=== PATIENT | female | born 1995 | race Caucasian/White ===

== ENCOUNTER 2020-01-27 11:38 | Outpatient (REF) | payer OTHER, SELFPAY | END 2020-01-27 11:39 | disposition home or self-care (01) | LOC: HO.LNP 11:38 | PROVIDERS: Visit Provider Hospitalist | DX: Z20.828 Contact with and (suspected) exposure to other viral communicable diseases (principal) | CPT/HCPCS: 87635 ==

== ENCOUNTER 2020-03-04 12:12 | Outpatient (REF) | payer OTHER, SELFPAY | END 2020-03-04 12:13 | disposition home or self-care (01) | LOC: HO.LNP 12:12 | PROVIDERS: Visit Provider Nurse Practitioner Family | DX: Z13.9 Encounter for screening, unspecified (principal) | CPT/HCPCS: 87071; 87880 ==

== ENCOUNTER 2020-06-29 08:59 | Outpatient (REF) | payer OTHER, SELFPAY | END 2020-06-29 09:00 | disposition home or self-care (01) | LOC: HO.LAB 08:59 | PROVIDERS: Visit Provider Nurse Practitioner Family | DX: R50.9 Fever, unspecified (principal); H66.003 Acute suppurative otitis media without spontaneous rupture of ear drum, bilateral; Z20.822 Contact with and (suspected) exposure to COVID-19 | CPT/HCPCS: 36415; U0003; U0005 ==

== ENCOUNTER 2020-09-21 08:27 | Outpatient (REF) | payer OTHER, SELFPAY ==
[2020-09-21 11:52] LABS: Alanine Aminotransferase 11 U/L (0-31); Aspartate Amino Transferase 14 U/L (5-31); Cholesterol 215 mg/dL; Glucose Fasting 96 mg/dL (60-99); HDL Cholesterol 48 mg/dL; LDL Cholesterol Calculated 148 mg/dl; Triglycerides 95 mg/dL
[2020-09-21 12:08] LABS: Thyroid Stimulating Hormone 0.86 uIU/mL (0.32-4.0)
[2020-09-21 17:22] LABS: CT PCR NOT DETECTED (Not Detect.); NG PCR NOT DETECTED (Not Detect.)
[2020-09-22 09:42] LABS: BV Int Neg Control Negative (Negative); BV Int Pos Control Positive (Positive)
[2020-09-22 18:32] LABS: DHEA Sulfate 255 mcg/dL (18-391)
[2020-09-25 17:26] LABS: Testosterone, Free 4.8 pg/mL (0.1-6.4); Testosterone, Total 33 ng/dL (2-45)
== END 2020-09-21 08:28 | disposition home or self-care (01) ==
LOC: HO.LAB 08:27
PROVIDERS: PCP Internal Medicine; Visit Provider Advanced Practice Midwife
DX: Z01.419 Encounter for gynecological examination (general) (routine) without abnormal findings (principal); Z11.3 Encounter for screening for infections with a predominantly sexual mode of transmission; E66.01 Morbid (severe) obesity due to excess calories; E78.5 Hyperlipidemia, unspecified; Z87.42 Personal history of other diseases of the female genital tract
CPT/HCPCS: 36415; 80061; 82627; 82947; 84402; 84403; 84443; 84450; 84460; 87480; 87491; 87510; 87591; 87660

== ENCOUNTER 2020-12-22 15:08 | Outpatient (REF) | payer OTHER, SELFPAY ==
[2020-12-22 15:44] LABS: Appearance Urine CLEAR; Color Urine STRAW; Glucose Urine UA NEG (NEG); Leukocyte Esterase Urine 1+ (NEG); Nitrite Urine NEG (NEG); PH 6.5 (5.0-8.0); UACC Culture Trigger YES; Urine Blood NEG (NEG); Urine Ketones NEG (NEG); Urine Protein NEG (NEG-TRACE)
[2020-12-22 16:10] LABS: Bacteria Urine TRACE /LPF; RBC Urine 0 /HPF (0); Squamous Epithelial Cell Urine TRACE /LPF; UACC CULT YES; WBC Urine 0 /HPF (0-4)
== END 2020-12-22 15:09 | disposition home or self-care (01) ==
LOC: HO.LNP 15:08
PROVIDERS: Visit Provider Physician Assistant
DX: N39.0 Urinary tract infection, site not specified (principal)
CPT/HCPCS: 81001; 87086; 87088; 87186

== ENCOUNTER 2021-01-04 09:23 | Outpatient (REF) | payer OTHER, SELFPAY | END 2021-01-04 09:24 | disposition home or self-care (01) | LOC: HO.HMGCLDS 09:23 | PROVIDERS: PCP Internal Medicine; Visit Provider Internal Medicine | DX: Z20.822 Contact with and (suspected) exposure to COVID-19 (principal) | CPT/HCPCS: C9803; U0003; U0005 ==

== ENCOUNTER 2021-04-08 14:45 | Outpatient (REF) | payer OTHER, SELFPAY ==
[2021-04-08 15:50] LABS: Influenza A PCR NEGATIVE (Negative); Influenza B PCR NEGATIVE (Negative); Resp Syncy Virus RNA Qual PCR NEGATIVE (Negative); SARS COV2 PCR INHOUSE POSITIVE (Negative)
== END 2021-04-08 14:46 | disposition home or self-care (01) ==
LOC: HO.LNP 14:45
PROVIDERS: Physician Assistant Medical; Visit Provider Hospitalist
DX: B34.9 Viral infection, unspecified (principal); J06.9 Acute upper respiratory infection, unspecified; Z20.822 Contact with and (suspected) exposure to COVID-19
CPT/HCPCS: 0241U

== ENCOUNTER 2021-05-06 12:20 | Outpatient (REF) | payer OTHER, SELFPAY ==
--- NOTE | ~2021-05-06 | XR_ITS ---
EXAMINATION: XR CHEST CLINICAL INFORMATION: Dyspnea COMPARISON: None TECHNIQUE: 2 views of the chest were obtained. FINDINGS: No significant abnormality is noted involving the heart, lungs, mediastinum, bony thorax or soft tissues. XR/XR chest 2V IMPRESSION: Unremarkable examination.
== END 2021-05-06 12:21 | disposition home or self-care (01) ==
LOC: HO.HMGCX 12:20
PROVIDERS: Visit Provider Internal Medicine
DX: R06.09 Other forms of dyspnea (principal); U09.9 Post COVID-19 condition, unspecified
CPT/HCPCS: 71046

== ENCOUNTER 2021-07-19 09:07 | Outpatient (REF) | payer OTHER, SELFPAY ==
[2021-07-19 15:32] LABS: CT PCR NOT DETECTED (Not Detect.); NG PCR NOT DETECTED (Not Detect.)
[2021-07-20 15:27] LABS: BV Int Neg Control Negative (Negative); BV Int Pos Control Positive (Positive)
== END 2021-07-19 09:08 | disposition home or self-care (01) ==
LOC: HO.LAB 09:07
PROVIDERS: PCP Internal Medicine; Visit Provider Advanced Practice Midwife
DX: R10.2 Pelvic and perineal pain (principal); E66.01 Morbid (severe) obesity due to excess calories; Z20.2 Contact with and (suspected) exposure to infections with a predominantly sexual mode of transmission
CPT/HCPCS: 81003; 87480; 87491; 87510; 87591; 87660; 99212

== ENCOUNTER 2021-08-16 09:06 | Outpatient (REF) | payer OTHER, SELFPAY ==
--- NOTE | ~2021-08-16 | US_ITS ---
EXAMINATION: US PELVIS CLINICAL INFORMATION: Pelvic pain. History of ovarian cyst. COMPARISON: None TECHNIQUE: Ultrasound of the pelvis is performed using both transabdominal and transvaginal transducers along with Doppler. Transvaginal imaging is performed due to inadequate visualization transabdominally. FINDINGS: UTERUS: The uterus is retroverted and measures 6.45 x 3.6 x 5.1 cm. The double wall endometrial thickness is 0.56 cm. The uterus is smooth in contour and has normal myometrial echogenicity. No visible fibroid. ADNEXA: Both ovaries are visualized. There is normal color flow to the adnexa. There is no ovarian torsion. There is no pelvic ascites or fluid collection. Right ovary measures 3.18 x 1.88 x 3.19 cm. Volume 9.99 mL. There is anechoic cyst measuring 1.7 x 1.4 x 1.7 cm. Left ovary measures 3.52 x 1.92 x 3.05 cm and volume 10.79 mL. There is no free fluid in the cul-de-sac. US/US pelvic and transvaginal IMPRESSION: Unremarkable uterus and cervix. Simple cyst right ovary measuring 1.7 cm. Left ovary is unremarkable.
== END 2021-08-16 09:07 | disposition home or self-care (01) ==
LOC: HO.HMGCX 09:06
PROVIDERS: Visit Provider Advanced Practice Midwife
DX: R10.2 Pelvic and perineal pain (principal)
CPT/HCPCS: 76830; 76856

== ENCOUNTER → 2021-08-18 10:17 | Outpatient (BNVA) | payer OTHER, SELFPAY | PROVIDERS: PCP Internal Medicine; Visit Provider Advanced Practice Midwife | DX: Z71.2 Person consulting for explanation of examination or test findings (principal); R10.2 Pelvic and perineal pain | CPT/HCPCS: 99212 ==

== ENCOUNTER 2021-08-30 06:54 | Outpatient (REF) | payer OTHER, SELFPAY ==
[2021-08-30 11:12] LABS: MANUAL DIFF FLAG NO
[2021-08-30 11:21] LABS: Basophils Percent Auto 0.5 % (0-2); Eosinophils Absolute Auto 0.3 X10*3/uL (0.0-0.4); Eosinophils Percent Auto 3.9 % (0-4); Hematocrit 40.1 % (37.0-47.0); Imm Gran Abs Auto 0.01 X10*3/uL (0.00-0.03); Imm Gran Pct Auto 0.1 % (0.0-0.4); Lymphocytes Absolute Auto 3.2 X10*3/uL (1.2-4.9); Lymphocytes Percent Auto 37.8 % (20-40); Mean Corpuscular HGB Conc 32.4 g/dl (31.0-35.0); Mean Corpuscular Hemoglobin 28.8 pg (27.0-33.0); Mean Corpuscular Volume 88.9 fL (80.0-98.0); Mean Platelet Volume 10.4 fL (9.4-12.3); Monocytes Absolute Auto 0.8 X10*3/uL (0.1-1.2); Monocytes Percent Auto 9.7 % (2-11); Neutrophils Absolute Auto 4.1 x10*3/uL (2.0-8.3); Platelet Count 270 X10*3/uL (160-400); Red Blood Count 4.51 X10*6/uL (4.20-5.50); Red Cell Distribution Width 13.2 % (11.0-16.0); White Blood Count 8.5 X10*3/uL (4.8-10.8)
[2021-08-30 11:54] LABS: Alanine Aminotransferase 15 U/L (0-31); Anion Gap 12 (12-20); Aspartate Amino Transferase 15 U/L (5-31); Blood Urea Nitrogen 11 mg/dL (9-16); Calcium 8.6 mg/dL (8.4-10.2); Carbon Dioxide 25 mmol/L (22-29); Chloride 105 mmol/L (96-108); Cholesterol 192 mg/dL; Estimated Glomerular Filt Rate > 60; Glucose Fasting 120 mg/dL (60-99); HDL Cholesterol 38 mg/dL; LDL Cholesterol Calculated 141 mg/dl; Potassium 4.1 mmol/L (3.3-5.1); Sodium 138 mmol/L (135-145); Triglycerides 68 mg/dL
[2021-08-30 11:55] LABS: TSH reflex Free T4 1.39 uIU/mL (0.32-4.0); Vitamin D 25-OH Total 17.7 ng/mL (>30)
== END 2021-08-30 06:55 | disposition home or self-care (01) ==
LOC: HO.HMGCLDS 06:54
PROVIDERS: Visit Provider Internal Medicine
DX: Z00.01 Encounter for general adult medical examination with abnormal findings (principal); K21.9 Gastro-esophageal reflux disease without esophagitis; E78.5 Hyperlipidemia, unspecified; E66.01 Morbid (severe) obesity due to excess calories; I10 Essential (primary) hypertension
CPT/HCPCS: 36415; 80048; 80061; 82306; 84443; 84450; 84460; 85025

== ENCOUNTER 2021-09-11 05:52 | Emergency (ER) | payer OTHER, SELFPAY ==
--- NOTE | 2021-09-11 | ECG_ITS ---
Test Reason : ABD PAIN Blood Pressure : / mmHG Vent. Rate : 088 BPM Atrial Rate : 088 BPM P-R Int : 154 ms QRS Dur : 094 ms QT Int : 374 ms P-R-T Axes : 051 008 020 degrees QTc Int : 452 ms Normal sinus rhythm Possible Left atrial enlargement RSR' or QR pattern in V1 suggests right ventricular conduction delay Borderline ECG No previous ECGs available Referred By: Generic ED Physician Electronically Signed By:BACILIO ALEJANDRE MD
--- NOTE | ~2021-09-11 | US_ITS ---
EXAMINATION: US ABDOMEN LIMITED CLINICAL INFORMATION: Right upper quadrant pain. COMPARISON: None TECHNIQUE: Real-time imaging of the right upper quadrant abdominal viscera. FINDINGS: PANCREAS: Unremarkable. No mass or peripancreatic inflammatory change. LIVER: The liver is normal in size. The liver contour is normal. There is diffusely increased echogenicity consistent with fatty infiltration. No focal hepatic lesion. There is no intrahepatic biliary duct dilatation seen. GALLBLADDER: Cholelithiasis is present with a calculus seen in the region of the neck. The gallbladder wall is approximately 2.5 mm diameter without fluid in the wall and without pericholecystic fluid. There was some tenderness to palpation with the transducer overlying the gallbladder. COMMON BILE DUCT: Normal in caliber measuring 0.4 cm in diameter. RIGHT KIDNEY: Normal. No hydronephrosis. No renal calculi or focal parenchymal lesions. The kidney measures 11.4 cm in maximum dimension. FREE FLUID: None. US/US abdomen limited IMPRESSION: Diffuse fatty infiltration of the liver. Cholelithiasis with tenderness to palpation overlying the gallbladder but without pericholecystic fluid or fluid within the gallbladder wall.
[2021-09-11 05:55] VITALS: BP 123/84; PULSE 97; RESP 14; TEMP 36.6; O2SAT 98; BMI 42.5
[2021-09-11 06:16] LABS: Basophils Percent Auto 0.3 % (0-2); Eosinophils Absolute Auto 0.3 X10*3/uL (0.0-0.4); Hemoglobin 13.5 g/dl (12.0-16.0); Imm Gran Abs Auto 0.02 X10*3/uL (0.00-0.03); Imm Gran Pct Auto 0.2 % (0.0-0.4); Lymphocytes Absolute Auto 3.3 X10*3/uL (1.2-4.9); Lymphocytes Percent Auto 36.6 % (20-40); MANUAL DIFF FLAG NO; Mean Corpuscular HGB Conc 33.8 g/dl (31.0-35.0); Mean Corpuscular Hemoglobin 29.3 pg (27.0-33.0); Mean Corpuscular Volume 86.8 fL (80.0-98.0); Mean Platelet Volume 9.2 fL (9.4-12.3); Monocytes Absolute Auto 0.8 X10*3/uL (0.1-1.2); Monocytes Percent Auto 8.6 % (2-11); Neutrophils Absolute Auto 4.7 x10*3/uL (2.0-8.3); Neutrophils Percent Auto 51.3 % (45-73); Platelet Count 308 X10*3/uL (160-400); Red Blood Count 4.61 X10*6/uL (4.20-5.50); Red Cell Distribution Width 13.2 % (11.0-16.0); White Blood Count 9.1 X10*3/uL (4.8-10.8)
[2021-09-11 06:24] LABS: Appearance Urine HAZY; Color Urine YELLOW; Glucose Urine UA NEG (NEG); Leukocyte Esterase Urine NEG (NEG); Nitrite Urine NEG (NEG); Specific Gravity - Urine 1.025 (1.005-1.025); UACC Culture Trigger NO; Urine Blood 3+ (NEG); Urine Ketones NEG (NEG); Urine Protein NEG (NEG-TRACE)
--- NOTE | 2021-09-11 06:26 | PC.NURSE ---
Assumed care of pt Pt c/o per-umbilical/epigastric abdominal pain x 2 days. Denies any fever/n/v. Per pt, always has soft stool/diarrhea. Pt states this morning pain started radiating to her chest. Pt states chest pain is constant, dull pain. AxO x 4, clear and complete sentences On cardiac monitors, NSR Will continue to monitor
[2021-09-11 06:27] LABS: UPreg QC Valid YES; Urine Pregnancy WEAKLY POSITIVE (NEGATIVE)
[2021-09-11 06:30] LABS: Bacteria Urine TRACE /LPF; Mucus Urine 1+ /LPF; Squamous Epithelial Cell Urine 2+ /LPF; Urine Talc Crystals 2+ /LPF; WBC Urine 0 /HPF (0-4)
[2021-09-11 06:56] LABS: Alanine Aminotransferase 20 U/L (0-31); Albumin Level 3.8 g/dL (3.5-5.0); Alkaline Phosphatase 52 U/L (39-117); Anion Gap 14 (12-20); Aspartate Amino Transferase 18 U/L (5-31); Bilirubin Total 0.4 mg/dL (0.0-1.0); Blood Urea Nitrogen 17 mg/dL (9-16); Calcium 8.8 mg/dL (8.4-10.2); Carbon Dioxide 21 mmol/L (22-29); Chloride 109 mmol/L (96-108); Creatinine Clr Calc Pharmacy 138.2; Estimated Glomerular Filt Rate > 60; Glucose Random 112 mg/dL (60-115); Potassium 3.7 mmol/L (3.3-5.1); Sodium 140 mmol/L (135-145); Total Protein 6.6 g/dL (6.5-8.0)
--- NOTE | 2021-09-11 06:57 | ED.ABDPAIN ---
HPI - Abdominal Pain General Chief Complaint: Abdominal Pain Stated Complaint: abd pain radiates towards chest Time Seen by Provider: 09/11/21 06:12 Source: patient Mode of arrival: ambulatory History of Present Illness HPI narrative: 26-year-old female without significant past medical history or surgical history who presents with complaints of right upper quadrant pain radiating into her back this started yesterday, somewhat dissipated, and then returned this morning much stronger with associated nausea but she otherwise denies vomiting, fevers, chills, diarrhea and denies any history of renal colic but states she has been having urinary frequency. She is currently being treated for BV with Flagyl. Related Data Home Medications Medication Instructions Recorded Confirmed cetirizine 10 mg capsule (All Day 10 mg PO DAILY 02/17/20 05/24/21 Allergy (cetirizine)) Previous Rx's Medication Instructions Recorded ProAir HFA 90 mcg/actuation 2 puff INHALATION Q6H PRN #8.5 g NS 02/17/21 aerosol inhaler (albuterol sulfate) albuterol sulfate 90 mcg/actuation 2 puff INHALATION Q6H #8.5 g 04/27/21 aerosol inhaler metronidazole 500 mg tablet 500 mg PO Q12H 7 Days #14 tab 07/23/21 montelukast 10 mg tablet 10 mg PO DAILY #90 tab 08/20/21 omeprazole 40 mg capsule,delayed 40 mg PO QAM #90 cap 08/26/21 release cholecalciferol (vitamin D3) 1,250 1,250 mcg PO QWEEK 90 Days #13 cap 09/01/21 mcg (50,000 unit) capsule cefdinir 300 mg capsule 300 mg PO BID 5 Days #10 cap 09/11/21 ondansetron 4 mg disintegrating 4 mg PO Q8H PRN #10 tab 09/11/21 tablet Allergies Allergy/AdvReac Type Severity Reaction Status Date / Time amoxicillin [AMOXICILLIN] Allergy Unknown RASH, hives Verified 09/11/21 05:59 azithromycin [AZITHROMYCIN] AdvReac Unknown N/V/D Verified 09/11/21 05:59 Review of Systems Review of Systems Pertinent positives and negatives as stated in HPI 10 point review of systems is otherwise negative. PMFSH Past Medical History Source: nursing notes reviewed Medical History Allergic rhinitis Chronic GERD COVID-19 olegario salguero manifesting chronic dyspnea Dyslipidemia Dysmenorrhea Epigastric abdominal pain Folliculitis Heartburn symptom History of anal fissures Impaired fasting glucose Mild intermittent asthma Obesity (BMI 30-39.9) Plantar wart Vitamin D deficiency Surgical History History of wisdom tooth extraction Family History Family History Father Depression CVD (cardiovascular disease) Myocardial infarction Mental health disorder Mother Wong syndrome Colon cancer Maternal Grandmother Wong syndrome Colon cancer Dermatomyositis Maternal Grandfather HTN (hypertension) Hypercholesterolemia Brother No problems noted. Social History Social History Housing: Apartment Alcohol intake: current Alcohol intake frequency: holidays/special occasions only Alcohol type: wine Patient Tobacco Use Status: Never used Tobacco e-Cigarette/Vaping Use: Never Used Use of substances other than those prescribed or required for medical reasons: No Substance Use Type: Marijuana Advance Directives: No Advance Directives Information Provided: Yes Current occupational status: employed Gender identity: Female Physical Exam ED Vital Signs: Vital Signs - 24 hr 09/11/21 05:55 Temperature 97.8 F Pulse Rate 97 Respiratory Rate 14 Blood Pressure 123/84 Pulse Oximetry 98 BMI result Body Mass Index 42.5 VITAL SIGNS: Reviewed. GENERAL: Elevated BMI, Well developed, well nourished, in no acute distress. HEAD: Normocephalic/atraumatic EYES: PERRLA, EOMI EARS: Ext canals without abnormality OROPHARYNX: no oral lesions noted, posterior pharynx clear LUNGS: Normal breath sounds. No adventitious sounds or accessory muscle use. SpO2<98> CARDIOVASCULAR: Regular rate and rhythm without noted murmurs ABDOMEN: Soft, right upper quadrant pain with positive Teran's, non-distended with bowel sounds, no CVA tenderness. NEUROLOGIC: Alert and oriented x 4. Course Course Course Narrative: 26-year-old female with history and clinical presentation consistent with cholecystitis but will rule out pyelonephritis/renal colic and doubt pancreatitis or gastritis. Review of all investigations demonstrates a stone within the gallbladder neck as well as patient being . She was informed of all results and was completely shocked about being as she has been trying to become for 5 years. I also discussed this case with Surgical Services who recommends at this time given that the patient is that she be discharged if she can tolerate it on a course of antibiotics with Tylenol for pain control and adhering strictly to a low-fat diet, as well as following up with an adjustment clerk/PCP to repeat hCG in 1 week. Patient is feeling much better and her pain has resolved. MDM - Abdominal Pain Lab Data Result diagrams: 09/11/21 06:12 09/11/21 06:12 Labs: Lab Results 09/11/21 09/11/21 09/11/21 Range/Units 06:12 06:12 06:19 WBC 9.1 (4.8-10.8) X10*3/uL RBC 4.61 (4.20-5.50) X10*6/uL Hgb 13.5 (12.0-16.0) g/dl Hct 40.0 (37.0-47.0) % MCV 86.8 (80.0-98.0) fL MCH 29.3 (27.0-33.0) pg MCHC 33.8 (31.0-35.0) g/dl RDW 13.2 (11.0-16.0) % Plt Count 308 (160-400) X10*3/uL MPV 9.2 L (9.4-12.3) fL Immature Gran % (Auto) 0.2 (0.0-0.4) % Neut % (Auto) 51.3 (45-73) % Lymph % (Auto) 36.6 (20-40) % [place] % (Auto) 8.6 (2-11) % Eos % (Auto) 3.0 (0-4) % Baso % (Auto) 0.3 (0-2) % Lymph # (Auto) 3.3 (1.2-4.9) X10*3/uL [place] # (Auto) 0.8 (0.1-1.2) X10*3/uL Eos # (Auto) 0.3 (0.0-0.4) X10*3/uL Baso # (Auto) 0.0 (0.0-0.2) X10*3/uL Abs Immat Gran (auto) 0.02 (0.00-0.03) X10*3/uL Absolute Neuts (auto) 4.7 (2.0-8.3) x10*3/uL Absolute Nucleated RBC 0.000 (0.0-0.012) X10*3/uL Nucleated RBC % (auto) 0.0 (0.0-0.2) /100WBC Sodium 140 (135-145) mmol/L Potassium 3.7 (3.3-5.1) mmol/L Chloride 109 H (96-108) mmol/L Carbon Dioxide 21 L (22-29) mmol/L Anion Gap 14 (12-20) BUN 17 H D (9-16) mg/dL Creatinine 0.73 (0.5-1.4) mg/dL Estim Creat Clear Calc 138.2 Estimated GFR > 60 Random Glucose 112 (60-115) mg/dL Calcium 8.8 (8.4-10.2) mg/dL Total Bilirubin 0.4 (0.0-1.0) mg/dL AST 18 (5-31) U/L ALT 20 (0-31) U/L Alkaline Phosphatase 52 (39-117) U/L Total Protein 6.6 (6.5-8.0) g/dL Albumin 3.8 (3.5-5.0) g/dL Beta HCG, Quant 25 mIU/mL Urine Color YELLOW Urine Appearance HAZY Urine pH 6.0 (5.0-8.0) Ur Specific [place] 1.025 (1.005-1.025) Urine Protein NEG (NEG-TRACE) MG/DL Urine Glucose (UA) NEG (NEG) MG/DL Urine Ketones NEG (NEG) MG/DL Urine Blood 3+ H (NEG) Urine Nitrite NEG (NEG) Ur Leukocyte Esterase NEG (NEG) Urine RBC 10-14 H (0) /HPF Urine WBC 0 (0-4) /HPF Ur Squamous Epith Cells 2+ /LPF Talc Crystals 2+ /LPF Urine Bacteria TRACE /LPF Urine Mucus 1+ /LPF Urine Test (NEGATIVE) 09/11/21 Range/Units 06:19 WBC (4.8-10.8) X10*3/uL RBC (4.20-5.50) X10*6/uL Hgb (12.0-16.0) g/dl Hct (37.0-47.0) % MCV (80.0-98.0) fL MCH (27.0-33.0) pg MCHC (31.0-35.0) g/dl RDW (11.0-16.0) % Plt Count (160-400) X10*3/uL MPV (9.4-12.3) fL Immature Gran % (Auto) (0.0-0.4) % Neut % (Auto) (45-73) % Lymph % (Auto) (20-40) % [place] % (Auto) (2-11) % Eos % (Auto) (0-4) % Baso % (Auto) (0-2) % Lymph # (Auto) (1.2-4.9) X10*3/uL [place] # (Auto) (0.1-1.2) X10*3/uL Eos # (Auto) (0.0-0.4) X10*3/uL Baso # (Auto) (0.0-0.2) X10*3/uL Abs Immat Gran (auto) (0.00-0.03) X10*3/uL Absolute Neuts (auto) (2.0-8.3) x10*3/uL Absolute Nucleated RBC (0.0-0.012) X10*3/uL Nucleated RBC % (auto) (0.0-0.2) /100WBC Sodium (135-145) mmol/L Potassium (3.3-5.1) mmol/L Chloride (96-108) mmol/L Carbon Dioxide (22-29) mmol/L Anion Gap (12-20) BUN (9-16) mg/dL Creatinine (0.5-1.4) mg/dL Estim Creat Clear Calc Estimated GFR Random Glucose (60-115) mg/dL Calcium (8.4-10.2) mg/dL Total Bilirubin (0.0-1.0) mg/dL AST (5-31) U/L ALT (0-31) U/L Alkaline Phosphatase (39-117) U/L Total Protein (6.5-8.0) g/dL Albumin (3.5-5.0) g/dL Beta HCG, Quant mIU/mL Urine Color Urine Appearance Urine pH (5.0-8.0) Ur Specific [place] (1.005-1.025) Urine Protein (NEG-TRACE) MG/DL Urine Glucose (UA) (NEG) MG/DL Urine Ketones (NEG) MG/DL Urine Blood (NEG) Urine Nitrite (NEG) Ur Leukocyte Esterase (NEG) Urine RBC (0) /HPF Urine WBC (0-4) /HPF Ur Squamous Epith Cells /LPF Talc Crystals /LPF Urine Bacteria /LPF Urine Mucus /LPF Urine Test WEAKLY POSITIVE H (NEGATIVE) Discharge Plan Discharge Clinical Impression: Biliary colic, Patient Disposition: Home, Self-Care Instructions: Vitamins (By mouth), (ED), Biliary Colic (ED), Low Fat Diet (ED) Additional Instructions: 1. Increase plenty of water and start vitamins. Keep a low fat diet (information has been printed for you and you can look on the internet as well). 2. Complete entire course of antibiotics as prescribed. Only Tylenol for pain. 3. Follow up with OB by calling Monday morning, and repeat your test. Return to the ER for worsening symptoms. Prescriptions: New ondansetron 4 mg tablet,disintegrating 4 mg PO Q8H PRN (Reason: nausea and vomiting) Qty: 10 0RF cefdinir 300 mg capsule 300 mg PO BID 5 Days Qty: 10 0RF No Action metronidazole 500 mg tablet 500 mg PO Q12H 7 Days Qty: 14 0RF montelukast 10 mg tablet 10 mg PO DAILY Qty: 90 3RF omeprazole 40 mg capsule,delayed release(DR/EC) 40 mg PO QAM Qty: 90 0RF All Day Allergy (cetirizine) 10 mg capsule 10 mg PO DAILY 0RF albuterol sulfate [ProAir HFA] 90 mcg/actuation HFA aerosol inhaler 2 puff inhalation Q6H PRN (Reason: shortness of breath or wheezing) Qty: 8.5 1RF albuterol sulfate 90 mcg/actuation HFA aerosol inhaler 2 puff inhalation Q6H Qty: 8.5 1RF cholecalciferol (vitamin D3) 1,250 mcg (50,000 unit) capsule 1,250 mcg PO QWEEK 90 Days Qty: 13 0RF
[2021-09-11 07:34] LABS: HCG Quantitative 25 mIU/mL
[2021-09-11] MEDS: Ketorolac Tromethamine 30 MG/ML VIAL 15 MG IVPUSH (07:59)
[2021-09-11] MEDS: ondansetron HCL 4 MG/2 ML VIAL IVPUSH (07:59)
--- NOTE | 2021-09-11 08:07 | PC.NURSE ---
Ultrasound at bedside
== END 2021-09-11 10:58 | disposition home or self-care (01) ==
PROVIDERS: Emergency Provider Student in an Organized Health Care Education/Training Program
DX: O26.91 Pregnancy related conditions, unspecified, first trimester (principal); Z3A.00 Weeks of gestation of pregnancy not specified; K80.50 Calculus of bile duct without cholangitis or cholecystitis without obstruction; R10.11 Right upper quadrant pain; Z79.899 Other long term (current) drug therapy
CPT/HCPCS: 36415; 76705; 80053; 81001; 81025; 84702; 85025; 93005; 96374; 96375; 99284; J1885; J2405

== ENCOUNTER 2021-09-13 10:05 | Outpatient (REF) | payer OTHER, SELFPAY ==
[2021-09-13 12:23] LABS: HCG Quantitative 18 mIU/mL
[2021-09-13 14:18] LABS: CT PCR NOT DETECTED (Not Detect.); NG PCR NOT DETECTED (Not Detect.)
[2021-09-14 11:01] LABS: BV Int Neg Control Negative (Negative); BV Int Pos Control Positive (Positive)
== END 2021-09-13 10:06 | disposition home or self-care (01) ==
LOC: HO.LAB 10:05
PROVIDERS: PCP Internal Medicine; Visit Provider Advanced Practice Midwife
DX: O20.0 Threatened abortion (principal)
CPT/HCPCS: 36415; 81025; 84702; 87480; 87491; 87510; 87591; 87660; 99212

== ENCOUNTER 2021-09-15 09:59 | Outpatient (REF) | payer OTHER, SELFPAY ==
[2021-09-15 12:03] LABS: HCG Quantitative 9 mIU/mL
== END 2021-09-15 10:00 | disposition home or self-care (01) ==
LOC: HO.HMGCLDS 09:59
PROVIDERS: PCP Internal Medicine; Visit Provider Advanced Practice Midwife
DX: O20.0 Threatened abortion (principal); Z3A.01 Less than 8 weeks gestation of pregnancy
CPT/HCPCS: 36415; 84702

== ENCOUNTER → 2021-09-20 16:18 | Outpatient (BNVA) | payer OTHER, SELFPAY | PROVIDERS: PCP Internal Medicine; Visit Provider Nurse Practitioner | DX: K21.9 Gastro-esophageal reflux disease without esophagitis (principal); E66.01 Morbid (severe) obesity due to excess calories; K80.20 Calculus of gallbladder without cholecystitis without obstruction; R10.13 Epigastric pain; K58.9 Irritable bowel syndrome, unspecified; Z87.59 Personal history of other complications of pregnancy, childbirth and the puerperium | CPT/HCPCS: 99202; 99212 ==

== ENCOUNTER 2021-09-25 15:42 | Outpatient (REF) | payer OTHER, SELFPAY ==
[2021-09-25 16:05] LABS: Appearance Urine HAZY; Color Urine YELLOW; Glucose Urine UA NEG (NEG); Leukocyte Esterase Urine TRACE (NEG); Nitrite Urine NEG (NEG); Specific Gravity - Urine 1.025 (1.005-1.025); UACC Culture Trigger NO; Urine Blood 1+ (NEG); Urine Ketones NEG (NEG); Urine Protein NEG (NEG-TRACE)
[2021-09-25 16:26] LABS: Bacteria Urine 1+ /LPF; Squamous Epithelial Cell Urine 1+ /LPF; UACC CULT YES
== END 2021-09-25 15:43 | disposition home or self-care (01) ==
LOC: HO.LNP 15:42
PROVIDERS: Visit Provider Physician Assistant Medical
DX: R35.0 Frequency of micturition (principal)
CPT/HCPCS: 81001; 81003; 87086; 87147

== ENCOUNTER 2021-10-04 09:07 | Outpatient (REF) | payer OTHER, SELFPAY ==
[2021-10-04 12:01] LABS: HCG Quantitative < 2 mIU/mL
== END 2021-10-04 09:08 | disposition home or self-care (01) ==
LOC: HO.HMGCLDS 09:07
PROVIDERS: Absent Provider Nurse Practitioner; PCP Internal Medicine; Visit Provider Advanced Practice Midwife
DX: O20.0 Threatened abortion (principal)
CPT/HCPCS: 36415; 84702

== ENCOUNTER 2021-10-24 06:33 | Emergency (ER) | payer OTHER, SELFPAY ==
--- NOTE | ~2021-10-24 | US_ITS ---
EXAMINATION: US ABDOMEN LIMITED CLINICAL INFORMATION: Pain. COMPARISON: 09/11/2021 TECHNIQUE: Real-time imaging of the right upper quadrant abdominal viscera. FINDINGS: Region of the pancreas is within normal limits. Liver once again shows increased echogenicity most consistent with fatty change. Gallstone in the gallbladder is noted. No evidence of gallbladder wall edema. No Teran's sign on this exam. Common duct is 4 mm. The right kidney is 11 cm within normal limits. US/US abdomen limited IMPRESSION: Cholelithiasis. No sonographic evidence for cholecystitis. Once again hyperechoic liver most consistent with fatty change
[2021-10-24 07:27] VITALS: BP 147/79; PULSE 78; RESP 18; TEMP 36.6; O2SAT 97; BMI 43.4
[2021-10-24 07:59] LABS: MANUAL DIFF FLAG NO
[2021-10-24 08:00] LABS: Basophils Percent Auto 0.3 % (0-2); Eosinophils Absolute Auto 0.3 X10*3/uL (0.0-0.4); Hematocrit 40.2 % (37.0-47.0); Hemoglobin 13.3 g/dl (12.0-16.0); Imm Gran Abs Auto 0.01 X10*3/uL (0.00-0.03); Imm Gran Pct Auto 0.1 % (0.0-0.4); Lymphocytes Absolute Auto 2.7 X10*3/uL (1.2-4.9); Lymphocytes Percent Auto 31.4 % (20-40); Mean Corpuscular HGB Conc 33.1 g/dl (31.0-35.0); Mean Corpuscular Hemoglobin 28.6 pg (27.0-33.0); Mean Corpuscular Volume 86.5 fL (80.0-98.0); Mean Platelet Volume 9.6 fL (9.4-12.3); Monocytes Absolute Auto 0.7 X10*3/uL (0.1-1.2); Monocytes Percent Auto 8.3 % (2-11); Neutrophils Absolute Auto 4.8 x10*3/uL (2.0-8.3); Neutrophils Percent Auto 55.9 % (45-73); Platelet Count 275 X10*3/uL (160-400); Red Blood Count 4.65 X10*6/uL (4.20-5.50); Red Cell Distribution Width 13.1 % (11.0-16.0); White Blood Count 8.6 X10*3/uL (4.8-10.8)
[2021-10-24 08:02] LABS: Appearance Urine CLOUDY; Color Urine YELLOW; Glucose Urine UA NEG (NEG); Leukocyte Esterase Urine NEG (NEG); Nitrite Urine NEG (NEG); PH 7.5 (5.0-8.0); Specific Gravity - Urine 1.015 (1.005-1.025); Urine Blood NEG (NEG); Urine Ketones NEG (NEG); Urine Protein NEG (NEG-TRACE)
[2021-10-24 08:04] LABS: UPreg QC Valid YES; Urine Pregnancy NEGATIVE (NEGATIVE)
[2021-10-24 08:20] LABS: Alanine Aminotransferase 9 U/L (0-31); Alkaline Phosphatase 61 U/L (39-117); Anion Gap 12 (12-20); Aspartate Amino Transferase 13 U/L (5-31); Bilirubin Direct < 0.2 mg/dL (0.0-0.5); Bilirubin Total < 0.2 mg/dL (0.0-1.0); Blood Urea Nitrogen 16 mg/dL (9-16); Calcium 8.7 mg/dL (8.4-10.2); Carbon Dioxide 25 mmol/L (22-29); Chloride 107 mmol/L (96-108); Creatinine Clr Calc Pharmacy 127.7; Estimated Glomerular Filt Rate > 60; Glucose Random 95 mg/dL (60-115); Potassium 4.4 mmol/L (3.3-5.1); Sodium 140 mmol/L (135-145); Total Protein 6.8 g/dL (6.5-8.0)
--- NOTE | 2021-10-24 09:15 | ED.ABDPAIN ---
HPI - Abdominal Pain General Chief Complaint: Abdominal Pain Stated Complaint: gallbladder & back pain x2 days Time Seen by Provider: 10/24/21 08:50 Source: patient Mode of arrival: ambulatory Limitations: no limitations History of Present Illness HPI narrative: 26-year-old female with history of gallstones presents to ED for right upper quadrant pain and back pain after he had 2 days of eating fatty fried food. Patient denies any nausea, vomiting, fever, or chills. Patient denies any chest pain, shortness of breath, pleurisy, leg swelling, calf pain, coughing up blood, recent long travel, recent surgery, history blood clots, recent trauma, or oral control pills Related Data Home Medications Medication Instructions Recorded Confirmed cetirizine 10 mg capsule (All Day 10 mg PO DAILY 02/17/20 05/24/21 Allergy (cetirizine)) Previous Rx's Medication Instructions Recorded ProAir HFA 90 mcg/actuation 2 puff inhalation Q6H PRN 02/17/21 aerosol inhaler (albuterol sulfate) shortness of breath or wheezing #8.5 grams albuterol sulfate 90 mcg/actuation 2 puff inhalation Q6H #8.5 grams 04/27/21 aerosol inhaler montelukast 10 mg tablet 10 mg PO DAILY #90 tabs 08/20/21 cholecalciferol (vitamin D3) 1,250 1,250 mcg PO QWEEK 90 days #13 caps 09/01/21 mcg (50,000 unit) capsule ondansetron 4 mg disintegrating 4 mg PO Q8H PRN nausea and 09/11/21 tablet vomiting #10 tabs [id number] 1 cap PO QID 30 days #120 caps 09/20/21 24,000-76,000-120,000 unit capsule,delayed rel (Creon) pantoprazole 40 mg tablet,delayed 40 mg PO DAILY 30 days #30 tabs 09/20/21 release (Protonix) nitrofurantoin macrocrystal 100 mg 100 mg PO Q12H 5 days #10 caps 09/25/21 capsule oxycodone 5 mg capsule 5 mg PO TID PRN pain 3 days #9 caps 10/24/21 Allergies Allergy/AdvReac Type Severity Reaction Status Date / Time amoxicillin [AMOXICILLIN] Allergy Unknown RASH, hives Verified 06/27/22 08:35 azithromycin [AZITHROMYCIN] AdvReac Unknown N/V/D Verified 10/04/21 08:35 Review of Systems Review of Systems right upper quadrant pain and back pain Yes all other systems are reviewed and are negative [facility] Past Medical History Medical History Epigastric abdominal pain Folliculitis Heartburn symptom History of anal fissures Obesity (BMI 30-39.9) Plantar wart Surgical History History of wisdom tooth extraction Hx of colonoscopy Family History Family History Father Depression CVD (cardiovascular disease) Myocardial infarction Mental health disorder Mother Wong syndrome Colon cancer Maternal Grandmother Wong syndrome Colon cancer Dermatomyositis Maternal Grandfather HTN (hypertension) Hypercholesterolemia Brother No problems noted. Social History Social History Housing: Apartment Alcohol intake: current Alcohol intake frequency: does not drink Alcohol type: wine Patient Tobacco Use Status: Never used Tobacco e-Cigarette/Vaping Use: Never Used Use of substances other than those prescribed or required for medical reasons: Yes Substance Use Type: Marijuana Advance Directives: No Advance Directives Information Provided: Yes Current occupational status: employed Gender identity: Female Physical Exam ED Vital Signs: Vital Signs - 24 hr 10/24/21 07:27 10/24/21 10:44 Temperature 97.9 F Pulse Rate 78 78 Respiratory Rate 18 20 Blood Pressure 147/79 H 108/62 Pulse Oximetry 97 99 Oxygen Delivery Method Room Air Room Air BMI result Body Mass Index 43.4 Const General: cooperative, healthy appearing, comfortable, no acute distress, well developed, alert, awake and Physically active Orientation/consciousness: oriented to time and patient oriented x3 HENMT Head: Yes normal to inspection, Yes No palpable skull fracture present, Yes normocephalic, Yes atraumatic and No abrasion Eyes General: appearance normal, both eyes and all related structures Neck Neck: Yes normal visual inspection, Yes full ROM, Yes no lymphadenopathy, Yes no meningeal signs, Yes trachea midline, Yes supple, No anterior neck swelling and No tender Chest Chest palpation & inspection: normal inspection of the chest and normal palpation of entire chest wall Resp Effort & Inspection: normal respiratory effort and able to speak in complete sentences Auscultation: clear to auscultation bilaterally Cardio Jugular venous distension: no JVD Heart sounds: S1 normal heart sound present and S2 normal heart sound present GI Inspection: Yes normal to inspection and No abdominal wall ecchymosis Palpation (GI): Soft to palpation, not firm, Tenderness to palpation present (GI) in the RUQ; Teran's sign negative, no guarding and not rigid General: No CVA tenderness and Yes no CVA tenderness Back/Spine/Pelvis Back: no CVA tenderness, No CVA tenderness and No back tenderness Skin General skin exam: no rashes or lesions noted and elasticity normal Neuro General: oriented to time, patient oriented x3, gait normal, no meningeal signs and CN's II-XI intact bilaterally Cranial nerves: Yes CN's II-XII intact bilaterally Extrem General: Yes normal to inspection and Yes full ROM Psych Appearance: grossly normal, well kempt and not disheveled Course Course Course Narrative: labs ordered. Reevaluation(s) Reevaluation #1: Labs are normal. Negative for white blood cell count elevated liver enzymes. Will send for ultrasound to make sure there is no cholecystitis. Time: 09:26 Reevaluation #2: ultrasound shows gallstones but negative for cholecystitis. Patient comfortable in bed watching TV and has not asked for any pain medication. Patient educated on changing her diet and not eating fatty food which were increased risk of cholecystitis. Patient will be given outpatient surgery information for follow-up. Patient will be discharged with pain medication. Time: 11:34 MDM - Abdominal Pain MDM Narrative Medical decision making narrative: cholethiasis Lab Data Result diagrams: 10/24/21 07:57 10/24/21 07:57 Labs: Lab Results 10/24/21 10/24/21 10/24/21 Range/Units 07:57 07:57 07:57 WBC 8.6 (4.8-10.8) X10*3/uL RBC 4.65 (4.20-5.50) X10*6/uL Hgb 13.3 (12.0-16.0) g/dl Hct 40.2 (37.0-47.0) % MCV 86.5 (80.0-98.0) fL MCH 28.6 (27.0-33.0) pg MCHC 33.1 (31.0-35.0) g/dl RDW 13.1 (11.0-16.0) % Plt Count 275 (160-400) X10*3/uL MPV 9.6 (9.4-12.3) fL Immature Gran % (Auto) 0.1 (0.0-0.4) % Neut % (Auto) 55.9 (45-73) % Lymph % (Auto) 31.4 (20-40) % [place] % (Auto) 8.3 (2-11) % Eos % (Auto) 4.0 (0-4) % Baso % (Auto) 0.3 (0-2) % Lymph # (Auto) 2.7 (1.2-4.9) X10*3/uL [place] # (Auto) 0.7 (0.1-1.2) X10*3/uL Eos # (Auto) 0.3 (0.0-0.4) X10*3/uL Baso # (Auto) 0.0 (0.0-0.2) X10*3/uL Abs Immat Gran (auto) 0.01 (0.00-0.03) X10*3/uL Absolute Neuts (auto) 4.8 (2.0-8.3) x10*3/uL Absolute Nucleated RBC 0.000 (0.0-0.012) X10*3/uL Nucleated RBC % (auto) 0.0 (0.0-0.2) /100WBC Sodium 140 (135-145) mmol/L Potassium 4.4 (3.3-5.1) mmol/L Chloride 107 (96-108) mmol/L Carbon Dioxide 25 (22-29) mmol/L Anion Gap 12 (12-20) BUN 16 (9-16) mg/dL Creatinine 0.80 (0.5-1.4) mg/dL Estim Creat Clear Calc 127.7 Estimated GFR > 60 Random Glucose 95 (60-115) mg/dL Calcium 8.7 (8.4-10.2) mg/dL Total Bilirubin < 0.2 (0.0-1.0) mg/dL Direct Bilirubin < 0.2 (0.0-0.5) mg/dL AST 13 (5-31) U/L ALT 9 (0-31) U/L Alkaline Phosphatase 61 (39-117) U/L Total Protein 6.8 (6.5-8.0) g/dL Albumin 4.0 (3.5-5.0) g/dL Lipase 12 (8-78) U/L Urine Color YELLOW Urine Appearance CLOUDY Urine pH 7.5 (5.0-8.0) Ur Specific [place] 1.015 (1.005-1.025) Urine Protein NEG (NEG-TRACE) MG/DL Urine Glucose (UA) NEG (NEG) MG/DL Urine Ketones NEG (NEG) MG/DL Urine Blood NEG (NEG) Urine Nitrite NEG (NEG) Ur Leukocyte Esterase NEG (NEG) Urine Test (NEGATIVE) 10/24/21 Range/Units 07:57 WBC (4.8-10.8) X10*3/uL RBC (4.20-5.50) X10*6/uL Hgb (12.0-16.0) g/dl Hct (37.0-47.0) % MCV (80.0-98.0) fL MCH (27.0-33.0) pg MCHC (31.0-35.0) g/dl RDW (11.0-16.0) % Plt Count (160-400) X10*3/uL MPV (9.4-12.3) fL Immature Gran % (Auto) (0.0-0.4) % Neut % (Auto) (45-73) % Lymph % (Auto) (20-40) % [place] % (Auto) (2-11) % Eos % (Auto) (0-4) % Baso % (Auto) (0-2) % Lymph # (Auto) (1.2-4.9) X10*3/uL [place] # (Auto) (0.1-1.2) X10*3/uL Eos # (Auto) (0.0-0.4) X10*3/uL Baso # (Auto) (0.0-0.2) X10*3/uL Abs Immat Gran (auto) (0.00-0.03) X10*3/uL Absolute Neuts (auto) (2.0-8.3) x10*3/uL Absolute Nucleated RBC (0.0-0.012) X10*3/uL Nucleated RBC % (auto) (0.0-0.2) /100WBC Sodium (135-145) mmol/L Potassium (3.3-5.1) mmol/L Chloride (96-108) mmol/L Carbon Dioxide (22-29) mmol/L Anion Gap (12-20) BUN (9-16) mg/dL Creatinine (0.5-1.4) mg/dL Estim Creat Clear Calc Estimated GFR Random Glucose (60-115) mg/dL Calcium (8.4-10.2) mg/dL Total Bilirubin (0.0-1.0) mg/dL Direct Bilirubin (0.0-0.5) mg/dL AST (5-31) U/L ALT (0-31) U/L Alkaline Phosphatase (39-117) U/L Total Protein (6.5-8.0) g/dL Albumin (3.5-5.0) g/dL Lipase (8-78) U/L Urine Color Urine Appearance Urine pH (5.0-8.0) Ur Specific [place] (1.005-1.025) Urine Protein (NEG-TRACE) MG/DL Urine Glucose (UA) (NEG) MG/DL Urine Ketones (NEG) MG/DL Urine Blood (NEG) Urine Nitrite (NEG) Ur Leukocyte Esterase (NEG) Urine Test NEGATIVE (NEGATIVE) Discharge Plan Discharge Clinical Impression: Gallstones Patient Disposition: Home, Self-Care Instructions: Gallstones (ED) Additional Instructions: Your Blood came back normal. Your ultrasound shows gallstones, but no cholecystitis. Return to the ED immediately for any worsening abdominal pain, nausea, vomiting, vomiting green bile, chest pain, shortness of breath, weakness, dizziness, decreased appetite, or any other concerning symptoms. You will need to follow up with outpatient surgeon. You need to avoid fatty fried food. Prescriptions: New oxycodone 5 mg capsule 5 mg PO TID PRN (Reason: pain) 3 Days Qty: 9 0RF Rx Instructions: Partial Fill upon patient request. Side effect is drowsiness. Do not take at work or while driving. No Action montelukast 10 mg tablet 10 mg PO DAILY Qty: 90 3RF ondansetron 4 mg tablet,disintegrating 4 mg PO Q8H PRN (Reason: nausea and vomiting) Qty: 10 0RF All Day Allergy (cetirizine) 10 mg capsule 10 mg PO DAILY albuterol sulfate [ProAir HFA] 90 mcg/actuation HFA aerosol inhaler 2 puff inhalation Q6H PRN (Reason: shortness of breath or wheezing) Qty: 8.5 1RF nitrofurantoin macrocrystal 100 mg capsule 100 mg PO Q12H 5 Days Qty: 10 0RF Rx Instructions: must administer with a meal/food albuterol sulfate 90 mcg/actuation HFA aerosol inhaler 2 puff inhalation Q6H Qty: 8.5 1RF cholecalciferol (vitamin D3) 1,250 mcg (50,000 unit) capsule 1,250 mcg PO QWEEK 90 Days Qty: 13 0RF pantoprazole [Protonix] 40 mg tablet,delayed release (DR/EC) 40 mg PO DAILY 30 Days Qty: 30 6RF Creon 24,000-76,000 -120,000 unit capsule,delayed release(DR/EC) 1 cap PO QID 30 Days Qty: 120 3RF Rx Instructions: administer with meals and/or snacks Referrals: Mikie Mark MD [Physician] - (Gallstones) Stand Alone Forms: Work/School Release Interventions: ED Discharge Assessment Last Done: 10/24/21 12:02 Discharge Date/Time: 10/24/21 12:02 Print Language: Nepalese
[2021-10-24 09:19] LABS: Lipase 12 U/L (8-78)
[2021-10-24 10:44] VITALS: BP 108/62; PULSE 78; RESP 20; O2SAT 99
== END 2021-10-24 12:02 | disposition home or self-care (01) ==
PROVIDERS: Physician Assistant; Emergency Provider Emergency Medicine; PCP Internal Medicine
DX: K80.80 Other cholelithiasis without obstruction (principal); R10.11 Right upper quadrant pain; M54.50 Low back pain, unspecified; Z79.899 Other long term (current) drug therapy
CPT/HCPCS: 36415; 76705; 80048; 80076; 81003; 81025; 83690; 85025; 99284

== ENCOUNTER → 2021-11-12 08:51 | Outpatient (BNVA) | payer OTHER, SELFPAY | PROVIDERS: PCP Internal Medicine; Referring Provider Internal Medicine; Visit Provider Surgery | DX: K80.20 Calculus of gallbladder without cholecystitis without obstruction (principal); E66.01 Morbid (severe) obesity due to excess calories; J45.909 Unspecified asthma, uncomplicated; Z68.41 Body mass index [BMI] 40.0-44.9, adult | CPT/HCPCS: 99202 ==

== ENCOUNTER → 2021-12-02 06:32 | Day surgery (SDC) | payer OTHER, SELFPAY ==
[2021-11-25 15:18] VITALS: BMI 42.7
--- NOTE | 2021-11-30 15:41 | W.PM.OPN ---
Operative Note Operative Note Narrative: Preop diagnosis: [Biliary colic] Postop diagnosis: [] Procedure: [Laparoscopic cholecystectomy] Surgeon: Reymundo Vickers MD Assist: [] Anesthesia: [General endotracheal; local is ropivacaine 0.5%] Estimated blood loss: [3cc] Specimen: [Gallbladder with content] Intraoperative findings: [] Indications: [The patient is a 26-year-old woman who has experienced 2 episodes of biliary colic that brought her to the emergency department. Ultrasound confirmed cholelithiasis. Options including continued observation and 2nd opinion were discussed with the patient and her grandmother at the office visit. The inherent risks to cholecystectomy were discussed and include but are not limited to: Bleeding that could require another operation or blood transfusion, the need for open surgery, the unlikely but possible issue of bile leak that could require an ERCP, the risk of retained common duct stones that could require an ERCP, the risk of common bile duct injury which would require transfer to a larger institution for another operation. Patient seemed to understand her options, declined a classification control clerk or 2nd opinion and wants to proceed. ] Procedure: [The patient was identified by myself in preoperative holding and again in the operating room and placed supine on the table. The patient voided bladder contact lens manufacturer, sequential compression stockings were in place, subcu heparin had been administered and antibiotics per protocol were given. The patient was induced in general endotracheal anesthesia administered with excellent effect. An appropriate time-out was performed. A footboard was utilized. The patient's abdomen was widely prepped and draped in the usual manner for surgery using chlorhexidine. Preemptive local was used at all trocar insertion sites. Again at the supraumbilical location and after infiltrating local, made a stab incision and placed a Veress needle without difficulty. An appropriate drop test was performed and a pneumoperitoneum of 15 mmHg was obtained using carbon dioxide. Next, the needle was withdrawn and a 5 mm/30 degree laparoscoped over Optiview trocar was used to access the abdomen without incident. Upon examining the abdomen, there was no evidence of injury from the Veress needle or trocar. Next, 5 mm trocars were placed in the epigastric, subcostal and right anterior axillary line just above the line of the umbilicus. Under direct laparoscopic vision, the 5 mm umbilical port was upsized to a 10 mm. The patient was then positioned in reverse Trendelenburg position and banked left. The gallbladder was clearly identified and grasped by its fundus. It was retracted cranially and anteriorly and dissection began in the cystic triangle. The cystic duct was identified at its junction on the gallbladder and dissection began laterally, then circumferentially dissected using the [place] dissector and hook. The cystic artery was then carefully identified and circumferentially dissected. Once dissection of both structures was complete and the critical view of safety demonstrated, the duct and artery were double clipped proximally and once distally and sharply divided. Electrocautery was used to remove the gallbladder from its fossa on the liver. Liver bed was inspected for hemostasis and the clips were noted to be on the respective structures. The gallbladder was placed in an Endo-Catch bag and delivered through the umbilicus under direct laparoscopic vision. The abdomen was again inspected with the laparoscoped and a abdomen deflated to assess for hemostasis. The patient was returned to neutral position, the abdomen deflated and the fascia of the supraumbilical incision closed with interrupted Vicryl sutures. Skin was closed with 4-0 Monocryl subcuticular sutures. Mastisol and Steri-Strips were applied followed by Band-Aids. The patient tolerated the procedure well and was extubated recovered in stable condition. All sponge instrument counts were correct. At the patient's request I called [] at [] and apprise them of the operation and plan. Their questions seemed to be satisfactorily answered.]
[2021-12-02 07:05] LABS: UPreg QC Valid YES
[2021-12-02 07:06] LABS: Urine Pregnancy WEAKLY POSITIVE (NEGATIVE)
--- NOTE | 2021-12-02 07:17 | MHC.SHP ---
Pre-Procedural Eval Section A Date of Service: 12/02/21 The patient is an INPATIENT: No The History & Physical has been completed within 30 days and I have reviewed it.: Yes Section B Chief Complaint: Calculus of gallbladder without cholecystitis Details of Present Illness: States she had a miscarriage in September and that her blood beta hCG dropped to 0. This morning, she has a positive beta hCG urine test and blood test is pending. The patient reports that she has been trying to get to increase her family and has been advised that she may need to reschedule surgery and try for dietary management of her gallbladder disease. Will reassess. ADDENDUM: patient is 3-4 weeks based on blood hCG level. She will follow up with me in the office and reschedule surgery. Continue low-fat diet for now Allergies: Allergies Allergy/AdvReac Type Severity Reaction Status Date / Time amoxicillin [AMOXICILLIN] Allergy Unknown RASH, hives Verified 11/12/21 09:03 azithromycin [AZITHROMYCIN] AdvReac Unknown N/V/D Verified 11/12/21 09:03 Plan I have reviewed the history and physical and performed a pertinent physical examination on my patient. No changes have occurred unless specified.
[2021-12-02 07:43] LABS: HCG Quantitative 60 mIU/mL
--- NOTE | 2021-12-02 07:49 | PC.NURSE ---
Patient HCG was positive. Serum drawn. Dr. Tejeda spoke with patient and cancelled procedure for today. Dr. Vickers had spoke with patient with possibility of cancellation this a.m. and how to f/u with him in office to follow her gall bladder symptoms as needed.
== END | disposition home or self-care (01) ==
PROVIDERS: Anesthesiology; PCP Internal Medicine; Visit Provider Surgery
DX: K80.20 Calculus of gallbladder without cholecystitis without obstruction (principal); Z53.8 Procedure and treatment not carried out for other reasons; J45.20 Mild intermittent asthma, uncomplicated; E66.01 Morbid (severe) obesity due to excess calories; Z68.41 Body mass index [BMI] 40.0-44.9, adult; Z79.899 Other long term (current) drug therapy; Z88.1 Allergy status to other antibiotic agents
CPT/HCPCS: 36415; 81025; 84702; J0330; J1100; J2405

== ENCOUNTER → 2021-12-03 12:31 | Outpatient (BNVA) | payer OTHER, SELFPAY | PROVIDERS: PCP Internal Medicine; Visit Provider Advanced Practice Midwife | DX: O99.210 Obesity complicating pregnancy, unspecified trimester (principal); E66.9 Obesity, unspecified; Z3A.00 Weeks of gestation of pregnancy not specified | CPT/HCPCS: 81025; 99212 ==

== ENCOUNTER 2021-12-04 08:06 | Outpatient (REF) | payer OTHER, SELFPAY ==
[2021-12-04 10:03] LABS: HCG Quantitative 173 mIU/mL
== END 2021-12-04 08:07 | disposition home or self-care (01) ==
LOC: HO.LAB 08:06
PROVIDERS: PCP Internal Medicine; Visit Provider Advanced Practice Midwife
DX: Z32.01 Encounter for pregnancy test, result positive (principal)
CPT/HCPCS: 36415; 84702

== ENCOUNTER 2021-12-17 13:29 | Outpatient (REF) | payer OTHER, SELFPAY ==
[2021-12-17 15:10] LABS: HCG Quantitative 28057 mIU/mL
== END 2021-12-17 13:30 | disposition home or self-care (01) ==
LOC: HO.LAB 13:29
PROVIDERS: PCP Internal Medicine; Visit Provider Advanced Practice Midwife
DX: Z34.90 Encounter for supervision of normal pregnancy, unspecified, unspecified trimester (principal)
CPT/HCPCS: 36415; 84702

== ENCOUNTER 2021-12-19 08:03 | Emergency (ER) | payer OTHER, SELFPAY ==
--- NOTE | ~2021-12-19 | US_ITS ---
EXAMINATION: US OBSTETRICAL ULTRASOUND CLINICAL INFORMATION: 6 week gestational age with vaginal bleeding. COMPARISON: August 26, 2021. LMP: November 06, 2021. Gestational age by maternal dates is 6 weeks 1 day. Estimated date of delivery by maternal dates is August 13, 2022. TECHNIQUE: Ultrasound of the maternal pelvis is performed using transabdominal and transvaginal transducers. Transvaginal imaging is performed due to inadequate visualization transabdominally. M-mode Doppler is also performed. FINDINGS: There is a single intrauterine gestational sac with visible yolk sac, embryo/fetus, and cardiac activity. There is no significant subchorionic hemorrhage or hematoma. HR: 115 beats per minute. CRL (crown rump length): 0.4 cm (6 weeks 1 day +/- 4 days). JOSE M (estimated date of delivery): August 13, 2022 +/- 4 days. MATERNAL ADNEXA: The right maternal ovary measures 3.3 x 2.2 x 2.1 cm. It appears to contain a corpus luteum. The left maternal ovary measures 1.5 x 1.5 x 1.4 cm. No maternal adnexal mass is appreciated. No maternal pelvic ascites is seen. US/US OB pelvic and transvaginal IMPRESSION: 1. Single intrauterine gestation with ultrasound gestational age of 6 weeks 1 day +/- 4 days. 2. Estimated date of delivery is August 13, 2022 +/- 4 days. 3. No evidence of maternal adnexal mass or pelvic ascites.
[2021-12-19 08:08] VITALS: BP 123/72; PULSE 89; RESP 16; TEMP 36.7; O2SAT 98; BMI 41.4
--- NOTE | 2021-12-19 09:39 | ED.GENADULT ---
HPI - General Adult General Chief complaint: Vaginal Bleeding Stated complaint: 6 wks preg/Vaginal bleeding Time Seen by Provider: 12/19/21 09:36 Source: patient and family Mode of arrival: ambulatory Limitations: no limitations History of Present Illness HPI narrative: 26-year-old female , 6 week , last night she noticed a right-sided mild lower abdominal cramps when she woke up this morning after she used the bathroom noticed blood on the wiping paper, no massive bleeding, no nausea, no vomiting, no diarrhea, no abdominal pain at this point. Patient was scheduled to have cholecystectomy which was postponeded because her current . Related Data Home Medications Medication Instructions Recorded Confirmed cetirizine 10 mg capsule (All Day 10 mg PO DAILY 02/17/20 12/06/21 Allergy (cetirizine)) [id number] 3-fat com #1 27 cap PO 12/03/21 12/06/21 mg-1 mg-300 mg capsule Previous Rx's Medication Instructions Recorded albuterol sulfate 90 mcg/actuation 2 puff inhalation Q6H #8.5 grams 04/27/21 aerosol inhaler montelukast 10 mg tablet 10 mg PO DAILY #90 tabs 08/20/21 ondansetron 4 mg disintegrating 4 mg PO Q8H PRN nausea and 09/11/21 tablet vomiting #10 tabs omeprazole 40 mg capsule,delayed 40 mg PO DAILY 90 days #90 caps 11/18/21 release doxylamine succinate 25 mg tablet 25 mg PO BEDTIME 30 days #30 tabs 12/16/21 (Unisom (doxylamine)) pyridoxine (vitamin B6) 25 mg 25 mg PO TID 30 days #90 tabs 12/16/21 tablet Allergies Allergy/AdvReac Type Severity Reaction Status Date / Time amoxicillin [AMOXICILLIN] Allergy Unknown RASH, hives Verified 12/06/21 11:00 azithromycin [AZITHROMYCIN] AdvReac Unknown N/V/D Verified 12/06/21 11:00 Review of Systems Review of Systems: All other systems are reviewed and are negative Constitutional: Reports as per HPI and Reports no additional constitutional complaints Eyes: Reports as per HPI and Reports no additional eye complaints Reports system reviewed and no additional complaints, except as documented Cardiovascular: Reports as per HPI and Reports no additional cardiovascular complaints Respiratory: Reports as per HPI and Reports no additional respiratory complaints Gastrointestinal: Reports as per HPI and Reports no additional gastrointestinal complaints Genitourinary: Reports no additional female genitourinary complaints Musculoskeletal: Reports no additional musculoskeletal complaints Skin/Breast: Reports system reviewed and no additional complaints, except as docu Psychiatric: Reports no additional psychiatric complaints Endocrine: Reports no additional endocrine complaints Hematologic/Lymphatic: Reports no additional hematologic/lymphatic complaints Allergic/Immunologic: Reports no additional allergic/immunologic complaints Reports system reviewed and no additional complaints, except as documented and Reports Abnormal speech present [facility] Past Medical History Medical History Allergic rhinitis Chronic GERD COVID-19 long hauler manifesting chronic dyspnea Dyslipidemia Dysmenorrhea Epigastric abdominal pain Folliculitis Heartburn symptom History of anal fissures Impaired fasting glucose Mild intermittent asthma Obesity (BMI 30-39.9) Plantar wart Vitamin D deficiency Surgical History History of wisdom tooth extraction Hx of colonoscopy Family History Family History Father Depression CVD (cardiovascular disease) Myocardial infarction Mental health disorder Mother Wong syndrome Colon cancer Maternal Grandmother Wong syndrome Colon cancer Dermatomyositis Maternal Grandfather HTN (hypertension) Hypercholesterolemia Brother No problems noted. Social History Social History Housing: Apartment Alcohol intake: current Alcohol intake frequency: holidays/special occasions only Alcohol type: wine Patient Tobacco Use Status: Never used Tobacco e-Cigarette/Vaping Use: Never Used Substance Use Type: Marijuana Advance Directives: No Advance Directives Information Provided: Yes Current occupational status: employed Gender identity: Female Physical Exam ED Vital Signs: Vital Signs - 24 hr 12/19/21 08:08 Temperature 98.0 F Pulse Rate 89 Respiratory Rate 16 Blood Pressure 123/72 Pulse Oximetry 98 Oxygen Delivery Method Room Air BMI result Body Mass Index 41.4 Vital signs have been reviewed as appeared to be correct. Blood pressure normal. Heart rate normal. Respiration rate normal. Temperature normal. Oxygen saturation normal. Appearance: Alert. Oriented X3. No acute distress. Head: Normal external exam. Normocephalic. Atraumatic. No Elam signs noted. No raccoon eyes noted Eyes: PERRLA. EOMI. Conjunctiva and sclera normal. Eyelids normal. ENT: TM's Normal. Pharynx normal. Uvula midline. Moist mucous membranes. No trismus noted. No drooling noted. No muffled voice noted. Neck: Normal inspection. Neck supple. FROM. No adenopathy. Thyroid Normal. No meningeal signs. No neck mass noted. CVS: Normal heart rate and rhythm. Heart sound normal. No murmurs noted. Pulses normal throughout. Respiratory: No respiratory distress. Painless inspiration. Breath sounds normal. No wheezes/rales/rhonchi noted. Chest nontender. No accessory muscle usage noted or decreased air movement noted. Abdomen: Soft and nontender. Bowel sounds normal in all 4 quadrants. No distention noted. No organomegaly noted. No visible injury noted. Back: No CVA tenderness. Full range of motion noted. Skin: Skin warm and dry. Normal skin color. Normal skin turgor. No rashes/lesions/lacerations noted. Extremities: No lower extremity edema. Extremities exhibit normal range of motion. Extremities nontender. Neuro: Oriented X 3. Cranial nerve exam: II-XII are grossly intact No motor deficit. No sensory deficit. Reflexes normal. Course Course Course Narrative: 26-year-old female 6 weeks came in for mild vaginal bleeding with mild cramps, patient's symptoms improved patient went to the bathroom no marked visible vaginal bleeding, serum hCG has been rising, ultrasound showing a single life intrauterine with no concerns, labs unremarkable, patient is whole Rh positive. Medical Decision Making Medical Records Medical records reviewed: Yes I reviewed the patient's medical records. Lab Data Lab results reviewed: Yes I reviewed the patient's lab results. Result diagrams: 12/19/21 10:18 12/19/21 10:18 Labs: Lab Results 12/19/21 12/19/21 12/19/21 Range/Units 10:18 10:18 10:18 WBC 7.7 (4.8-10.8) X10*3/uL RBC 4.46 (4.20-5.50) X10*6/uL Hgb 13.1 (12.0-16.0) g/dl Hct 38.6 (37.0-47.0) % MCV 86.5 (80.0-98.0) fL MCH 29.4 (27.0-33.0) pg MCHC 33.9 (31.0-35.0) g/dl RDW 13.2 (11.0-16.0) % Plt Count 278 (160-400) X10*3/uL MPV 9.7 (9.4-12.3) fL Immature Gran % (Auto) 0.3 (0.0-0.4) % Neut % (Auto) 69.5 (45-73) % Lymph % (Auto) 19.6 L (20-40) % [place] % (Auto) 9.9 (2-11) % Eos % (Auto) 0.4 (0-4) % Baso % (Auto) 0.3 (0-2) % Lymph # (Auto) 1.5 (1.2-4.9) X10*3/uL [place] # (Auto) 0.8 (0.1-1.2) X10*3/uL Eos # (Auto) 0.0 (0.0-0.4) X10*3/uL Baso # (Auto) 0.0 (0.0-0.2) X10*3/uL Abs Immat Gran (auto) 0.02 (0.00-0.03) X10*3/uL Absolute Neuts (auto) 5.4 (2.0-8.3) x10*3/uL Absolute Nucleated RBC 0.000 (0.0-0.012) X10*3/uL Nucleated RBC % (auto) 0.0 (0.0-0.2) /100WBC Sodium 138 (135-145) mmol/L Potassium 3.8 (3.3-5.1) mmol/L Chloride 102 (96-108) mmol/L Carbon Dioxide 25 (22-29) mmol/L Anion Gap 15 (12-20) BUN 7 L D (9-16) mg/dL Creatinine 0.72 (0.5-1.4) mg/dL Estim Creat Clear Calc 138.1 Estimated GFR > 60 Random Glucose 95 (60-115) mg/dL Calcium 9.0 (8.4-10.2) mg/dL Total Bilirubin 0.4 (0.0-1.0) mg/dL Direct Bilirubin 0.2 (0.0-0.5) mg/dL AST 30 D (5-31) U/L ALT 46 H (0-31) U/L Alkaline Phosphatase 59 (39-117) U/L Total Protein 7.2 (6.5-8.0) g/dL Albumin 4.2 (3.5-5.0) g/dL Lipase 12 (8-78) U/L Beta HCG, Quant 37733 mIU/mL Urine Color Urine Appearance Urine pH (5.0-9.0) Ur Specific [place] (1.005-1.025) Urine Protein (Neg-Trace) mg/dL Urine Glucose (UA) (Negative) mg/dL Urine Ketones (Negative) mg/dL Urine Blood (Negative) Urine Nitrite (Negative) Ur Leukocyte Esterase (Negative) Urine RBC (0-2) /HPF Urine WBC (0-5) /HPF Ur Squamous Epith Cells (0-2) /HPF Urine Bacteria (None Seen) Hyaline Casts (0-2) /LPF Urine Test (NEGATIVE) Blood Type O Positive 12/19/21 12/19/21 Range/Units 10:18 10:18 WBC (4.8-10.8) X10*3/uL RBC (4.20-5.50) X10*6/uL Hgb (12.0-16.0) g/dl Hct (37.0-47.0) % MCV (80.0-98.0) fL MCH (27.0-33.0) pg MCHC (31.0-35.0) g/dl RDW (11.0-16.0) % Plt Count (160-400) X10*3/uL MPV (9.4-12.3) fL Immature Gran % (Auto) (0.0-0.4) % Neut % (Auto) (45-73) % Lymph % (Auto) (20-40) % [place] % (Auto) (2-11) % Eos % (Auto) (0-4) % Baso % (Auto) (0-2) % Lymph # (Auto) (1.2-4.9) X10*3/uL [place] # (Auto) (0.1-1.2) X10*3/uL Eos # (Auto) (0.0-0.4) X10*3/uL Baso # (Auto) (0.0-0.2) X10*3/uL Abs Immat Gran (auto) (0.00-0.03) X10*3/uL Absolute Neuts (auto) (2.0-8.3) x10*3/uL Absolute Nucleated RBC (0.0-0.012) X10*3/uL Nucleated RBC % (auto) (0.0-0.2) /100WBC Sodium (135-145) mmol/L Potassium (3.3-5.1) mmol/L Chloride (96-108) mmol/L Carbon Dioxide (22-29) mmol/L Anion Gap (12-20) BUN (9-16) mg/dL Creatinine (0.5-1.4) mg/dL Estim Creat Clear Calc Estimated GFR Random Glucose (60-115) mg/dL Calcium (8.4-10.2) mg/dL Total Bilirubin (0.0-1.0) mg/dL Direct Bilirubin (0.0-0.5) mg/dL AST (5-31) U/L ALT (0-31) U/L Alkaline Phosphatase (39-117) U/L Total Protein (6.5-8.0) g/dL Albumin (3.5-5.0) g/dL Lipase (8-78) U/L Beta HCG, Quant mIU/mL Urine Color Dark Yellow Urine Appearance Cloudy Urine pH 6.0 (5.0-9.0) Ur Specific [place] >= 1.030 H (1.005-1.025) Urine Protein Trace (Neg-Trace) mg/dL Urine Glucose (UA) Negative (Negative) mg/dL Urine Ketones 40 (Negative) mg/dL Urine Blood Small (1+) H (Negative) Urine Nitrite Negative (Negative) Ur Leukocyte Esterase Trace H (Negative) Urine RBC 6-10 H (0-2) /HPF Urine WBC 0-5 (0-5) /HPF Ur Squamous Epith Cells 11-20 (0-2) /HPF Urine Bacteria Trace (None Seen) Hyaline Casts 3-5 (0-2) /LPF Urine Test POSITIVE H (NEGATIVE) Blood Type Imaging Data Pelvic ultrasound.: Attestation: I personally reviewed and interpreted this imaging study as follows: Radiologist's impression: 1. Single intrauterine gestation with ultrasound gestational age of? 6 weeks 1 day +/- 4 days. 2. Estimated date of delivery is August 13, 2022 +/- 4 days. 3. No evidence of maternal adnexal mass or pelvic ascites. Discharge Plan Discharge Clinical Impression: Threatened in first trimester Patient Disposition: Home, Self-Care Instructions: Threatened Miscarriage (ED) Prescriptions: No Action montelukast 10 mg tablet 10 mg PO DAILY Qty: 90 3RF omeprazole 40 mg capsule,delayed release(DR/EC) 40 mg PO DAILY 90 Days Qty: 90 0RF pyridoxine (vitamin B6) 25 mg tablet 25 mg PO TID 30 Days Qty: 90 1RF Unisom (doxylamine) 25 mg tablet 25 mg PO BEDTIME 30 Days Qty: 30 3RF ondansetron 4 mg tablet,disintegrating 4 mg PO Q8H PRN (Reason: nausea and vomiting) Qty: 10 0RF All Day Allergy (cetirizine) 10 mg capsule 10 mg PO DAILY albuterol sulfate 90 mcg/actuation HFA aerosol inhaler 2 puff inhalation Q6H Qty: 8.5 1RF [id number] 3-fat com #1 27-1-300 mg capsule PO Referrals: Eugenie Franco MD [Primary Care Provider] -
[2021-12-19] MEDS: 0.9 % Sodium Chloride 1,000 ML 999 ML IV (10:22)
[2021-12-19 10:27] LABS: MANUAL DIFF FLAG NO
[2021-12-19 10:30] LABS: Appearance Urine Cloudy; Color Urine Dark Yellow; Glucose Urine UA Negative (Negative); Leukocyte Esterase Urine Trace (Negative); Nitrite Urine Negative (Negative); Specific Gravity - Urine >= 1.030 (1.005-1.025); Urine Blood Small (1+) (Negative); Urine Ketones 40 mg/dL (Negative); Urine Protein Trace mg/dL (Neg-Trace)
[2021-12-19 10:32] LABS: UPreg QC Valid YES; Urine Pregnancy POSITIVE (NEGATIVE)
[2021-12-19 10:34] LABS: Bacteria Urine Trace (None Seen); WBC Urine 0-5 /HPF (0-5)
--- NOTE | 2021-12-19 10:36 | PC.NURSE ---
Pt A&Ox4, no pain at this time, OOB to BR independently, brown blood with wiping per patient. This AM had wiped after urination and BRB x 2 wipes, no pad needed. , approx 6 weeks . Call galeana within reach, IV established labs sent, awaiting US at this time. Will continue to monitor.
[2021-12-19 10:39] LABS: Basophils Percent Auto 0.3 % (0-2); Eosinophils Percent Auto 0.4 % (0-4); Hematocrit 38.6 % (37.0-47.0); Hemoglobin 13.1 g/dl (12.0-16.0); Imm Gran Abs Auto 0.02 X10*3/uL (0.00-0.03); Imm Gran Pct Auto 0.3 % (0.0-0.4); Lymphocytes Absolute Auto 1.5 X10*3/uL (1.2-4.9); Lymphocytes Percent Auto 19.6 % (20-40); Mean Corpuscular HGB Conc 33.9 g/dl (31.0-35.0); Mean Corpuscular Hemoglobin 29.4 pg (27.0-33.0); Mean Corpuscular Volume 86.5 fL (80.0-98.0); Mean Platelet Volume 9.7 fL (9.4-12.3); Monocytes Absolute Auto 0.8 X10*3/uL (0.1-1.2); Monocytes Percent Auto 9.9 % (2-11); Neutrophils Absolute Auto 5.4 x10*3/uL (2.0-8.3); Neutrophils Percent Auto 69.5 % (45-73); Platelet Count 278 X10*3/uL (160-400); Red Blood Count 4.46 X10*6/uL (4.20-5.50); Red Cell Distribution Width 13.2 % (11.0-16.0); White Blood Count 7.7 X10*3/uL (4.8-10.8)
[2021-12-19 10:53] LABS: Alanine Aminotransferase 46 U/L (0-31); Albumin Level 4.2 g/dL (3.5-5.0); Alkaline Phosphatase 59 U/L (39-117); Anion Gap 15 (12-20); Aspartate Amino Transferase 30 U/L (5-31); Bilirubin Direct 0.2 mg/dL (0.0-0.5); Bilirubin Total 0.4 mg/dL (0.0-1.0); Blood Urea Nitrogen 7 mg/dL (9-16); Carbon Dioxide 25 mmol/L (22-29); Chloride 102 mmol/L (96-108); Creatinine Clr Calc Pharmacy 138.1; Estimated Glomerular Filt Rate > 60; Glucose Random 95 mg/dL (60-115); Lipase 12 U/L (8-78); Potassium 3.8 mmol/L (3.3-5.1); Sodium 138 mmol/L (135-145); Total Protein 7.2 g/dL (6.5-8.0)
[2021-12-19 11:29] LABS: HCG Quantitative 45458 mIU/mL
== END 2021-12-19 13:21 | disposition home or self-care (01) ==
PROVIDERS: Emergency Provider Emergency Medicine; PCP Internal Medicine
DX: O20.0 Threatened abortion (principal); Z3A.16 16 weeks gestation of pregnancy; Z79.899 Other long term (current) drug therapy
CPT/HCPCS: 36415; 76801; 76817; 80048; 80076; 81001; 81025; 83690; 84702; 85025; 86900; 86901; 99284

== ENCOUNTER 2021-12-24 10:43 | Outpatient (REF) | payer OTHER, SELFPAY | END 2021-12-24 10:44 | disposition home or self-care (01) | LOC: HO.US 10:43 | PROVIDERS: Visit Provider Advanced Practice Midwife | DX: Z13.89 Encounter for screening for other disorder (principal) ==

== ENCOUNTER → 2022-01-05 11:08 | Outpatient (BNVA) | payer OTHER, SELFPAY | PROVIDERS: PCP Internal Medicine; Referring Provider Internal Medicine; Visit Provider Nurse Practitioner | DX: R19.7 Diarrhea, unspecified (principal); K21.9 Gastro-esophageal reflux disease without esophagitis; K80.20 Calculus of gallbladder without cholecystitis without obstruction; E66.01 Morbid (severe) obesity due to excess calories; Z68.41 Body mass index [BMI] 40.0-44.9, adult | CPT/HCPCS: 99212 ==

== ENCOUNTER 2022-01-13 12:43 | Outpatient (REF) | payer OTHER, SELFPAY ==
[2022-01-13 13:31] LABS: Influenza A PCR NEGATIVE (Negative); Influenza B PCR NEGATIVE (Negative); Resp Syncy Virus RNA Qual PCR NEGATIVE (Negative); SARS COV2 PCR INHOUSE NEGATIVE (Negative)
== END 2022-01-13 12:44 | disposition home or self-care (01) ==
LOC: HO.LNP 12:43
PROVIDERS: Visit Provider Internal Medicine
DX: Z20.822 Contact with and (suspected) exposure to COVID-19 (principal); R09.89 Other specified symptoms and signs involving the circulatory and respiratory systems
CPT/HCPCS: 0241U

== ENCOUNTER → 2022-01-21 14:18 | Outpatient (BNVA) | payer OTHER, SELFPAY | PROVIDERS: PCP Internal Medicine; Referring Provider Surgery; Visit Provider Dietitian, Registered | DX: E66.01 Morbid (severe) obesity due to excess calories (principal); R73.01 Impaired fasting glucose | CPT/HCPCS: 97802 ==

== ENCOUNTER → 2022-02-01 14:07 | Outpatient (BNVA) | payer OTHER, SELFPAY | PROVIDERS: PCP Internal Medicine; Visit Provider Surgery | DX: O99.611 Diseases of the digestive system complicating pregnancy, first trimester (principal); K80.20 Calculus of gallbladder without cholecystitis without obstruction; O21.9 Vomiting of pregnancy, unspecified; O99.511 Diseases of the respiratory system complicating pregnancy, first trimester; J45.909 Unspecified asthma, uncomplicated; O99.211 Obesity complicating pregnancy, first trimester; E66.01 Morbid (severe) obesity due to excess calories; Z3A.12 12 weeks gestation of pregnancy | CPT/HCPCS: 99212 ==

== ENCOUNTER → 2022-05-17 13:52 | Outpatient (BNVA) | payer OTHER, SELFPAY | PROVIDERS: PCP Internal Medicine; Visit Provider Surgery | DX: O99.619 Diseases of the digestive system complicating pregnancy, unspecified trimester (principal); K80.20 Calculus of gallbladder without cholecystitis without obstruction; O99.210 Obesity complicating pregnancy, unspecified trimester; E66.01 Morbid (severe) obesity due to excess calories; Z3A.00 Weeks of gestation of pregnancy not specified | CPT/HCPCS: 99212 ==

== ENCOUNTER → 2022-09-23 13:53 | Outpatient (BNVA) | payer OTHER, SELFPAY | PROVIDERS: PCP Internal Medicine; Visit Provider Surgery | DX: K80.50 Calculus of bile duct without cholangitis or cholecystitis without obstruction (principal); K80.20 Calculus of gallbladder without cholecystitis without obstruction; J45.909 Unspecified asthma, uncomplicated; E66.01 Morbid (severe) obesity due to excess calories; Z68.41 Body mass index [BMI] 40.0-44.9, adult | CPT/HCPCS: 99212 ==

== ENCOUNTER 2022-10-02 05:04 | Emergency (ER) | payer OTHER, SELFPAY ==
--- NOTE | ~2022-10-02 | US_ITS ---
EXAMINATION: US ABDOMEN LIMITED CLINICAL INFORMATION: Right upper quadrant pain. COMPARISON: Multiple priors, most recent abdominal ultrasound dated 10/24/2021. TECHNIQUE: Real-time imaging of the right upper quadrant abdominal viscera. FINDINGS: GALLBLADDER: Multiple dependent gallstones. No gallbladder wall thickening or pericholecystic free fluid to suggest acute cholecystitis. The patient experienced right upper quadrant tenderness during the examination. COMMON BILE DUCT: Normal in caliber measuring 0.2 cm in diameter. FREE FLUID: No right upper quadrant free fluid. US/US abdomen limited IMPRESSION: Redemonstration of cholelithiasis without gallbladder wall thickening or pericholecystic free fluid to suggest acute cholecystitis. Patient experienced right upper quadrant tenderness during examination.
[2022-10-02 05:22] VITALS: BP 128/88; PULSE 79; RESP 16; TEMP 36.6; O2SAT 97; BMI 44.2
--- NOTE | 2022-10-02 05:32 | ECG_ITS ---
Test Reason : ABD PAIN Blood Pressure : / mmHG Vent. Rate : 074 BPM Atrial Rate : 074 BPM P-R Int : 168 ms QRS Dur : 096 ms QT Int : 386 ms P-R-T Axes : 066 012 019 degrees QTc Int : 428 ms Normal sinus rhythm Possible Left atrial enlargement RSR' or QR pattern in V1 suggests right ventricular conduction delay Borderline ECG When compared with ECG of 11-SEP-2021 06:04, No significant change was found Referred By: Generic ED Physician Electronically Signed By:VENU MCKEE
[2022-10-02 06:07] LABS: MANUAL DIFF FLAG NO
[2022-10-02 06:09] LABS: Appearance Urine Clear; Color Urine Yellow; Glucose Urine UA Negative (Negative); Leukocyte Esterase Urine Negative (Negative); Nitrite Urine Negative (Negative); Urine Blood Negative (Negative); Urine Ketones Negative (Negative); Urine Protein Negative (Neg-Trace)
[2022-10-02 06:10] LABS: Basophils Percent Auto 0.4 % (0-2); Eosinophils Absolute Auto 0.3 X10*3/uL (0.0-0.4); Eosinophils Percent Auto 3.1 % (0-4); Hematocrit 41.4 % (37.0-47.0); Hemoglobin 13.3 g/dl (12.0-16.0); Imm Gran Abs Auto 0.02 X10*3/uL (0.00-0.03); Imm Gran Pct Auto 0.2 % (0.0-0.4); Lymphocytes Absolute Auto 2.8 X10*3/uL (1.2-4.9); Lymphocytes Percent Auto 34.3 % (20-40); Mean Corpuscular HGB Conc 32.1 g/dl (31.0-35.0); Mean Corpuscular Volume 87.2 fL (80.0-98.0); Monocytes Absolute Auto 0.6 X10*3/uL (0.1-1.2); Monocytes Percent Auto 7.6 % (2-11); Neutrophils Absolute Auto 4.4 x10*3/uL (2.0-8.3); Neutrophils Percent Auto 54.4 % (45-73); Platelet Count 282 X10*3/uL (160-400); Red Blood Count 4.75 X10*6/uL (4.20-5.50); UPreg QC Valid YES; Urine Pregnancy NEGATIVE (NEGATIVE); White Blood Count 8.1 X10*3/uL (4.8-10.8)
[2022-10-02 06:18] LABS: Anion Gap 14 (12-20); Blood Urea Nitrogen 15 mg/dL (9-16); Calcium 9.8 mg/dL (8.4-10.2); Carbon Dioxide 24 mmol/L (22-29); Chloride 109 mmol/L (96-108); Creatinine Clr Calc Pharmacy 144.2; Estimated Glomerular Filt Rate > 60; Glucose Random 90 mg/dL (60-115); Lipase 30 U/L (8-78); Potassium 3.8 mmol/L (3.3-5.1); Sodium 143 mmol/L (135-145)
--- NOTE | 2022-10-02 06:32 | ED.GENADULT ---
HPI - General Adult General Chief complaint: Abdominal Pain Stated complaint: Abd pain Time Seen by Provider: 10/02/22 06:31 Source: patient Mode of arrival: ambulatory Limitations: no limitations History of Present Illness HPI narrative: Patient is a 27 year old assigned female at with a history of asthma and gallbladder disease presenting to the emergency department today with right upper quadrant abdominal pain. Patient states that she has been having gallbladder issues since September of 2021 however, due to , her gallbladder removal was delayed. Patient states that she has an appointment with Dr. Vickers, the general surgeon, to have her gallbladder removed next month. Patient states that the pain became much worse today. Patient denies any dizziness, lightheadedness, nausea, vomiting, fever, chills, blurry vision, double vision, loss of vision, chest pain, difficulty breathing, shortness of breath, back pain, night sweats, pain with urination, increased urinary frequency, increased urinary urgency, blood in her urine or stool, syncope or a near syncopal episode, recent trauma or falls, bowel incontinence, bladder incontinence, bowel retention, bladder retention, or any other complaints at this time. Location: abdomen Severity: mild Severity scale (1-10): 4 Quality: aching and dull Pain Consistency: constant Relieving factors: none Exacerbating factors: none Associated symptoms: denies other symptoms Treatments prior to arrival: none Related Data Home Medications Medication Instructions Recorded Confirmed cetirizine 10 mg capsule (All Day 10 mg PO DAILY 02/17/20 05/17/22 Allergy (cetirizine)) [id number] 3-fat com #1 27 cap PO 12/03/21 05/17/22 mg-1 mg-300 mg capsule acetaminophen 500 mg tablet 500 mg PO Q6H PRN 01/13/22 05/17/22 (Tylenol Extra Strength) Previous Rx's Medication Instructions Recorded albuterol sulfate 90 mcg/actuation 2 puff inhalation Q6H #8.5 grams 04/27/21 aerosol inhaler omeprazole 40 mg capsule,delayed 40 mg PO DAILY 90 days #90 caps 04/27/22 release montelukast 10 mg tablet 10 mg PO DAILY #90 tabs 08/19/22 Allergies Allergy/AdvReac Type Severity Reaction Status Date / Time amoxicillin [AMOXICILLIN] Allergy Unknown RASH, hives Verified 05/17/22 13:58 azithromycin [AZITHROMYCIN] AdvReac Unknown N/V/D Verified 05/17/22 13:58 Review of Systems Constitutional: Constitutional: Reports no additional constitutional complaints, Denies chills, Denies fever(s) and Denies night sweats Eyes: Eyes: Reports no additional eye complaints, Denies blurry vision, Denies change in vision, Denies diplopia, Denies eye discharge, Denies loss of vision and Denies eye pain ENT: Denies dizziness Cardiovascular: Cardiovascular: Reports no additional cardiovascular complaints, Denies chest pain, Denies lightheadedness, Denies Loss of Consciousness and Denies dyspnea Respiratory: Respiratory: Reports no additional respiratory complaints and Denies dyspnea Gastrointestinal: Gastrointestinal: Reports no additional gastrointestinal complaints, Reports abdominal pain, Denies melena, Denies hematochezia, Denies change in bowel habits and Denies change in stool character Genitourinary: Genitourinary: Denies hematuria, Denies urinary frequency, Denies dysuria, Denies urinary incontinence, Denies urinary hesitancy and Denies urinary urgency Musculoskeletal: Musculoskeletal: Reports no additional musculoskeletal complaints, Denies numbness and Denies tingling Neurologic: Denies dizziness, Denies loss of vision, Denies numbness and Denies tingling Psychiatric: Psychiatric: Reports no additional psychiatric complaints Endocrine: Endocrine: Reports no additional endocrine complaints Hematologic/Lymphatic: Hematologic/Lymphatic: Reports no additional hematologic/lymphatic complaints Allergic/Immunologic: Allergic/Immunologic: Reports no additional allergic/immunologic complaints [facility] Past Medical History Attestation statement: The following information was validated with the patient. Source: old records reviewed and nursing notes reviewed Medical History Allergic rhinitis Chronic GERD COVID-19 long hauler manifesting chronic dyspnea Dyslipidemia Dysmenorrhea Epigastric abdominal pain Folliculitis Heartburn symptom History of anal fissures Impaired fasting glucose Mild intermittent asthma Obesity (BMI 30-39.9) Plantar wart Vitamin D deficiency Surgical History History of wisdom tooth extraction Hx of colonoscopy Family History Family History Father Depression CVD (cardiovascular disease) Myocardial infarction Mental health disorder Mother Wong syndrome Colon cancer Maternal Grandmother Wong syndrome Colon cancer Dermatomyositis Maternal Grandfather HTN (hypertension) Hypercholesterolemia Brother No problems noted. Social History Social History Housing: Apartment Alcohol intake: current Alcohol intake frequency: holidays/special occasions only Alcohol type: wine Patient Tobacco Use Status: Never used Tobacco e-Cigarette/Vaping Use: Never Used Substance Use Type: Marijuana Advance Directives: No Advance Directives Information Provided: Yes Current occupational status: employed Gender identity: Female Physical Exam ED Vital Signs: Vital Signs - 24 hr 10/02/22 05:22 10/02/22 08:09 10/02/22 09:51 Temperature 97.9 F 97.9 F Pulse Rate 79 66 71 Respiratory Rate 16 14 16 Blood Pressure 128/88 141/77 H 142/87 H Pulse Oximetry 97 97 98 Oxygen Delivery Method Room Air Room Air Room Air BMI result Body Mass Index 44.2 Const General: cooperative, no acute distress, alert and awake Nutritional Appearance: well nourished Orientation/consciousness: patient oriented x3 Limitations: no limitations HENMT Head: Yes normal to inspection and Yes atraumatic Ears: hearing grossly normal bilaterally and external ears normal General nose exam: Normal external nose present, no nasal discharge noted and no epistaxis Face and sinus: Yes normal facial exam, No abrasion and No laceration Mouth: Normal oral and palatal mucosa present, no drooling and no muffled voice Eyes General: appearance normal, both eyes and all related structures Periorbital: periorbital findings normal Eyelids: Yes eyelids normal Conjunctivae: conjunctivae normal Pupils: Equal, round and reactive pupils present EOM: EOMs intact bilaterally Neck Neck: Yes normal visual inspection, Yes full ROM and Yes no lymphadenopathy Chest Chest palpation & inspection: normal inspection of the chest Resp Effort & Inspection: normal respiratory effort and able to speak in complete sentences Auscultation: clear to auscultation bilaterally Cardio Rate: regular rate Rhythm: regular rhythm GI Inspection: Yes normal to inspection Palpation (GI): Soft to palpation, not firm, nontender and no guarding Neuro General: patient oriented x3 and moves all extremities Cranial nerves: Yes Equal, round and reactive pupils present Cognition (Neuro): normal cognition Motor exam (neuro): 5/5 motor strength present throughout Sensory Exam: Normal double simultaneous stimulation for sensation Coordination: [id number] test normal Extrem General: Yes normal to inspection, Yes full ROM and Yes capillary refill normal Psych Appearance: grossly normal Mental Status: mental status grossly normal Affect: normal affect Attitude: cooperative Thought process: Normal thought process present Thought content: Normal thought content present Insight: Good insight present (Psych) Medications Administered Discontinued Medications Generic Name Dose Route Start Last Admin Trade Name Razia PRN Reason Stop Dose Admin Ketorolac Tromethamine 15 mg 10/02/22 06:55 10/02/22 07:34 Ketorolac Tromethamine 15 Mg/Ml Vial IM 10/02/22 06:56 15 mg ONCE ONE Administration Oxycodone HCl 10 mg 10/02/22 08:40 10/02/22 09:22 Oxycodone Hcl Immed Release 5 Mg Tablet PO 10/02/22 08:41 10 mg ONCE ONE Administration Medical Decision Making Medical Decision Making [facility] Narrative: Patient is a 27 year old assigned female at with a history of gallbladder disease presenting to the emergency department today with right upper quadrant abdominal pain. Patient's physical exam was as noted in the physical exam portion of this chart. Patient's blood work was unremarkable. Patient's abdominal US showed gallstones but no evidence of cholecystitis. I spoke with the general surgery team who recommended discharge given the patient's pain was under control. I explained my physical exam findings as well as all test results to the patient. I answered all questions asked by the patient. Patient received IM Toradol and PO Oxycodone which she stated helped her pain significantly. I stressed the importance of the patient taking her medication as prescribed. I stressed the importance of the patient following up with her primary care provider and her general surgeon. I stressed the importance of the patient returning to the emergency department immediately if her symptoms were to worsen or if she were to develop any dizziness, shortness of breath, difficulty breathing, chest pain, blurry vision, loss of vision, nausea, vomiting, abdominal pain, fever, chills, back pain, or any other complaints. Patient verbalized agreement and understanding with this treatment plan and discharge. Differential Diagnosis Differential Diagnoses: The differential diagnosis associated with the presentation includes cholecystitis, bilary colic, cholangitis, biliary sludge, gallstones, abdominal pain Admission/Observation Consideration of admission/observation: Escalation of care including admission/observation considered Patient would have been admitted to the hospital had her work up had any findings where hospital admission was appropriate and her clinical presentation warranted hospital admission. Consult Healthcare Provider Management of the patient was discussed with: [employer] (spoke with the general surgeon team as noted in the MDM portion of this chart. ) Lab Data [facility] Lab Attestation statement: I reviewed the patient's lab results. My interpretation of these studies and their corresponding values is that they are grossly normal. 10/02/22 05:43 10/02/22 05:43 Labs: Lab Results 10/02/22 10/02/22 10/02/22 Range/Units 05:43 05:43 05:43 WBC 8.1 (4.8-10.8) X10*3/uL RBC 4.75 (4.20-5.50) X10*6/uL Hgb 13.3 (12.0-16.0) g/dl Hct 41.4 (37.0-47.0) % MCV 87.2 (80.0-98.0) fL MCH 28.0 (27.0-33.0) pg MCHC 32.1 (31.0-35.0) g/dl RDW 13.0 (11.0-16.0) % Plt Count 282 (160-400) X10*3/uL MPV 10.0 (9.4-12.3) fL Immature Gran % (Auto) 0.2 (0.0-0.4) % Neut % (Auto) 54.4 (45-73) % Lymph % (Auto) 34.3 (20-40) % [place] % (Auto) 7.6 (2-11) % Eos % (Auto) 3.1 (0-4) % Baso % (Auto) 0.4 (0-2) % Lymph # (Auto) 2.8 (1.2-4.9) X10*3/uL [place] # (Auto) 0.6 (0.1-1.2) X10*3/uL Eos # (Auto) 0.3 (0.0-0.4) X10*3/uL Baso # (Auto) 0.0 (0.0-0.2) X10*3/uL Abs Immat Gran (auto) 0.02 (0.00-0.03) X10*3/uL Absolute Neuts (auto) 4.4 (2.0-8.3) x10*3/uL Absolute Nucleated RBC 0.000 (0.0-0.012) X10*3/uL Nucleated RBC % (auto) 0.0 (0.0-0.2) /100WBC Sodium 143 (135-145) mmol/L Potassium 3.8 (3.3-5.1) mmol/L Chloride 109 H (96-108) mmol/L Carbon Dioxide 24 (22-29) mmol/L Anion Gap 14 (12-20) BUN 15 (9-16) mg/dL Creatinine 0.71 (0.5-1.4) mg/dL Estim Creat Clear Calc 144.2 Estimated GFR > 60 Random Glucose 90 (60-115) mg/dL Calcium 9.8 D (8.4-10.2) mg/dL Lipase 30 (8-78) U/L Urine Color Yellow Urine Appearance Clear Urine pH 6.0 (5.0-9.0) Ur Specific [place] 1.020 (1.005-1.025) Urine Protein Negative (Neg-Trace) mg/dL Urine Glucose (UA) Negative (Negative) mg/dL Urine Ketones Negative (Negative) mg/dL Urine Blood Negative (Negative) Urine Nitrite Negative (Negative) Ur Leukocyte Esterase Negative (Negative) Urine Test (NEGATIVE) 10/02/22 Range/Units 05:43 WBC (4.8-10.8) X10*3/uL RBC (4.20-5.50) X10*6/uL Hgb (12.0-16.0) g/dl Hct (37.0-47.0) % MCV (80.0-98.0) fL MCH (27.0-33.0) pg MCHC (31.0-35.0) g/dl RDW (11.0-16.0) % Plt Count (160-400) X10*3/uL MPV (9.4-12.3) fL Immature Gran % (Auto) (0.0-0.4) % Neut % (Auto) (45-73) % Lymph % (Auto) (20-40) % [place] % (Auto) (2-11) % Eos % (Auto) (0-4) % Baso % (Auto) (0-2) % Lymph # (Auto) (1.2-4.9) X10*3/uL [place] # (Auto) (0.1-1.2) X10*3/uL Eos # (Auto) (0.0-0.4) X10*3/uL Baso # (Auto) (0.0-0.2) X10*3/uL Abs Immat Gran (auto) (0.00-0.03) X10*3/uL Absolute Neuts (auto) (2.0-8.3) x10*3/uL Absolute Nucleated RBC (0.0-0.012) X10*3/uL Nucleated RBC % (auto) (0.0-0.2) /100WBC Sodium (135-145) mmol/L Potassium (3.3-5.1) mmol/L Chloride (96-108) mmol/L Carbon Dioxide (22-29) mmol/L Anion Gap (12-20) BUN (9-16) mg/dL Creatinine (0.5-1.4) mg/dL Estim Creat Clear Calc Estimated GFR Random Glucose (60-115) mg/dL Calcium (8.4-10.2) mg/dL Lipase (8-78) U/L Urine Color Urine Appearance Urine pH (5.0-9.0) Ur Specific [place] (1.005-1.025) Urine Protein (Neg-Trace) mg/dL Urine Glucose (UA) (Negative) mg/dL Urine Ketones (Negative) mg/dL Urine Blood (Negative) Urine Nitrite (Negative) Ur Leukocyte Esterase (Negative) Urine Test NEGATIVE (NEGATIVE) Independent Interpretation I performed an independent interpretation of an: Ultrasound Interpretation: My interpretation is in agreement with the radiologist's impression of this imaging study. EXAMINATION: US ABDOMEN LIMITED CLINICAL INFORMATION: Right upper quadrant pain. COMPARISON: Multiple priors, most recent abdominal ultrasound dated 10/24/2021. TECHNIQUE: Real-time imaging of the right upper quadrant abdominal viscera. FINDINGS: GALLBLADDER: Multiple dependent gallstones. No gallbladder wall thickening or pericholecystic free fluid to suggest acute cholecystitis. The patient experienced right upper quadrant tenderness during the examination. COMMON BILE DUCT: Normal in caliber measuring 0.2 cm in diameter. FREE FLUID: No right upper quadrant free fluid. US/US abdomen limited IMPRESSION: Redemonstration of cholelithiasis without gallbladder wall thickening or pericholecystic free fluid to suggest acute cholecystitis. Patient experienced right upper quadrant tenderness during examination. Dictated By: Lei Crawford MD Signed By: Electronically signed by Lei Crawford MD 10/02/22 0809 Chronic Conditions Patient?s care impacted by: Other (asthma) Discharge Plan Discharge Clinical Impression: Abdominal pain Patient Disposition: Home, Self-Care Instructions: Abdominal Pain (ED) Additional Instructions: Follow up with your primary care provider and with your general surgeon as scheduled. Return to the emergency department immediately if your symptoms worsen or if you develop any dizziness, shortness of breath, difficulty breathing, chest pain, blurry vision, loss of vision, nausea, vomiting, abdominal pain, fever, chills, back pain, or any other complaints. Prescriptions: No Action omeprazole 40 mg capsule,delayed release(DR/EC) 40 mg PO DAILY 90 Days Qty: 90 2RF montelukast 10 mg tablet 10 mg PO DAILY Qty: 90 1RF All Day Allergy (cetirizine) 10 mg capsule 10 mg PO DAILY acetaminophen [Tylenol Extra Strength] 500 mg tablet 500 mg PO Q6H PRN albuterol sulfate 90 mcg/actuation HFA aerosol inhaler 2 puff inhalation Q6H Qty: 8.5 1RF [id number] 3-fat com #1 27-1-300 mg capsule PO Referrals: [facility] [place] General Surgeons [Provider Group] Eugenie Franco MD [Primary Care Provider] - Stand Alone Forms: Work/School Release Interventions: ED Discharge Assessment Last Done: 10/02/22 09:51 Discharge Date/Time: 10/02/22 09:52 Print Language: Occitan
[2022-10-02] MEDS: Ketorolac Tromethamine 15 MG/ML VIAL IM (07:34)
[2022-10-02 08:09] VITALS: BP 141/77; PULSE 66; RESP 14; TEMP 36.6; O2SAT 97
[2022-10-02] MEDS: oxyCODONE HCl Immed Release 5 MG TABLET 10 MG PO (09:22)
[2022-10-02 09:51] VITALS: BP 142/87; PULSE 71; RESP 16; O2SAT 98
== END 2022-10-02 09:52 | disposition home or self-care (01) ==
PROVIDERS: Emergency Provider Emergency Medicine Emergency Medical Services; PCP Internal Medicine
DX: R10.11 Right upper quadrant pain (principal); R94.31 Abnormal electrocardiogram [ECG] [EKG]; R10.2 Pelvic and perineal pain; Z79.899 Other long term (current) drug therapy
CPT/HCPCS: 36415; 76705; 80048; 81003; 81025; 83690; 85025; 93005; 96372; 99284; 99285; J1885

== ENCOUNTER 2022-10-13 05:54 | Day surgery (SDC) | payer OTHER, SELFPAY ==
[2022-10-07 15:08] VITALS: BMI 43.2
--- NOTE | 2022-10-12 14:05 | MHC.SHP ---
Pre-Procedural Eval Section A Date of Service: 10/12/22 The patient is an INPATIENT: No The History & Physical has been completed within 30 days and I have reviewed it.: Yes Section B Chief Complaint: Calculus of bile duct without cholangitis or juanjo Allergies: Allergies Allergy/AdvReac Type Severity Reaction Status Date / Time amoxicillin [AMOXICILLIN] Allergy Unknown RASH, hives Verified 05/17/22 13:58 azithromycin [AZITHROMYCIN] AdvReac Unknown N/V/D Verified 05/17/22 13:58 Plan I have reviewed the history and physical and performed a pertinent physical examination on my patient. No changes have occurred unless specified. Time Spent With Patient Time: Total time managing care of this patient today ____ minutes.
[2022-10-13] VITALS (17 sets, daily range): BP systolic 114–159; BP diastolic 55–94; PULSE 60–90; RESP 15–20; TEMP 36.1–36.7; O2SAT 95–98; BMI 44.3
--- NOTE | 2022-10-13 06:55 | PC.NURSE ---
Reported to Dr. Vickers via [employer] with photo of purple bumps on left lower quadrant of abdomen. Dr. Hernandez examined at this time, decision to proceed with surgery.
--- NOTE | 2022-10-13 07:03 | W.PM.OPN ---
Operative Note Operative Note Date of Service: 10/13/22 Narrative: Preop diagnosis: [Biliary colic/CCC] Postop diagnosis: [same, RUQ scar tissue, fatty liver, likely hepatomegaly] Procedure: [Laparoscopic cholecystectomy; lysis of adhesions for 35 minutes] Surgeon: Reymundo Vickers MD Assist: [Fransisca Mackenzie RN] Anesthesia: [GET, local: Marcaine, 0.5% with epi] Estimated blood loss: [10cc] Specimen: [Gallbladder with contents] Intraoperative findings: [Extensive right upper quadrant adhesions from the omentum over the liver into the gallbladder; fatty liver disease; critical view of safety demonstrated: Cystic duct, 5-6 mm; cystic artery, 3-4 mm] Indications: [The patient is a 27-year-old woman who is experiencing biliary colic last summer. She had been scheduled for cholecystectomy and presented with an unexpected . During her , the patient had minimal to no symptoms, but after delivery started to develop typical symptoms of biliary colic that would last several hours with radiation to her back. Ultrasound confirmed cholelithiasis last summer. LFTs have been normal. Cholecystectomy was again recommended to the patient and she wished to proceed. I reviewed the option of continued observation and 2nd opinion which was declined. I also reviewed the inherent risks to surgery which include, but are not limited to: Bleeding that could require another operation or blood transfusion, the need for open surgery, the unlikely but possible issue of bile leak that could require an ERCP, the risk of retained common duct stones that could require an ERCP, the risk of common bile duct injury which would require transfer to a larger institution for another operation. Patient seemed to understand her options, declined a inseminator or 2nd opinion and wants to proceed. Instructions regarding diet and activity reviewed and apparently understood. The patient is advised to avoid rich fatty foods postoperatively to avoid GI distress/diarrhea and advised to not lift more than 20 lb for medical reasons to minimize the risk of hernia postoperatively. I recommended that she discuss these restrictions with her employer and that she is not disabled during this time frame but can perform light duty. The patient's questions seemed to be satisfactorily answered.] Procedure: [The patient was identified in preoperative holding and again in the operating room and placed supine on the table. An appropriate time-out was performed and preemptive local used at all trocar insertion sites. I began at the patient's supraumbilical midline and placed a Veress needle through a transverse supraumbilical incision. An appropriate drop test was performed. The needle was connected to high flow and opening pressures were 6 mmHg. A pneumoperitoneum of 15 mmHg was then obtained using carbon dioxide. The Veress needle was then removed and I accessed the patient's abdomen through the supraumbilical midline incision using a 5 mm Optiview trocar and 30 degree/5 mm laparoscopic without incident. Next a a 5 mm epigastric and two 5 mm right subcostal ports were placed with preemptive analgesia under direct laparoscopic vision without incident and the supraumbilical trocar upsized to a 12 mm trocar under direct laparoscopic vision. Diagnostic laparoscopy was performed. The gallbladder was not visible secondary to adhesions from the omentum over the gallbladder and onto the liver. Obvious fatty liver disease and enlarged liver lobes were noted. The gallbladder was carefully grasped by the fundus and retracted and a lysis of adhesions taking 35 minutes to remove the omentum and preserve the bowel was performed. Next, the gallbladder was clearly identified and grasped by its fundus. It was retracted cranially and anteriorly and dissection began in the lateral cystic triangle. The cystic duct was identified at its junction on the gallbladder and dissection carried medially, then circumferentially using the [place] dissector and hook. The cystic artery was then carefully identified and circumferentially dissected. Once dissection of both structures was complete and the critical view of safety demonstrated, the duct and artery were double clipped proximally and once distally and sharply divided. Electrocautery was used to remove the gallbladder from its fossa on the liver. Liver bed was inspected for hemostasis and the clips were noted to be on the respective structures. The gallbladder was placed in an Endo-Catch bag and delivered through the umbilicus under direct laparoscopic vision. The abdomen was again inspected with the laparoscoped and a abdomen deflated to assess for hemostasis. The patient was returned to neutral position, the abdomen deflated and the fascia of the supraumbilical incision closed with interrupted Vicryl sutures. Skin was closed with 4-0 Monocryl subcuticular sutures. Mastisol and Steri-Strips were applied followed by Band-Aids. The patient tolerated the procedure well and was extubated recovered in stable condition. All sponge instrument counts were correct. At the patient's request I spoke to Kwabena, her partner, and apprise him of the operation and post-op plan, activity restrictions, pain management & bowel regeime. Questions seemed to be satisfactorily answered.]
--- NOTE | 2022-10-13 07:18 | HO.ANESPROP2 ---
HPI - Anesthesia Eval Consult details Narrative: 27 F for lap juanjo Morbid obesity PMFSH Active Problems Active Problems: All Active Problems (Updated 10/07/22 @ 15:08 by Soila May RN) Hx of ovarian cyst (Acute) Obesity, morbid, BMI 40.0-49.9 (Acute) Viral illness (Acute) Upper respiratory tract infection (Acute) Miscarriage (Acute) Gallstones (Acute) Epigastric pain (Acute) Sore throat (Acute) Morbid (severe) obesity due to excess calories (Acute) Asthma (Acute) test positive (Acute) Early stage of (Acute) Diarrhea (Acute) Nausea & vomiting (Acute) 10 weeks gestation of (Acute) Gastroenteritis (Acute) Impaired fasting glucose (Acute) Vitamin D deficiency (Acute) COVID-19 long hauler manifesting chronic dyspnea (Acute) Chronic GERD (Acute) Mild intermittent asthma (Acute) Dysmenorrhea (Acute) Allergic rhinitis (Acute) Dyslipidemia (Acute) Past Medical History Medical History (Updated 10/07/22 @ 15:08 by Soila May RN) Allergic rhinitis Chronic GERD COVID-19 long hauler manifesting chronic dyspnea Dyslipidemia Dysmenorrhea Epigastric abdominal pain Folliculitis Heartburn symptom History of anal fissures Impaired fasting glucose Mild intermittent asthma Obesity (BMI 30-39.9) Plantar wart Positive test Vitamin D deficiency Functional capacity: independent ambulation Family History Family History Father Depression CVD (cardiovascular disease) Myocardial infarction Mental health disorder Mother Wong syndrome Colon cancer Maternal Grandmother Wong syndrome Colon cancer Dermatomyositis Maternal Grandfather HTN (hypertension) Hypercholesterolemia Brother No problems noted. Family history of problems with anesthesia: No Surgical History Surgical History History of wisdom tooth extraction Hx of colonoscopy History of Problems with Anesthesia: No Social History Social History Housing: Apartment Alcohol intake: current Alcohol intake frequency: holidays/special occasions only Alcohol type: wine Patient Tobacco Use Status: Never used Tobacco e-Cigarette/Vaping Use: Never Used Substance Use Type: Marijuana Current occupational status: employed Gender identity: Female Meds Allergies Allergy/AdvReac Type Severity Reaction Status Date / Time amoxicillin [AMOXICILLIN] Allergy Unknown RASH, hives Verified 05/17/22 13:58 azithromycin [AZITHROMYCIN] AdvReac Unknown N/V/D Verified 05/17/22 13:58 Penicillins [PCN] AdvReac Diarrhea Verified 10/13/22 06:23 Active Medications: Current Medications Lactated Ringer's (Lr) 1,000 mls @ 100 mls/hr IVCONT .Q10H FARRAH Last Admin: 10/13/22 06:59 Dose: 100 mls/hr Home Medications Medication Instructions Recorded Confirmed Last Taken Type cetirizine 10 mg capsule (All Day 10 mg PO DAILY 02/17/20 10/13/22 Unknown History Allergy (cetirizine)) acetaminophen 500 mg tablet 500 mg PO Q6H PRN Pain 01/13/22 10/13/22 Unknown History (Tylenol Extra Strength) Exam Exam Date and Time: October 13, 2022 0718 Height,Weight and Vital Signs: Height 5 ft 3 in Weight 113.398 kg Last Vital Signs Temp 98.0 F 10/13/22 06:27 Pulse 69 10/13/22 06:27 Resp 18 10/13/22 06:27 BP 124/79 10/13/22 06:27 Pulse Ox 98 10/13/22 06:27 O2 Del Method Room Air 10/13/22 06:27 Pertinent Lab Results Pertinent Lab Results: Laboratory Tests 10/13/22 06:01 Urine Test NEGATIVE Airway Mallampati Class: III Neck ROM: Full Loose/Missing/Broken Teeth: Yes (fillings , retainer ) Assessment and Plan Assessment Anesthesia Assessment: Anesthesia Plan Discussed and Chart Reviewed Final Anesthetic Review Family History of Problems with Anesthesia: No History of Problems with Anesthesia: No NPO: Yes ASA Class: III Final Preanesthetic Review: Meds/Allgs Chart Reviewed, Consent Obtained/Reviewed and Anes Risks/Benef Reviewed Patient Risk: Intermediate Procedure Risk: Intermediate Anesthetic Plan Anesthetic Plan: GA and Agree w/ Assess. and Plan Disposition: Standard PACU
== END 2022-10-13 11:57 | disposition home or self-care (01) ==
LOC: HO.SSS 05:55
PROVIDERS: PCP Internal Medicine; Visit Provider Surgery
PROC: 0FT44ZZ Resection of Gallbladder, Percutaneous Endoscopic Approach (ICD-10-PCS; CPT 47562; principal; 2022-10-13 07:30)
DX: K80.10 Calculus of gallbladder with chronic cholecystitis without obstruction (principal); K66.0 Peritoneal adhesions (postprocedural) (postinfection); K76.0 Fatty (change of) liver, not elsewhere classified; J45.909 Unspecified asthma, uncomplicated; Z88.0 Allergy status to penicillin
CPT/HCPCS: 47562; 49329; 81025; 88304; J1100; J1170; J1956; J2250; J2370; J2371; J2405; J2550; J3010

== ENCOUNTER 2022-10-21 09:58 | Outpatient (REF) | payer OTHER, SELFPAY ==
[2022-10-21 10:29] LABS: MANUAL DIFF FLAG NO
[2022-10-21 10:52] LABS: Basophils Percent Auto 0.4 % (0-2); Eosinophils Absolute Auto 0.2 X10*3/uL (0.0-0.4); Hematocrit 39.7 % (37.0-47.0); Hemoglobin 12.7 g/dl (12.0-16.0); Imm Gran Abs Auto 0.02 X10*3/uL (0.00-0.03); Imm Gran Pct Auto 0.3 % (0.0-0.4); Lymphocytes Absolute Auto 2.7 X10*3/uL (1.2-4.9); Lymphocytes Percent Auto 37.7 % (20-40); Mean Corpuscular Hemoglobin 27.4 pg (27.0-33.0); Mean Corpuscular Volume 85.7 fL (80.0-98.0); Mean Platelet Volume 9.5 fL (9.4-12.3); Monocytes Absolute Auto 0.5 X10*3/uL (0.1-1.2); Monocytes Percent Auto 6.3 % (2-11); Neutrophils Absolute Auto 3.8 x10*3/uL (2.0-8.3); Neutrophils Percent Auto 52.3 % (45-73); Platelet Count 329 X10*3/uL (160-400); Red Blood Count 4.63 X10*6/uL (4.20-5.50); White Blood Count 7.3 X10*3/uL (4.8-10.8)
[2022-10-21 11:43] LABS: Alanine Aminotransferase 20 U/L (0-31); Albumin Level 4.2 g/dL (3.5-5.0); Alkaline Phosphatase 66 U/L (39-117); Anion Gap 11 (12-20); Aspartate Amino Transferase 17 U/L (5-31); Bilirubin Total 0.4 mg/dL (0.0-1.0); Blood Urea Nitrogen 11 mg/dL (9-16); Calcium 9.4 mg/dL (8.4-10.2); Carbon Dioxide 27 mmol/L (22-29); Chloride 107 mmol/L (96-108); Estimated Glomerular Filt Rate > 60; Glucose Random 95 mg/dL (60-115); Lipase 16 U/L (8-78); Sodium 141 mmol/L (135-145); Total Protein 7.3 g/dL (6.5-8.0)
== END 2022-10-21 09:59 | disposition home or self-care (01) ==
LOC: HO.LAB 09:58
PROVIDERS: PCP Internal Medicine; Visit Provider Surgery
DX: R10.13 Epigastric pain (principal); K80.10 Calculus of gallbladder with chronic cholecystitis without obstruction; E66.01 Morbid (severe) obesity due to excess calories; Z90.49 Acquired absence of other specified parts of digestive tract
CPT/HCPCS: 36415; 80053; 83690; 85025

== ENCOUNTER 2022-10-21 09:58 | Outpatient (AMB) | payer OTHER, SELFPAY ==
--- NOTE | 2022-10-21 09:59 | MHC.OFFVIS ---
Intake Vital Signs 10/21/22 10:04 Weight 242 lb BP 122/70 Blood Pressure Location Rt brachial Position Sitting Pulse 70 Intake Visit Reasons: S/P lap juanjo Intake Note: This patient presents for a post-op assessment status post laparoscopic cholecystectomy. Patient denies complaints at this time pertaining to surgery. Molder Hand Required: No Flight Operations Dispatch Clerk: Flight Operations Dispatch Clerk offered & declined Accompanied by: Self / Same As Patient Allergies amoxicillin [AMOXICILLIN] Allergy (Unknown, Verified 10/21/22 10:05) RASH, hives azithromycin [AZITHROMYCIN] Adverse Reaction (Unknown, Verified 10/21/22 10:05) N/V/D Penicillins [PCN] Adverse Reaction (Verified 10/21/22 10:05) Diarrhea Medication List - Last Reconciled 10/21/22 by Reymundo Vickers MD acetaminophen (Tylenol Extra Strength) 500 mg PO Q6H PRN albuterol sulfate 90 mcg/actuation 2 puffs inhalation Q6H cetirizine (All Day Allergy (cetirizine)) 10 mg PO DAILY montelukast 10 mg PO DAILY omeprazole 40 mg PO DAILY 90 days oxycodone 5 mg PO Q4H PRN HPI HPI Comments History of Present Illness Details The patient returns for follow-up after a laparoscopic cholecystectomy on 10/13/2022 for chronic calculous cholecystitis. She had initially presented a year ago, and due to , put off surgery. Since surgery, she reports an episode of severe epigastric and upper back pain that cause severe nausea and almost vomiting. Lasted about an hour, a little less. Otherwise, she reports that she has been doing well and had a little GI distress with eating fatty food. [facility] Medical History (Updated 10/21/22 @ 10:14 by Reymundo Vickers MD) Allergic rhinitis Chronic GERD COVID-19 long hauler manifesting chronic dyspnea Dyslipidemia Dysmenorrhea Epigastric abdominal pain Folliculitis Heartburn symptom History of anal fissures Impaired fasting glucose Mild intermittent asthma Obesity (BMI 30-39.9) Plantar wart Positive test Vitamin D deficiency Surgical History History of laparoscopic cholecystectomy History of wisdom tooth extraction Hx of colonoscopy Family History Father Depression CVD (cardiovascular disease) Myocardial infarction Mental health disorder Mother Wong syndrome Colon cancer Maternal Grandmother Wong syndrome Colon cancer Dermatomyositis Maternal Grandfather HTN (hypertension) Hypercholesterolemia Brother No problems noted. Social History Housing: Apartment Alcohol intake: current Alcohol intake frequency: holidays/special occasions only Alcohol type: wine Patient Tobacco Use Status: Never used Tobacco e-Cigarette/Vaping Use: Never Used Substance Use Type: Marijuana Current occupational status: employed Gender identity: Female Female Reproductive History Menstrual Age of Menarche: 11 Physical Exam Vital Signs: Last Vital Signs Pulse 70 10/21/22 10:04 BP 122/70 10/21/22 10:04 On exam she is anicteric and nontoxic Her abdominal incisions are healing well with no evidence of any infection She is in no acute respiratory distress Her abdomen is soft with no tenderness Results Reviewed Results Reviewed: I reviewed pathology from 10/13/2022 and reassured the patient there was no malignancy only CCC Assessment & Plan Assessment & Plan (1) Chronic calculous cholecystitis: Code(s): K80.10 - Calculus of gallbladder with chronic cholecystitis without obstruction (2) S/P laparoscopic cholecystectomy: Code(s): Z90.49 - Acquired absence of other specified parts of digestive tract (3) Epigastric pain: Code(s): R10.13 - Epigastric pain (4) Obesity, morbid, BMI 40.0-49.9: Code(s): E66.01 - Morbid (severe) obesity due to excess calories Plan Given the chronicity of her illness, patient is at an increased risk for choledocholithiasis and is describing acute symptoms that were significant enough that she will most can emergency room. Patient is advised to come to the emergency room if this occurs again. I have ordered nonfasting labs and an MRCP and will see the patient back when the studies are complete. Orders: Orders Comprehensive Met. Panel Today E66.01 - Morbid (severe) obesity due to excess calories, K80.10 - Calculus of gallbladder with chronic cholecystitis without obstruction, R10.13 - Epigastric pain, Z90.49 - Acquired absence of other specified parts of digestive tract Lipase Today E66.01 - Morbid (severe) obesity due to excess calories, K80.10 - Calculus of gallbladder with chronic cholecystitis without obstruction, K80.20 - Calculus of gallbladder without cholecystitis without obstruction, R10.13 - Epigastric pain, Z90.49 - Acquired absence of other specified parts of digestive tract Complete Blood Count Auto Diff Today E66.01 - Morbid (severe) obesity due to excess calories, K80.10 - Calculus of gallbladder with chronic cholecystitis without obstruction, R10.13 - Epigastric pain, Z90.49 - Acquired absence of other specified parts of digestive tract MR MRCP Today E66.01 - Morbid (severe) obesity due to excess calories, K80.10 - Calculus of gallbladder with chronic cholecystitis without obstruction, K80.50 - Calculus of bile duct without cholangitis or cholecystitis without obstruction, R10.13 - Epigastric pain, Z90.49 - Acquired absence of other specified parts of digestive tract Coding Level of Care Code Global (78615) Diagnoses Chronic calculous cholecystitis K80.10 S/P laparoscopic cholecystectomy Z90.49 Epigastric pain R10.13 Obesity, morbid, BMI 40.0-49.9 E66.01
[2022-10-21 10:04] VITALS: BP 122/70; PULSE 70
== END 2022-10-21 10:20 | disposition home or self-care (01) ==
PROVIDERS: PCP Internal Medicine; Visit Provider Surgery
DX: K80.10 Calculus of gallbladder with chronic cholecystitis without obstruction (principal); Z90.49 Acquired absence of other specified parts of digestive tract; R10.13 Epigastric pain; E66.01 Morbid (severe) obesity due to excess calories
CPT/HCPCS: 99024

== ENCOUNTER 2022-11-01 09:00 | Outpatient (REF) | payer OTHER, SELFPAY | END 2022-11-01 09:01 | disposition home or self-care (01) | LOC: HO.MRI 09:00 | PROVIDERS: PCP Internal Medicine; Visit Provider Surgery | DX: Z13.89 Encounter for screening for other disorder (principal) ==

== ENCOUNTER 2023-01-10 08:24 | Outpatient (AMB) | payer OTHER, SELFPAY ==
--- NOTE | 2023-01-10 08:31 | MHC.PC.OV ---
Vital Signs 01/10/23 08:32 Height 5 ft 3 in Weight 242 lb BMI 42.9 BP 126/78 Blood Pressure Location Lt brachial Position Sitting Pulse 87 Pulse Source Pulse Oximeter Pulse Oximetry (%) 98 Oxygen Delivery Method Room Air Intake Visit Reasons: Physical exam Intake Note: Pt is here today for her PE Is last menstrual period known: Yes Last menstrual period: 12/31/22 Allergies amoxicillin [AMOXICILLIN] Allergy (Unknown, Verified 07/13/23 23:10) RASH, hives azithromycin [AZITHROMYCIN] Adverse Reaction (Unknown, Verified 07/13/23 23:10) N/V/D Penicillins [PCN] Adverse Reaction (Verified 07/13/23 23:10) Diarrhea Medication List - Last Reconciled 01/10/23 by Eugenie Franco MD acetaminophen (Tylenol Extra Strength) 500 mg PO Q6H PRN albuterol sulfate 90 mcg/actuation 2 puffs inhalation Q6H cetirizine (All Day Allergy (cetirizine)) 10 mg PO DAILY montelukast 10 mg PO DAILY omeprazole 40 mg PO DAILY 90 days Tobacco use date assessed: 01/10/23 Dental Screening Dental Screen Date: 01/10/23 Did you have a dental visit in the last 12 months?: No Did you have a dental problem in the last 6 months where you did not have access to dental care?: No Was dental information given to patient?: Yes HPI Physical exam HPI Details 27-year-old lady here today for her physical exam. She has history of cholecystitis due to gallstones, status post cholecystectomy. She has chronic GERD currently on omeprazole followed by H him see GI. Has mild intermittent asthma and allergic rhinitis, currently on montelukast , cetirizine, and uses her albuterol inhaler as needed for episodes of bronchospasm and wheezing. Currently sees [facility] routine Pap/ pelvic exam. Complaints of an irritated and slightly painful itchy lesion on right inguinal area present for the last several days now , denies active drainage. [facility] Medical History (Updated 07/13/23 @ 23:41 by Eugenie Franco MD) Right renal mass History of vitamin D deficiency Hyperlipidemia Hx of ovarian cyst Positive test Impaired fasting glucose Vitamin D deficiency COVID-19 long hauler manifesting chronic dyspnea Chronic GERD Mild intermittent asthma Dysmenorrhea History of anal fissures Plantar wart Obesity (BMI 30-39.9) Allergic rhinitis Surgical History S/P laparoscopic cholecystectomy History of laparoscopic cholecystectomy Hx of colonoscopy History of wisdom tooth extraction Family History Father Depression CVD (cardiovascular disease) Myocardial infarction Mental health disorder Mother Wong syndrome Colon cancer Maternal Grandmother Wong syndrome Colon cancer Dermatomyositis Maternal Grandfather HTN (hypertension) Hypercholesterolemia Brother No problems noted. Social History Housing: Apartment Alcohol intake: current Alcohol intake frequency: holidays/special occasions only Alcohol type: wine Patient Tobacco Use Status: Never used Tobacco e-Cigarette/Vaping Use: Never Used Substance Use Type: Marijuana Current occupational status: employed Gender identity: Female Cognitive needs: No Hearing needs: No Vision needs: Yes Female Reproductive History Menstrual Age of Menarche: 11 Date of last menstrual period: 12/31/22 Questionnaire PHQ-9 Over the last 2 weeks, how often have you been bothered by any of the following problems? 1. Little interest or pleasure in doing things: not at all 2. Feeling down, depressed, or hopeless: not at all 3. Trouble falling or staying asleep, or sleeping too much: not at all 4. Feeling tired or having little energy: several days 5. Poor appetite or overeating: not at all 6. Feeling bad about yourself - or that you are a failure or have let yourself or your family down: several days 7. Trouble concentrating on things, such as reading the newspaper or watching television: not at all 8. Moving or speaking so slowly that other people could have noticed. Or the opposite - being so fidgety or restless that you have been moving around a lot more than usual: not at all 9. Thoughts that you would be better off or of hurting yourself in some way: not at all Total score: 2 Depression Screening Interpretation: Negative 45249 - PHQ-9 Billing: Yes Source: Developed by Drs. Kwabena Bernabe, Marjorie Cooper, Jose Mcneill and colleagues, with an educational cari from [employer]. Thrive Questionnaire Date Thrive assessed: 01/10/23 I am a: Patient What is your living situation today?: I have a steady place to live Within the past 12 months, did the food you bought not last and you didn't have the money to get more?: Often true Within the past 12 months, did you worry whether your food would run out before you got money to buy more?: Never true Do you have trouble paying for medicines?: No Do you have trouble getting transportation to medical appointments?: No Do you have trouble paying your heating and electricity bill?: Yes Do you have trouble taking care of your child, family member or friend?: Yes Do you have trouble with day-to-day activities such as bathing, preparing meals, shopping, managing finances, etc.?: No Are you currently unemployed and looking for a job?: Yes Are you interested in more education?: Yes Please select the resources that you would like help with: Housing/Residential, Food, Utilities, Childcare, Job search/training and Education AUDIT C Alcohol Use Questionnaire (AUDIT-C) 1. How often do you have a drink containing alcohol?: Never Total Score: 0 AMANDA-7 AMB Questionnaire AMANDA-7 Date AMANDA - 7 assessed: 01/10/23 Feeling nervous, anxious, or on edge: 0 = Not at all Not being able to stop or control worryin = Not at all Worrying too much about different things: 0 = Not at all Trouble relaxin = Not at all Being so restless that it is hard to sit still: 0 = Not at all Becoming easily annoyed or irritable: 1 = Several days Feeling afraid as if something awful might happen: 0 = Not at all Total AMANDA-7 score (0-4 normal; 5-9 mild; 10-14 moderate; 15-21 severe): 1 Source: Developed by Drs. Kwabena Bernabe, Marjorie Cooper, Jose Mcneill and colleagues, with an educational cari from [employer]. AMANDA-7 Assessment Billing AMANDA-7 Assessment Tool: AMANDA-7 Assessment 21595 ACT Questionnaire In the past 4 weeks, how much of the time did your asthma keep you from getting as much done at work, school or at home?: None of the time During the past 4 weeks, how often have you had shortness of breath?: Not at all During the past 4 weeks, how often did your asthma symptoms wake you up at night or earlier than usual in the morning?: Once or twice per week During the past 4 weeks, how often have you had to use your rescue inhaler or nebulizer medication?: Not at all How would you rate your asthma control during the past 4 weeks?: Completely controlled Score: 24 Review of Systems Const Denies chills, Denies fever(s), Denies malaise and Denies weight loss Eyes Reports requires corrective lenses (Goes to [facility] has myopia and astigmatism) ENT Reports no additional complaints Card Denies chest pain, Denies dyspnea and Denies dyspnea on exertion Resp Denies cough, Denies dyspnea and Denies dyspnea on exertion GI Denies change in bowel habits and Reports heartburn (Currently on omeprazole) Reports no additional complaints and Denies nipple discharge Musc Denies back pain, Denies limited range of motion and Denies stiffness Skin/Breast Reports as per HPI, Denies breast pain, Denies breast mass and Denies nipple discharge Neuro Denies focal weakness and Denies convulsions Psych Reports no additional complaints Endo Reports no additional complaints Sal/Lymph Reports no additional complaints Aller/Immun Reports seasonal rhinorrhea Physical exam (Primary Care) Vital Signs: Last Vital Signs Pulse 87 01/10/23 08:32 BP 126/78 01/10/23 08:32 Pulse Ox 98 01/10/23 08:32 Oxygen Delivery Method Room Air 01/10/23 08:32 BMI result Body Mass Index 42.9 BMI Assessment/Plan discussion: High BMI High, discussed plan: lifestyle, weight reduction, dietary and physical activity Tobacco/Smoking Status: Tobacco use Status Tobacco use date assessed 01/10/23 01/10/23 08:34 Patient Tobacco Use Status Never used Tobacco 01/10/23 08:31 e-Cigarette/Vaping Use Never Used 01/10/23 08:31 PHQ-9: PHQ-9 Score PHQ-9: Total score 2 01/10/23 09:10 Depression Screening Interpretation: Negative Thrive Assessment: Date of Thrive Assessment Date Thrive assessed 01/10/23 01/10/23 08:40 Const General: comfortable and no acute distress Orientation/consciousness: patient oriented x3 Limitations: no limitations HENMT Ears: hearing grossly normal bilaterally, external ears normal, TM's normal bilaterally and EAC's normal General nose exam: Normal external nose present and No nasal discharge present Mouth: oropharynx normal and moist mucous membranes Eyes General: appearance normal, both eyes and all related structures Conjunctivae: conjunctivae normal Pupils: Equal, round and reactive pupils present EOM: EOMs intact bilaterally Neck Neck: Yes full ROM, Yes no lymphadenopathy and Yes supple Resp Effort & Inspection: normal respiratory effort and able to speak in complete sentences Auscultation: clear to auscultation bilaterally Cardio Rate: regular rate Rhythm: regular rhythm Heart sounds: S1 normal heart sound present and S2 normal heart sound present GI Inspection: Yes normal to inspection Palpation (GI): Soft to palpation, nontender and no masses Auscultation: normal bowel sounds General: Yes deferred (Goes to [facility]) Back/Spine/Pelvis Cervical Spine: cervical ROM normal Thoracic/Lumbar Spine: thoracic and lumbar spine normal to inspection Skin Other: Slightly raised erythematous papule on right inguinal area, nonfluctuant, nontender to palpation Neuro General: patient oriented x3, gait normal, moves all extremities, Normal light touch and pain sensation and no focal motor deficits Cranial nerves: Yes Equal, round and reactive pupils present Cognition (Neuro): normal cognition Gait exam (Neuro): Normal gait present Motor exam (neuro): 5/5 motor strength present throughout Extrem General: Yes normal to inspection, Yes full ROM, Yes no joint enlargement, Yes no clubbing, cyanosis or edema and Yes normal gait Psych Appearance: grossly normal and well kempt Mental Status: mental status grossly normal Speech and movement: Normal speech and movement present Affect: normal affect Results Reviewed Results Reviewed: ENTERED: 10/21/22-[address] [facility] [address]: Eugenie Franco MD ORDERED: CMP, Lip Test Result Flag Reference Site Sodium 141 135-145 mmol/L Potassium 4.0 3.3-5.1 mmol/L CL 107 96-108 mmol/L CO2 27 22-29 mmol/L Gap 11 L 12-20 BUN 11 9-16 mg/dL Creat 0.68 0.5-1.4 mg/dL EGFR > 60 NOTE: For -[place] individuals, multiply the result by 1.210. Chronic Kidney Disease: Estimated GFR < 60 mL/min/1.73m2 Severe Kidney Disease: Estimated GFR < 15 mL/min/1.73m2 Glucose, Random 95 60-115 mg/dL CA 9.4 8.4-10.2 mg/dL Total Bili 0.4 0.0-1.0 mg/dL AST (GOT) 17 5-31 U/L ALT (GPT) 20 0-31 U/L Protein, Total 7.3 6.5-8.0 g/dL Alb 4.2 3.5-5.0 g/dL Alk Phos 66 39-117 U/L Lipase 16 8-78 U/L ENTERED: 10/21/22-[address]: Eugenie Franco MD ORDERED: CBC Auto Diff Test Result Flag Reference Site WBC 7.3 4.8-10.8 X10*3/uL RBC 4.63 4.20-5.50 X10*6/uL HGB 12.7 12.0-16.0 g/dl HCT 39.7 37.0-47.0 % MCV 85.7 80.0-98.0 fL MCH 27.4 27.0-33.0 pg MCHC 32.0 31.0-35.0 g/dl RDW 13.0 11.0-16.0 % PLT 329 160-400 X10*3/uL Assessment and Plan Assessment & Plan (1) Annual visit for general adult medical examination with abnormal findings: Code(s): Z00.01 - Encounter for general adult medical examination with abnormal findings Plan: Reviewed recent labs which showed normal CBC, electrolytes, fasting glucose, ordered a fasting lipid panel and vitamin-D level. Recommended dental visit every 6 months and regular eye exams, at least every 2 years. Take adequate calcium in diet and vitamin-D 3 at 2000 IU per cap once a day, in addition to weight-bearing exercises to help maintain good muscle tone and weight control. Instructed to do self-breast exam, sees [facility] for routine Pap and pelvic exam, reminded to do self-breast exams and to start mammogram at age 40. Has had 2 vaccines for COVID already but declines getting booster or getting flu vaccine or pneumonia vaccine at present time. She is up-to-date however with her Tdap (2) Folliculitis: Code(s): L73.9 - Follicular disorder, unspecified Plan: Prescription sent for mupirocin ointment ointment , to be applied to affected area twice a day for at least 7 days. Prescription sent for chlorhexidine gluconate wash, to use twice a week to cleanse skin well bathing. (3) Hyperlipidemia: Code(s): E78.5 - Hyperlipidemia, unspecified Qualifiers: Hyperlipidemia type: unspecified Qualified Code(s): E78.5 - Hyperlipidemia, unspecified Plan: Fasting lipid panel ordered today, reinforced importance of following a low-cholesterol diet getting regular exercise (4) Obesity, morbid, BMI 40.0-49.9: Code(s): E66.01 - Morbid (severe) obesity due to excess calories Plan: Discussed need to increase activity and wt reduction. Recommended focusing on improving your health instead of dieting. : Eat Mediterranean diet, limit foods high in fat, sugar, and calories, eat slowly, pay attention to portion sizes, plan your meals ahead of time, start regular physical activity 150 minutes of moderate intensity exercise or 90 minutes/week of vigorous exercise and stay well-hydrated (5) Mild intermittent asthma: Code(s): J45.20 - Mild intermittent asthma, uncomplicated Qualifiers: Asthma complication type: uncomplicated Qualified Code(s): J45.20 - Mild intermittent asthma, uncomplicated Plan: Has albuterol inhaler to use as needed for episodes of bronchospasm and wheezing for the most part asthma is controlled. (6) Allergic rhinitis: Code(s): J30.9 - Allergic rhinitis, unspecified Qualifiers: Allergic rhinitis trigger: unspecified Allergic rhinitis seasonality: seasonal Qualified Code(s): J30.2 - Other seasonal allergic rhinitis Plan: Refill sent for her montelukast 10 mg taken once a day in a.m. (7) Chronic GERD: Code(s): K21.9 - Gastro-esophageal reflux disease without esophagitis Plan: Continue omeprazole Orders: Orders Vitamin D 25-OH Total 01/10/23 E78.5 - Hyperlipidemia, unspecified, Z86.39 - Personal history of other endocrine, nutritional and metabolic disease Lipid Panel 01/10/23 E78.5 - Hyperlipidemia, unspecified, Z86.39 - Personal history of other endocrine, nutritional and metabolic disease Medications: New mupirocin calcium 2% 1 appl topical BID 30 grams 0RF 7 days L73.9 - Follicular disorder, unspecified chlorhexidine gluconate 4% (Antiseptic Skin Cleanser (chlorhexidine)) 1 appl topical .Once a week 946 mL 0RF Refilled montelukast 10 mg PO DAILY 90 tabs 3RF J30.9 - Allergic rhinitis, unspecified Coding Level of Care Code Est Pt Prev Care 18-39y(24255) Diagnoses Annual visit for general adult medical examination with abnormal findings Z00.01 Folliculitis L73.9 Hyperlipidemia, unspecified hyperlipidemia type E78.5 Hyperlipidemia type: unspecified Obesity, morbid, BMI 40.0-49.9 E66.01 Mild intermittent asthma without complication J45.20 Asthma complication type: uncomplicated Seasonal allergic rhinitis, unspecified trigger J30.2 Allergic rhinitis trigger: unspecified Allergic rhinitis seasonality: seasonal Chronic GERD K21.9 Additional Codes AMANDA-7 Assessment Billing - AMANDA-7 Assessment Tool: AMANDA-7 Assessment [id number] ([id number])
[2023-01-10 08:32] VITALS: BP 126/78; PULSE 87; O2SAT 98; BMI 42.9
== END 2023-01-10 09:31 | disposition home or self-care (01) ==
PROVIDERS: PCP Internal Medicine; Visit Provider Internal Medicine
DX: Z00.01 Encounter for general adult medical examination with abnormal findings (principal); L73.9 Follicular disorder, unspecified; E78.5 Hyperlipidemia, unspecified; E66.01 Morbid (severe) obesity due to excess calories; J45.20 Mild intermittent asthma, uncomplicated; J30.2 Other seasonal allergic rhinitis; K21.9 Gastro-esophageal reflux disease without esophagitis
CPT/HCPCS: 99499

== ENCOUNTER 2023-01-10 09:31 | Outpatient (REF) | payer OTHER, SELFPAY ==
[2023-01-10 12:43] LABS: Cholesterol 203 mg/dL (<200); HDL Cholesterol 43 mg/dL (>40); LDL Cholesterol Calculated 141 mg/dL (<100); Triglycerides 96 mg/dL (<150)
[2023-01-10 13:04] LABS: Vitamin D 25-OH Total 34.6 ng/mL (>30)
== END 2023-01-10 09:32 | disposition home or self-care (01) ==
LOC: HO.HMGCLDS 09:31
PROVIDERS: PCP Internal Medicine; Visit Provider Internal Medicine
DX: E78.5 Hyperlipidemia, unspecified (principal); Z86.39 Personal history of other endocrine, nutritional and metabolic disease
CPT/HCPCS: 36415; 80061; 82306

== ENCOUNTER 2023-02-09 10:45 | Outpatient (AMB) | payer OTHER, SELFPAY ==
--- NOTE | 2023-02-09 10:48 | AM.OFFWIN_ITS ---
Intake Vital Signs 02/09/23 10:50 Height 5 ft 3 in BP 102/60 Blood Pressure Location Rt brachial Position Sitting Pulse 89 Pulse Source Pulse Oximeter Temp 97.8 F Temp Source Temporal Artery Scan Pulse Oximetry (%) 99 Oxygen Delivery Method Room Air Intake Visit Reasons: EST/ingrown hair/pain when walking(lobby) Intake Note: Pt is here c/o having an ingrown here on the inside of her right thigh. Patient Tobacco Use Status: Never used Tobacco Allergies amoxicillin [AMOXICILLIN] Allergy (Unknown, Verified 02/09/23 10:50) RASH, hives azithromycin [AZITHROMYCIN] Adverse Reaction (Unknown, Verified 02/09/23 10:50) N/V/D Penicillins [PCN] Adverse Reaction (Verified 02/09/23 10:50) Diarrhea Do you need a note to return to daycare/school/sports/work: No HPI HPI Comments History of Present Illness Details 110 27-year-old female presents for with david nful lump to her right inner thigh, she reports she gets these repetitively, usually they go away however this 1 still painful, red, swollen and warm for the past few weeks worsening. She was told was an ingrown hair however she does not think this is true. Denies fevers, chills, nausea, vomiting, abdominal pain, chest pain, shortness of breath. + indurated 1 cm x 1 cm area without flu ctuance to the right inner thigh with surrounding erythema and warmth. Concerns for hidradenitis suprativa developing abscess versus folliculitis. Unlikely necrotizing infection, Hilaria gangrene. Plan at this time will discharge patient home with clindamycin ointment for early onset of outbreaks and will discharge with doxycycline for an active cellulitis. Educated patient on diagnosis and treatment plan, answered all question, patient verbalizes understanding. At this time patient will be discharged home, advised to return with new or worsening symptoms. Educated on worrisome signs and symptoms and when to return. At this time I feel comfortable discharge home. [facility] Medical History History of vitamin D deficiency Hyperlipidemia Hx of ovarian cyst Positive test Impaired fasting glucose Vitamin D deficiency COVID-19 long hauler manifesting chronic dyspnea Chronic GERD Mild intermittent asthma Dysmenorrhea History of anal fissures Plantar wart Obesity (BMI 30-39.9) Allergic rhinitis Dyslipidemia Surgical History S/P laparoscopic cholecystectomy History of laparoscopic cholecystectomy Hx of colonoscopy History of wisdom tooth extraction Family History Father Depression CVD (cardiovascular disease) Myocardial infarction Mental health disorder Mother Wong syndrome Colon cancer Maternal Grandmother Wong syndrome Colon cancer Dermatomyositis Maternal Grandfather HTN (hypertension) Hypercholesterolemia Brother No problems noted. Social History Housing: Apartment Alcohol intake: current Alcohol intake frequency: holidays/special occasions only Alcohol type: wine Patient Tobacco Use Status: Never used Tobacco e-Cigarette/Vaping Use: Never Used Substance Use Type: Marijuana Current occupational status: employed Gender identity: Female Cognitive needs: No Hearing needs: No Vision needs: Yes Female Reproductive History Menstrual Age of Menarche: 11 Review of Systems Const Details: Constitutional : No Weight loss, No Fever, No Chills, No Fatigue, No Malaise ENT/Mouth : No sore throat, No Rhinorrhea Eyes: No Eye Pain, No Swelling, No Redness Cardiovascular : No Chest Pain, No SOB, No Dyspnea on Exertion, No Orthopnea, No Edema, No Palpitations Respiratory : No Cough, No Sputum, No Wheezing Gastrointestinal : No Nausea, No Vomiting, No Diarrhea, No Constipation, No abdominal Pain, No Hematochezia, No Melena Genitourinary : No Dysuria, No Urinary Frequency, No Hematuria, Musculoskeletal : No joint pain, No Myalgias, No Joint Swelling Skin : + Skin Lesions, No rash Neuro : No Weakness, No Numbness, No Dizziness, No Headache Psych : No Anxiety/Panic, No Depression All other systems reviewed and are negative All systems reviewed & are unremarkable except as noted in HPI and below Physical Exam Vital Signs: Last Vital Signs Temp 97.8 F 02/09/23 10:50 Pulse 89 02/09/23 10:50 BP 102/60 02/09/23 10:50 Pulse Ox 99 02/09/23 10:50 Oxygen Delivery Method Room Air 02/09/23 10:50 vss Appearance: Alert.? Oriented X3.? No acute distress.? Head: Normocephalic, atraumatic, no step-offs or deformities Eyes: Pupils equal, round and reactive to light.? Neck: Normal inspection.? Neck supple.? CVS: Normal heart rate and rhythm.? Pulses normal.? Respiratory: No respiratory distress.? Breath sounds normal.? Abdomen: Soft and nontender.? Skin: Skin warm and dry.? Normal skin color.? Normal skin turgor.?+ indurated 1 cm x 1 cm area without fluctuance to the right inner thigh with surrounding erythema and warmth. Extremities: No lower extremity edema.? No calf ttp. 5/5 strength to bilateral upper and lower extremities Neuro: Oriented X 3.? No motor deficit.? No sensory deficit. CN 2-12 intact Assessment & Plan Assessment & Plan (1) Hidradenitis suppurativa: Code(s): L73.2 - Hidradenitis suppurativa Plan Take your medications as prescribed. If you were prescribed antibiotics today, it is important that you take your medication to their entirety, do not skip any doses, do not finish them early. Follow-up with your primary care provider this week. Return to the emergency department with new or worsening symptoms. Such as fevers, chills, chest pain, shortness of breath, nausea, vomiting, dizziness, headache, vision changes, lethargy In case of emergency call 911 Medications: New doxycycline hyclate 100 mg PO BID 14 caps 0RF 7 days clindamycin phosphate 1% 1 appl topical BID 60 grams 0RF Coding Level of Care Code Est Pt Level 3 (86010) Diagnoses Hidradenitis suppurativa L73.2
[2023-02-09 10:50] VITALS: BP 102/60; PULSE 89; TEMP 36.6; O2SAT 99
== END 2023-02-09 11:37 | disposition home or self-care (01) ==
PROVIDERS: PCP Internal Medicine; Visit Provider Physician Assistant
DX: L73.2 Hidradenitis suppurativa (principal)
CPT/HCPCS: 99213

== ENCOUNTER 2023-04-24 09:52 | Outpatient (REF) | payer OTHER, SELFPAY ==
[2023-04-24 11:43] LABS: Blood Urea Nitrogen 9 mg/dL (9-16); Estimated Glomerular Filt Rate > 60
== END 2023-04-24 09:53 | disposition home or self-care (01) ==
LOC: HO.LAB 09:52
PROVIDERS: PCP Internal Medicine; Visit Provider Surgery
DX: R10.11 Right upper quadrant pain (principal); G89.29 Other chronic pain; Z90.49 Acquired absence of other specified parts of digestive tract
CPT/HCPCS: 36415; 82565; 84520; 99212

== ENCOUNTER 2023-04-24 09:52 | Outpatient (AMB) | payer OTHER, SELFPAY ==
--- NOTE | 2023-04-24 10:11 | MHC.OFFVIS ---
Intake Vital Signs 04/24/23 10:22 Height 5 ft 3 in Weight 233 lb 6 oz BMI 41.3 BP 134/79 Blood Pressure Location Lt brachial Position Sitting Pulse 87 Intake Visit Reasons: RUQ pain, Hx lap juanjo * pt* Intake Note: Patient is seen in office for right upper quadrant pain, history of laparoscopic cholecystectomy. Pt c/o: gallbladder removed 10/2022, symptoms started right after surgery, pain, nausea, diarrhea, denies vomit, constipation or other concerns Mica Spreader Required: No Accompanied by: Self / Same As Patient Allergies amoxicillin [AMOXICILLIN] Allergy (Unknown, Verified 04/24/23 10:20) RASH, hives azithromycin [AZITHROMYCIN] Adverse Reaction (Unknown, Verified 04/24/23 10:20) N/V/D Penicillins [PCN] Adverse Reaction (Verified 04/24/23 10:20) Diarrhea HPI RUQ pain, Hx lap juanjo * pt* HPI Details She had undergone elective laparoscopic cholecystectomy for biliary colic last October,. She states that she continued to have periodic right upper quadrant and epigastric pain similar to her biliary colic that time. She describes this as sharp although not necessarily related to oral intake or meals. She says that she has had some diarrhea as well the past week she improved with intake of Lomotil. She denies any significant weight loss. She denies any nausea or vomiting. 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 hauler manifesting chronic dyspnea Chronic GERD Mild intermittent asthma Dysmenorrhea History of anal fissures Plantar wart Obesity (BMI 30-39.9) Allergic rhinitis Dyslipidemia Surgical History S/P laparoscopic cholecystectomy History of laparoscopic cholecystectomy Hx of colonoscopy History of wisdom tooth extraction Family History Father Depression CVD (cardiovascular disease) Myocardial infarction Mental health disorder Mother Wong syndrome Colon cancer Maternal Grandmother Wong syndrome Colon cancer Dermatomyositis Maternal Grandfather HTN (hypertension) Hypercholesterolemia Brother No problems noted. Social History Housing: Apartment Alcohol intake: current Alcohol intake frequency: holidays/special occasions only Alcohol type: wine Patient Tobacco Use Status: Never used Tobacco e-Cigarette/Vaping Use: Never Used Substance Use Type: Marijuana Current occupational status: employed Gender identity: Female Cognitive needs: No Hearing needs: No Vision needs: Yes Female Reproductive History Menstrual Age of Menarche: 11 Review of Systems Const Denies chills and Denies fever(s) Card Denies chest pain, Denies dyspnea and Denies dyspnea on exertion Resp Denies cough, Denies dyspnea and Denies dyspnea on exertion GI Denies hematochezia, Denies change in bowel habits and Reports diarrhea Denies hematuria Musc Denies back pain and Denies limited range of motion Neuro Denies focal weakness and Denies convulsions Psych Denies depression and Denies mood swings Physical Exam Const Other: Morbidly obese General: comfortable and no acute distress Orientation/consciousness: patient oriented x3 Neck Neck: Yes no lymphadenopathy Resp Auscultation: clear to auscultation bilaterally Cardio Rhythm: regular rhythm GI Other: With large pannus Palpation (GI): Soft to palpation, nontender and no guarding Neuro General: patient oriented x3 Assessment & Plan Assessment & Plan (1) Chronic RUQ pain: Code(s): R10.11 - Right upper quadrant pain; G89.29 - Other chronic pain Plan: She says she continues to have right upper quadrant and epigastric pain even after laparoscopic cholecystectomy with Dr. Vickers last October,. I am going to order for a CAT scan to rule out any other pathology for now. She also mentions having diarrhea for the past week. I did tell her that this is probably secondary to an enteritis that may not be related to her previous cholecystectomy I will see her again in the office after her CT scan. She seems to understand the plan well. Orders: Orders Blood Urea Nitrogen Today R10.11 - Right upper quadrant pain CT abdomen pelvis w IV con Today G89.29 - Other chronic pain, R10.11 - Right upper quadrant pain Creatinine Today R10.11 - Right upper quadrant pain Coding Level of Care Code Est Pt Level 3 (34848) Diagnoses Chronic RUQ pain R10.11; G89.29
[2023-04-24 10:22] VITALS: BP 134/79; PULSE 87; BMI 41.3
== END 2023-04-24 10:33 | disposition home or self-care (01) ==
PROVIDERS: PCP Internal Medicine; Visit Provider Surgery
DX: R10.11 Right upper quadrant pain (principal); G89.29 Other chronic pain
CPT/HCPCS: 99213

== ENCOUNTER 2023-05-26 07:18 | Outpatient (REF) | payer OTHER, SELFPAY ==
--- NOTE | ~2023-05-26 | CT_ITS ---
EXAMINATION: CT ABDOMEN AND PELVIS WITH CONTRAST CLINICAL INFORMATION: Right upper quadrant pain. COMPARISON: Ultrasound abdomen 10/02/2022. TECHNIQUE: Multidetector volumetric images were obtained from the superior aspect of the liver through the pubic symphysis following administration 85 mL of Omnipaque 350 intravenous contrast. Sagittal and coronal reformatted images were obtained on the technologist's workstation. Oral contrast: No This CT examination was performed using dose optimization techniques as appropriate, variously including the following: *Automated exposure control *Adjustment of mA and/or kV according to patient size (this includes techniques or standardized protocols for targeted exams where dose is matched to indication/reason for exam; i.e. extremities or head) *Use of iterative reconstruction technique DLP: 722 mGy-cm FINDINGS: LUNG BASES: The visualized lung bases are unremarkable. LIVER, GALLBLADDER, AND BILIARY TREE: The liver is mildly enlarged at 18.3 cm. Attenuation is slightly decreased consistent with hepatic steatosis. No focal hepatic lesion or biliary ductal dilatation is present. Status post cholecystectomy. PANCREAS: Unremarkable. SPLEEN: Unremarkable. ADRENAL GLANDS: Unremarkable. KIDNEYS AND URETERS: The kidneys are normal in size, shape, and attenuation. Indeterminate small 9 mm hypodensity measures 35-54 Hounsfield units. I suspect that this is a benign cyst but indeterminate because of its small size and partial volume averaging. No hydronephrosis, hydroureter, or calculi seen. No perinephric stranding. BLADDER: Unremarkable. GASTROINTESTINAL TRACT: The small and large bowel are unremarkable. The appendix is unremarkable. ABDOMINAL WALL: No significant hernia is appreciated. A small periumbilical hernia seen containing only fat. LYMPH NODES: Normal. VASCULAR: Unremarkable. PELVIC VISCERA: The uterus and adnexa are unremarkable. OSSEOUS STRUCTURES: Unremarkable. CT/CT abdomen pelvis w IV con IMPRESSION: 1. A cause for the patient's right upper quadrant pain has not been found. 2. Incidental note made of mildly enlarged fatty liver, cholecystectomy and a small periumbilical hernia containing only fat. 3. Indeterminate 9 mm right renal hypodensity. Targeted renal ultrasound is recommended for further evaluation with specific attention to the findings on the right kidney on the CT scan. Fleischner guidelines were followed.
[2023-05-26] MEDS: iohexoL 350 MG/ML 100 ML INFUS..BTL 85 ML IV (08:47)
== END 2023-05-26 07:19 | disposition home or self-care (01) ==
LOC: HO.CT 07:18
PROVIDERS: PCP Internal Medicine; Visit Provider Surgery
DX: R10.11 Right upper quadrant pain (principal); G89.29 Other chronic pain
CPT/HCPCS: 74177; Q9967

== ENCOUNTER 2023-06-08 13:12 | Outpatient (AMB) | payer OTHER, SELFPAY ==
--- NOTE | 2023-06-08 13:20 | A.OFFVIS_ITS ---
Intake Intake Visit Reasons: CT results Intake Note: This patient presents for a follow-up assessment for Ct-Scan results. Pt c/o; reports no changes. Study Director Required: No Accompanied by: Self / Same As Patient Allergies amoxicillin [AMOXICILLIN] Allergy (Unknown, Verified 06/08/23 13:23) RASH, hives azithromycin [AZITHROMYCIN] Adverse Reaction (Unknown, Verified 06/08/23 13:23) N/V/D Penicillins [PCN] Adverse Reaction (Verified 06/08/23 13:23) Diarrhea Medication List - Last Reconciled 06/08/23 by Mikie Mark MD acetaminophen (Tylenol Extra Strength) 500 mg PO Q6H PRN albuterol sulfate 90 mcg/actuation 2 puffs inhalation Q6H cetirizine (All Day Allergy (cetirizine)) 10 mg PO DAILY chlorhexidine gluconate 4% (Antiseptic Skin Cleanser (chlorhexidine)) 1 appl topical .Once a week clindamycin phosphate 1% 1 appl topical BID doxycycline hyclate 100 mg PO BID 7 days montelukast 10 mg PO DAILY mupirocin 2% 1 appl topical BID 7 days omeprazole 40 mg PO DAILY [address] results HPI Details She is here for follow-up for her right upper quadrant pain after laparoscopic cholecystectomy with Dr. Vickers last October,. She says she still has some periodic abdominal pain although this is not as bad. She is good oral intake otherwise. She denies any weight loss. [facility] Medical History (Updated 06/08/23 @ 13:34 by Mikie Mark MD) Right renal mass RUQ pain History of vitamin D deficiency Hyperlipidemia Hx of ovarian cyst Positive test Impaired fasting glucose Vitamin D deficiency COVID-19 long hauler manifesting chronic dyspnea Chronic GERD Mild intermittent asthma Dysmenorrhea History of anal fissures Plantar wart Obesity (BMI 30-39.9) Allergic rhinitis Dyslipidemia Surgical History S/P laparoscopic cholecystectomy History of laparoscopic cholecystectomy Hx of colonoscopy History of wisdom tooth extraction Family History Father Depression CVD (cardiovascular disease) Myocardial infarction Mental health disorder Mother Wong syndrome Colon cancer Maternal Grandmother Wong syndrome Colon cancer Dermatomyositis Maternal Grandfather HTN (hypertension) Hypercholesterolemia Brother No problems noted. Social History Housing: Apartment Alcohol intake: current Alcohol intake frequency: holidays/special occasions only Alcohol type: wine Patient Tobacco Use Status: Never used Tobacco e-Cigarette/Vaping Use: Never Used Substance Use Type: Marijuana Current occupational status: employed Gender identity: Female Cognitive needs: No Hearing needs: No Vision needs: Yes Female Reproductive History Menstrual Age of Menarche: 11 Review of Systems Const Denies chills and Denies fever(s) Card Denies chest pain, Denies dyspnea and Denies dyspnea on exertion Resp Denies cough, Denies dyspnea and Denies dyspnea on exertion GI Denies hematochezia and Denies change in bowel habits Denies hematuria Musc Denies back pain and Denies limited range of motion Neuro Denies focal weakness and Denies convulsions Psych Denies depression and Denies mood swings Physical Exam Const Other: Morbidly obese General: comfortable and no acute distress Resp Effort & Inspection: normal respiratory effort GI Palpation (GI): Soft to palpation, not firm and nontender Assessment & Plan Assessment & Plan (1) RUQ pain: Code(s): R10.11 - Right upper quadrant pain Plan: I have reviewed her CAT scan. This does not reveal any pathology that may explain her right upper quadrant pain. It is likely that this may be secondary to scarring in the area from her previous laparoscopic cholecystectomy. Other etiology may be peptic ulcer disease She looks well otherwise. I also counseled her on the benefits of weight loss. She seems to have some peace of mind with her CT scan findings. She can follow up with me or Dr. Vickers on a p.r.n. basis. (2) Right renal mass: Code(s): N28.89 - Other specified disorders of kidney and ureter Plan: She has an indeterminate hypodensity in the right kidney measuring 9 mm. An ultrasound had been recommended. I have scheduled this for her. Orders: Orders US renal RT Today N28.89 - Other specified disorders of kidney and ureter, R10.11 - Right upper quadrant pain Coding Level of Care Code Est Pt Level 3 (69501) Diagnoses RUQ pain R10.11 Right renal mass N28.89
== END 2023-06-08 13:28 | disposition home or self-care (01) ==
PROVIDERS: PCP Internal Medicine; Visit Provider Surgery
DX: R10.11 Right upper quadrant pain (principal); N28.89 Other specified disorders of kidney and ureter
CPT/HCPCS: 99213

== ENCOUNTER → 2023-06-08 13:12 | Outpatient (BNVA) | payer OTHER, SELFPAY | PROVIDERS: PCP Internal Medicine; Visit Provider Surgery | DX: N28.89 Other specified disorders of kidney and ureter (principal); R10.11 Right upper quadrant pain | CPT/HCPCS: 99212 ==

== ENCOUNTER 2023-06-19 08:38 | Outpatient (AMB) | payer OTHER, SELFPAY ==
--- NOTE | 2023-06-19 09:08 | AM.OFFWIN_ITS ---
Intake Vital Signs 06/19/23 09:10 Weight 235 lb BP 118/70 Blood Pressure Location Rt brachial Position Sitting Pulse 78 Pulse Source Pulse Oximeter Pulse Oximetry (%) 96 Oxygen Delivery Method Room Air Intake Visit Reasons: EP Bilateral ear pain/swollen lymph, rash belly Intake Note: Patient here for pain in lymph nodes which is causing ear pain, also has rash o lower belly which has been present on and off since having her child last year. Patient Tobacco Use Status: Never used Tobacco Allergies amoxicillin [AMOXICILLIN] Allergy (Unknown, Verified 06/19/23 09:33) RASH, hives azithromycin [AZITHROMYCIN] Adverse Reaction (Unknown, Verified 06/19/23 09:33) N/V/D Penicillins [PCN] Adverse Reaction (Verified 06/19/23 09:33) Diarrhea Medication List - Last Reconciled 06/19/23 by Houston Pace MD acetaminophen (Tylenol Extra Strength) 500 mg PO Q6H PRN albuterol sulfate 90 mcg/actuation 2 puffs inhalation Q6H cetirizine (All Day Allergy (cetirizine)) 10 mg PO DAILY chlorhexidine gluconate 4% (Antiseptic Skin Cleanser (chlorhexidine)) 1 appl topical .Once a week clindamycin phosphate 1% 1 appl topical BID doxycycline hyclate 100 mg PO BID 7 days montelukast 10 mg PO DAILY mupirocin 2% 1 appl topical BID 7 days omeprazole 40 mg PO DAILY 90 days Do you need a note to return to daycare/school/sports/work: Yes HPI EP Bilateral ear pain/swollen lymph, rash belly HPI Details 28-year-old [facility] She has multiple complaints. Patient is reporting discomfort in her ears since yesterday. She feels it could be a lymph node swollen in the neck as she has discomfort on turning her head to under action. Minimal postnasal drip. No fevers or chills. Patient has a rash on her abdomen for the past year. Intermittent in nature. Persistent foul discharge from the umbilicus. This has been going on since the of her young child who is now [id number]. [facility] Medical History Right renal mass RUQ pain History of vitamin D deficiency Hyperlipidemia Hx of ovarian cyst Positive test Impaired fasting glucose Vitamin D deficiency COVID-19 long hauler manifesting chronic dyspnea Chronic GERD Mild intermittent asthma Dysmenorrhea History of anal fissures Plantar wart Obesity (BMI 30-39.9) Allergic rhinitis Dyslipidemia Surgical History S/P laparoscopic cholecystectomy History of laparoscopic cholecystectomy Hx of colonoscopy History of wisdom tooth extraction Family History Father Depression CVD (cardiovascular disease) Myocardial infarction Mental health disorder Mother Wong syndrome Colon cancer Maternal Grandmother Wong syndrome Colon cancer Dermatomyositis Maternal Grandfather HTN (hypertension) Hypercholesterolemia Brother No problems noted. Social History Housing: Apartment Alcohol intake: current Alcohol intake frequency: holidays/special occasions only Alcohol type: wine Patient Tobacco Use Status: Never used Tobacco e-Cigarette/Vaping Use: Never Used Substance Use Type: Marijuana Current occupational status: employed Gender identity: Female Cognitive needs: No Hearing needs: No Vision needs: Yes Female Reproductive History Menstrual Age of Menarche: 11 Physical Exam Vital Signs: Last Vital Signs Pulse 78 06/19/23 09:10 BP 118/70 06/19/23 09:10 Pulse Ox 96 06/19/23 09:10 Oxygen Delivery Method Room Air 06/19/23 09:10 Const General: cooperative and healthy appearing Nutritional Appearance: well nourished Orientation/consciousness: patient oriented x3 Limitations: no limitations HEENT Head: Yes normal to inspection Eyes General: appearance normal, both eyes and all related structures Neck Neck: Yes normal visual inspection Chest Chest palpation & inspection: normal palpation of entire chest wall Resp Effort & Inspection: normal respiratory effort Skin Other: Abdominal wall: Tiny papules below the umbilicus. Umbilicus: No discharge at the present. Neuro General: patient oriented x3 Assessment & Plan Assessment & Plan (1) Upper respiratory tract infection: Code(s): J06.9 - Acute upper respiratory infection, unspecified Plan: Viral respiratory infection. No antibiotics needed. Supportive care. (2) Irritant dermatitis: Code(s): L24.9 - Irritant contact dermatitis, unspecified cause Plan: Hydroxyzine added to the regimen. To follow-up with her primary care if symptoms do not improve. Coding Level of Care Code Est Pt Level 4 (11999) Diagnoses Upper respiratory tract infection J06.9 Irritant dermatitis L24.9
[2023-06-19 09:10] VITALS: BP 118/70; PULSE 78; O2SAT 96
== END 2023-06-19 10:03 | disposition home or self-care (01) ==
PROVIDERS: PCP Internal Medicine; Visit Provider Internal Medicine
DX: J06.9 Acute upper respiratory infection, unspecified (principal); L24.9 Irritant contact dermatitis, unspecified cause
CPT/HCPCS: 99214

== ENCOUNTER 2023-06-23 13:36 | Outpatient (REF) | payer OTHER, SELFPAY ==
--- NOTE | ~2023-06-23 | US_ITS ---
EXAMINATION: US RETROPERITONEAL LIMITED (RENAL ONLY) CLINICAL INFORMATION: Other specified disorders of kidney and ureter. Right renal mass, RUQ pain. COMPARISON: CT abdomen and pelvis 03/25/2024. Ultrasound abdomen limited 10/02/2022 and 10/24/2021. TECHNIQUE: Real-time imaging of the kidneys. FINDINGS: RIGHT KIDNEY: 11.7 x 3.9 x 5.5 cm (SAG x AP x TRV). The kidney is normal in size, contour, and echogenicity. Renal cortical thickness is normal. No renal calculi or hydronephrosis. 9 mm simple cysts in the right lower kidney corresponds to the finding on CT scan. No imaging follow-up is recommended. LEFT KIDNEY: 11.1 x 5.6 x 5.4 cm (SAG x AP x TRV). The kidney is normal in size, contour, and echogenicity. Renal cortical thickness is normal. No calculi or focal parenchymal lesions. No hydronephrosis. US/US renal BI IMPRESSION: 0.9 cm simple cyst in the lower right kidney corresponding to the hypodensity on CT scan. No imaging follow-up is recommended.
== END 2023-06-23 13:37 | disposition home or self-care (01) ==
LOC: HO.HMGCX 13:36
PROVIDERS: PCP Internal Medicine; Visit Provider Surgery
DX: N28.89 Other specified disorders of kidney and ureter (principal); R10.11 Right upper quadrant pain
CPT/HCPCS: 76775

== ENCOUNTER 2023-07-17 10:24 | Outpatient (AMB) | payer OTHER, SELFPAY ==
--- NOTE | 2023-07-17 10:26 | A.OFFPC_ITS ---
<Statement entered by Eugenie Franco MD - 09/10/24 10:35> This note has been administratively?closed. Vital Signs 07/17/23 10:29 Height 5 ft 3 in Weight 231 lb BMI 40.9 BP 100/70 Blood Pressure Location Rt brachial Position Sitting Pulse 75 Pulse Source Pulse Oximeter Pulse Oximetry (%) 98 Oxygen Delivery Method Room Air Intake Visit Reasons: 6 month fu Intake Note: Pt is here today for her 6 months f/u Allergies amoxicillin [AMOXICILLIN] Allergy (Unknown, Verified 06/07/24 13:34) RASH, hives azithromycin [AZITHROMYCIN] Adverse Reaction (Unknown, Verified 06/07/24 13:34) N/V/D Penicillins [PCN] Adverse Reaction (Verified 06/07/24 13:34) Diarrhea Medication List - Last Reconciled 07/17/23 by Eugenie Franco MD acetaminophen (Tylenol Extra Strength) 500 mg PO Q6H PRN albuterol sulfate 90 mcg/actuation 2 puffs inhalation Q6H cetirizine (All Day Allergy (cetirizine)) 10 mg PO DAILY clindamycin phosphate 1% 1 appl topical BID montelukast 10 mg PO DAILY omeprazole 40 mg PO DAILY 90 days Tobacco use date assessed: 07/17/23 Dental Screening Dental Screen Date: 07/17/23 [facility] Medical History Impaired fasting glucose Vulval hidradenitis suppurativa History of vitamin D deficiency Hyperlipidemia Hx of ovarian cyst Positive test Vitamin D deficiency COVID-19 long hauler manifesting chronic dyspnea Chronic GERD Mild intermittent asthma Dysmenorrhea History of anal fissures Plantar wart Obesity (BMI 30-39.9) Allergic rhinitis Surgical History S/P laparoscopic cholecystectomy History of laparoscopic cholecystectomy Hx of colonoscopy History of wisdom tooth extraction Family History Father Depression CVD (cardiovascular disease) Myocardial infarction Mental health disorder Mother Wong syndrome Colon cancer Maternal Grandmother Wong syndrome Colon cancer Dermatomyositis Maternal Grandfather HTN (hypertension) Hypercholesterolemia Brother No problems noted. Social History (Reviewed 06/07/24 @ 13:37 by Luis Miguel Castellon [facility]) Housing: Apartment Alcohol intake: current Alcohol intake frequency: holidays/special occasions only Alcohol type: wine Patient Tobacco Use Status: Never used Tobacco e-Cigarette/Vaping Use: Never Used Substance Use Type: Marijuana Current occupational status: employed Gender identity: Female Cognitive needs: No Hearing needs: No Vision needs: Yes Female Reproductive History Menstrual Age of Menarche: 11 Questionnaire PHQ-9 Over the last 2 weeks, how often have you been bothered by any of the following problems? 1. Little interest or pleasure in doing things: not at all 2. Feeling down, depressed, or hopeless: not at all 3. Trouble falling or staying asleep, or sleeping too much: not at all 4. Feeling tired or having little energy: not at all 5. Poor appetite or overeating: not at all 6. Feeling bad about yourself - or that you are a failure or have let yourself or your family down: not at all 7. Trouble concentrating on things, such as reading the newspaper or watching television: not at all 8. Moving or speaking so slowly that other people could have noticed. Or the opposite - being so fidgety or restless that you have been moving around a lot more than usual: not at all 9. Thoughts that you would be better off or of hurting yourself in some way: not at all Total score: 0 Depression Screening Interpretation: Negative Depression Screening Done: Yes 80899 - PHQ-9 Billing: Yes Source: Developed by Drs. Kwabena Bernabe, Marjorie Cooper, Jose Mcneill and colleagues, with an educational cari from [employer]. Thrive Questionnaire Date Thrive assessed: 07/17/23 I am a: Patient What is your living situation today?: I have a steady place to live Within the past 12 months, did the food you bought not last and you didn't have the money to get more?: Never true Within the past 12 months, did you worry whether your food would run out before you got money to buy more?: Never true Do you have trouble paying for medicines?: No Do you have trouble getting transportation to medical appointments?: No Do you have trouble paying your heating and electricity bill?: No Do you have trouble taking care of your child, family member or friend?: No Do you have trouble with day-to-day activities such as bathing, preparing meals, shopping, managing finances, etc.?: No Are you currently unemployed and looking for a job?: No Are you interested in more education?: No THRIVE Score: 0 AUDIT C Alcohol Use Questionnaire (AUDIT-C) 1. How often do you have a drink containing alcohol?: Monthly or less 2. How many drinks containing alcohol do you have on a typical day when you are drinking?: 1 or 2 3. How often do you have six or more drinks on one occasion?: Never Total Score: 1 AMANDA-7 AMB Questionnaire AMANDA-7 Date AMANDA - 7 assessed: 02/08/23 Feeling nervous, anxious, or on edge: 0 = Not at all Not being able to stop or control worryin = Not at all Worrying too much about different things: 0 = Not at all Trouble relaxin = Not at all Being so restless that it is hard to sit still: 0 = Not at all Becoming easily annoyed or irritable: 0 = Not at all Feeling afraid as if something awful might happen: 0 = Not at all Total AMANDA-7 score (0-4 normal; 5-9 mild; 10-14 moderate; 15-21 severe): 0 Source: Developed by Drs. Kwabena Bernabe, Marjorie Cooper, Jose Mcneill and colleagues, with an educational cari from [employer]. Physical exam (Primary Care) Vital Signs: Last Vital Signs Pulse 75 07/17/23 10:29 BP 100/70 07/17/23 10:29 Pulse Ox 98 07/17/23 10:29 Oxygen Delivery Method Room Air 07/17/23 10:29 BMI result Body Mass Index 40.9 Tobacco/Smoking Status: Tobacco use Status Tobacco use date assessed 07/17/23 07/17/23 10:32 Patient Tobacco Use Status Never used Tobacco 07/17/23 10:26 e-Cigarette/Vaping Use Never Used 07/17/23 10:26 PHQ-9: PHQ-9 Score PHQ-9: Total score 0 07/17/23 10:57 Depression Screening Interpretation: Negative Thrive Assessment: Date of Thrive Assessment Date Thrive assessed 07/17/23 07/17/23 10:38 Coding Level of Care Code Admin Sign Off/No Billing Diagnoses Heartburn R12 Pain of upper abdomen R10.10
[2023-07-17 10:29] VITALS: BP 100/70; PULSE 75; O2SAT 98; BMI 40.9
== END 2023-07-17 14:22 | disposition home or self-care (01) ==
PROVIDERS: PCP Internal Medicine; Visit Provider Internal Medicine
DX: R12 Heartburn (principal); R10.10 Upper abdominal pain, unspecified
CPT/HCPCS: 99499

== ENCOUNTER 2023-07-22 09:33 | Outpatient (AMB) | payer OTHER, SELFPAY ==
[2023-07-22 10:35] VITALS: BP 94/60; PULSE 84; TEMP 36.7; O2SAT 98; BMI 41.4
--- NOTE | 2023-07-22 10:35 | AM.OFFWIN_ITS ---
Intake Vital Signs 3 07/22/23 10:35 Height 5 ft 3 in Weight 234 lb BMI 41.4 BP 94/60 Blood Pressure Location Lt brachial Position Sitting Pulse 84 Pulse Source Pulse Oximeter Temp 98.1 F Temp Source Oral Pulse Oximetry (%) 98 Oxygen Delivery Method Room Air Intake Visit Reasons: EP RT side pain/swelling into ear up face Intake Note: Pt is here today c/o Rt side of face swelling and painful Patient Tobacco Use Status: Never used Tobacco Allergies amoxicillin [AMOXICILLIN] Allergy (Unknown, Verified 07/22/23 10:36) RASH, hives azithromycin [AZITHROMYCIN] Adverse Reaction (Unknown, Verified 07/22/23 10:36) N/V/D Penicillins [PCN] Adverse Reaction (Verified 07/22/23 10:36) Diarrhea HPI EP RT side pain/swelling into ear up face 2 HPI0 Details Patient is a 28-year-old female comes the walk-in clinic complaining of pain and swelling to just behind her right TMJ with any pressure or palpation there. She denies acute injury or known repetitive motions, and denies pain with eating, inner ear pain, headache or dizziness, popping or grinding with opening and closing her jaw, nasal congestion, cough or other respiratory symptoms or other significant associated symptoms. Her son does currently have a viral URI. [facility] Medical History Right renal mass History of vitamin D deficiency Hyperlipidemia Hx of ovarian cyst Positive test Impaired fasting glucose Vitamin D deficiency COVID-19 long hauler manifesting chronic dyspnea Chronic GERD Mild intermittent asthma Dysmenorrhea History of anal fissures Plantar wart Obesity (BMI 30-39.9) Allergic rhinitis Surgical History S/P laparoscopic cholecystectomy History of laparoscopic cholecystectomy Hx of colonoscopy History of wisdom tooth extraction Family History Father Depression CVD (cardiovascular disease) Myocardial infarction Mental health disorder Mother Wong syndrome Colon cancer Maternal Grandmother Wong syndrome Colon cancer Dermatomyositis Maternal Grandfather HTN (hypertension) Hypercholesterolemia Brother No problems noted. Social History Housing: Apartment Alcohol intake: current Alcohol intake frequency: holidays/special occasions only Alcohol type: wine Patient Tobacco Use Status: Never used Tobacco e-Cigarette/Vaping Use: Never Used Substance Use Type: Marijuana Current occupational status: employed Gender identity: Female Cognitive needs: No Hearing needs: No Vision needs: Yes Female Reproductive History Menstrual Age of Menarche: 11 Review of Systems Const All systems reviewed & are unremarkable except as noted in HPI and below Physical Exam Vital Signs: Last Vital Signs Temp 98.1 F 07/22/23 10:35 Pulse 84 07/22/23 10:35 BP 94/60 07/22/23 10:35 Pulse Ox 98 07/22/23 10:35 Oxygen Delivery Method Room Air 07/22/23 10:35 BMI result Body Mass Index 41.4 Const General: cooperative, healthy appearing, comfortable, no acute distress, alert, awake, Physically active and well groomed; No anxious, diaphoretic, ill appearing, intoxicated appearing, poor hygiene or tired appearing Nutritional Appearance: average body habitus Limitations: no limitations HEENT Head: Yes normal to inspection, Yes normocephalic and Yes atraumatic Ears: hearing grossly normal bilaterally, external ears normal, TM's normal bilaterally, EAC's normal and no periauricular adenopathy (Small palpable mass adjacent to the R tragus, just behind TMJ) Outer ear/TM images: 2 1. General nose exam: Normal external nose present, Normal nares present, No nasal polyps present, Normal nasal mucous membranes and turbinates present, Normal septum present and No nasal discharge present Face and sinus: Yes normal facial exam, Yes sinuses nontender and Yes face symmetric Mouth: Normal oral and palatal mucosa present, lip normal and tongue normal Throat: Yes posterior oropharynx normal, No peritonsillar mass, No postnasal drainage, No uvular edema and No cobblestoning Eyes General: appearance normal, both eyes and all related structures Neck Neck: Yes normal visual inspection, Yes no lymphadenopathy, Yes trachea midline, Yes supple and No anterior neck swelling Resp Effort & Inspection: normal respiratory effort Skin Other: Good color, warm and dry Psych Appearance: grossly normal Mental Status: mental status grossly normal Speech and movement: Normal speech and movement present Affect: normal affect Attitude: cooperative Thought process: Normal thought process present Insight: Good insight present (Psych) Judgement: Good judgement present (Psych) Assessment & Plan Assessment & Plan (1) Ear pain, right: Code(s): H92.01 - Otalgia, right ear Plan: Patient has very small palpable mass adjacent to the right tragus and just behind the TMJ, which is likely a lymph node, but there is no visible or palpable swelling, and no other obvious lymphadenopathy. Her ears do have some fluid visible through the TMs. She does have a history of allergies, and it is possible this is the cause, or a mild viral URI. Her 1-year-old son currently has a URI apparently. I did swab her for viral panel today to rule out flu COVID and RSV, and results are pending. I advised that she heat the area and do gentle massage. I wrote her for a course of naproxen as needed. If symptoms worsen, she can start doxycycline, as she is allergic to Augmentin. She will follow up if symptoms persist, worsen or change. Orders: Orders 2 SARS-CoV2/FLU/RSV Today R05.9 - Cough, unspecified Medications: New 2 naproxen 500 mg PO BID PRN 28 tabs 0RF pain 14 days doxycycline monohydrate 100 mg PO BID 14 caps 0RF 7 days Coding Level of Care Code Est Pt Level 4 (13509) Diagnoses Ear pain, right H92.01
== END 2023-07-22 11:45 | disposition home or self-care (01) ==
PROVIDERS: PCP Internal Medicine; Visit Provider Physician Assistant Medical
DX: H92.01 Otalgia, right ear (principal)
CPT/HCPCS: 99051; 99214

== ENCOUNTER 2023-07-22 13:35 | Outpatient (REF) | payer OTHER, SELFPAY ==
[2023-07-22 14:39] LABS: Influenza A PCR NEGATIVE (Negative); Influenza B PCR NEGATIVE (Negative); Resp Syncy Virus RNA Qual PCR NEGATIVE (Negative); SARS COV2 PCR INHOUSE NEGATIVE (Negative)
== END 2023-07-22 13:36 | disposition home or self-care (01) ==
LOC: HO.LNP 13:35
PROVIDERS: Visit Provider Physician Assistant Medical
DX: R05.9 Cough, unspecified (principal)
CPT/HCPCS: 0241U

== ENCOUNTER 2023-09-14 08:23 | Outpatient (REF) | payer OTHER, SELFPAY ==
--- NOTE | ~2023-09-14 | FL_ITS ---
EXAMINATION: XR FLUOROSCOPY UPPER GI WITH AIR CLINICAL INFORMATION: Right upper quadrant abdominal pain despite cholecystectomy. COMPARISON: None TECHNIQUE: Fluoroscopic air contrast upper GI examination was performed utilizing standard techniques with thin and thick barium and effervescent granules. Numerous spot images were obtained. FINDINGS: Dual and single contrast images of the esophagus demonstrate normal caliber, contour, and mucosal pattern. No evidence of stricture, mass, or ulcerations identified. Esophageal peristalsis was normal. No evidence of hiatus hernia identified. No significant gastroesophageal reflux was seen during the course of the examination and on reflux views. Dual contrast and single contrast images of the stomach demonstrated a normal contour. The gastric rugal folds have a thickened appearance. No masses or ulcerations are seen. Contrast freely passed into the gastric antrum and duodenal bulb without delay. Single and air-contrast images of the duodenal bulb demonstrate no abnormality. The duodenal sweep has a normal appearance, course, and mucosal fold appearance. The imaged proximal jejunum has a normal fold pattern and caliber. FLUOROSCOPY TIME: 4 minutes 13 seconds Number of Spot Images: 12 Number of Cine: 13 DOSE AREA PRODUCT: [id number] uGy-m2 (microgray-meter squared) FL/FL upper GI w air IMPRESSION: 1. Thickened appearance of the gastric rugal folds that suggests gastritis. Otherwise, unremarkable upper GI series This procedure was performed by Ildefonso Pantoja PA-C, and supervised by Dr. Armendariz
== END 2023-09-14 08:24 | disposition home or self-care (01) ==
LOC: HO.XRAY 08:23
PROVIDERS: PCP Internal Medicine; Visit Provider Internal Medicine
DX: R10.10 Upper abdominal pain, unspecified (principal); R12 Heartburn
CPT/HCPCS: 74246

== ENCOUNTER → 2023-09-14 08:24 | Outpatient (BNV) | payer OTHER, SELFPAY | PROVIDERS: PCP Internal Medicine; Visit Provider Physician Assistant Surgical | DX: R10.11 Right upper quadrant pain (principal) | CPT/HCPCS: 74246 ==

== ENCOUNTER 2023-12-19 12:39 | Outpatient (AMB) | payer OTHER, SELFPAY ==
[2023-12-19 12:44] VITALS: BP 120/80; PULSE 70; O2SAT 97; BMI 42.7
--- NOTE | 2023-12-19 12:44 | AM.OFFWIN_ITS ---
Intake Vital Signs 12/19/23 12:44 Height 5 ft 3 in Weight 241 lb BMI 42.7 BP 120/80 Blood Pressure Location Lt brachial Position Sitting Pulse 70 Pulse Source Pulse Oximeter Pulse Oximetry (%) 97 Oxygen Delivery Method Room Air Intake Visit Reasons: EP LT foot pain Intake Note: Patient here for let foot pain that has been present for about 1 month. Patient Tobacco Use Status: Never used Tobacco Allergies amoxicillin [AMOXICILLIN] Allergy (Unknown, Verified 12/19/23 12:49) RASH, hives azithromycin [AZITHROMYCIN] Adverse Reaction (Unknown, Verified 12/19/23 12:49) N/V/D Penicillins [PCN] Adverse Reaction (Verified 12/19/23 12:49) Diarrhea Do you need a note to return to daycare/school/sports/work: No HPI HPI Comments History of Present Illness Details Patient is a 28-year-old female complaining of 1 month of worsening left foot pain. She states she did not injure her foot in any way. She states when she walks on it it feels worse and it is worse in the morning when she is 1st getting up. She has not done any therapies to try to make it feel better. [facility] Medical History Right renal mass History of vitamin D deficiency Hyperlipidemia Hx of ovarian cyst Positive test Impaired fasting glucose Vitamin D deficiency COVID-19 long hauler manifesting chronic dyspnea Chronic GERD Mild intermittent asthma Dysmenorrhea History of anal fissures Plantar wart Obesity (BMI 30-39.9) Allergic rhinitis Surgical History S/P laparoscopic cholecystectomy History of laparoscopic cholecystectomy Hx of colonoscopy History of wisdom tooth extraction Family History Father Depression CVD (cardiovascular disease) Myocardial infarction Mental health disorder Mother Wong syndrome Colon cancer Maternal Grandmother Wong syndrome Colon cancer Dermatomyositis Maternal Grandfather HTN (hypertension) Hypercholesterolemia Brother No problems noted. Social History Housing: Apartment Alcohol intake: current Alcohol intake frequency: holidays/special occasions only Alcohol type: wine Patient Tobacco Use Status: Never used Tobacco e-Cigarette/Vaping Use: Never Used Substance Use Type: Marijuana Current occupational status: employed Gender identity: Female Cognitive needs: No Hearing needs: No Vision needs: Yes Female Reproductive History Menstrual Age of Menarche: 11 Review of Systems Const All systems reviewed & are unremarkable except as noted in HPI and below Physical Exam Vital Signs: Last Vital Signs Pulse 70 12/19/23 12:44 BP 120/80 12/19/23 12:44 Pulse Ox 97 12/19/23 12:44 Oxygen Delivery Method Room Air 12/19/23 12:44 BMI result Body Mass Index 42.7 Const General: cooperative, healthy appearing, comfortable and no acute distress Orientation/consciousness: patient oriented x3 Limitations: no limitations HEENT Head: Yes normal to inspection Resp Effort & Inspection: normal respiratory effort and able to speak in complete sentences Neuro General: patient oriented x3 Extrem Left lower extremity: foot Details: normal capillary refill, normal to inspection, tenderness Location: of the plantar foot and of the calcaneus, toes with normal ROM, no edema and vascular exam Details: normal capillary refill; no unusual warmth, no abrasions, no lacerations and no ecchymosis Assessment & Plan Assessment & Plan (1) Plantar fasciitis of left foot: Code(s): M72.2 - Plantar fascial fibromatosis Plan: Recommended she rest, use a ice water bottle to roll her foot on as often as possible and take Aleve around the clock for the next 5-6 days and then as needed. If no resolution in symptoms, she can follow up with her PCP as patient already has an appointment scheduled with her PCP in late January. Plan See above Coding Level of Care Code Est Pt Level 3 (02042) Diagnoses Plantar fasciitis of left foot M72.2
== END 2023-12-19 13:27 | disposition home or self-care (01) ==
PROVIDERS: PCP Internal Medicine; Visit Provider Physician Assistant
DX: M72.2 Plantar fascial fibromatosis (principal)
CPT/HCPCS: 99213

== ENCOUNTER 2024-01-27 07:29 | Outpatient (REF) | payer OTHER, SELFPAY ==
[2024-01-27 12:12] LABS: Alanine Aminotransferase 18 U/L (0-31); Aspartate Amino Transferase 17 U/L (5-31); Cholesterol 189 mg/dL (<200); Glucose Fasting 102 mg/dL (60-99); HDL Cholesterol 41 mg/dL (>40); LDL Cholesterol Calculated 128 mg/dL (<100); Triglycerides 101 mg/dL (<150)
[2024-01-27 12:27] LABS: Vitamin D 25-OH Total 41.3 ng/mL (>30)
== END 2024-01-27 07:30 | disposition home or self-care (01) ==
LOC: HO.HMGCLDS 07:29
PROVIDERS: PCP Internal Medicine; Visit Provider Internal Medicine
DX: E78.5 Hyperlipidemia, unspecified (principal); E66.01 Morbid (severe) obesity due to excess calories; J45.20 Mild intermittent asthma, uncomplicated; Z86.39 Personal history of other endocrine, nutritional and metabolic disease
CPT/HCPCS: 36415; 80061; 82306; 82947; 84450; 84460

== ENCOUNTER 2024-01-30 08:04 | Outpatient (AMB) | payer OTHER, SELFPAY ==
[2024-01-30 08:07] VITALS: BP 102/68; PULSE 82; O2SAT 97; BMI 41.8
--- NOTE | 2024-01-30 08:07 | MHC.PC.OV ---
Vital Signs 01/30/24 08:07 Height 5 ft 3 in Weight 236 lb BMI 41.8 BP 102/68 Blood Pressure Location Rt brachial Position Sitting Pulse 82 Pulse Source Pulse Oximeter Pulse Oximetry (%) 97 Oxygen Delivery Method Room Air Intake Visit Reasons: Annual PE Intake Note: Pt is here today for her PE Is last menstrual period known: Yes Last menstrual period: 01/16/24 Allergies amoxicillin [AMOXICILLIN] Allergy (Unknown, Verified 01/30/24 08:19) RASH, hives azithromycin [AZITHROMYCIN] Adverse Reaction (Unknown, Verified 01/30/24 08:19) N/V/D Penicillins [PCN] Adverse Reaction (Verified 01/30/24 08:19) Diarrhea Medication List - Last Reconciled 01/30/24 by Eugenie Franco MD acetaminophen (Tylenol Extra Strength) 500 mg PO Q6H PRN albuterol sulfate 90 mcg/actuation 2 puffs inhalation Q6H cetirizine (All Day Allergy (cetirizine)) 10 mg PO DAILY clindamycin phosphate 1% 1 appl topical BID famotidine 40 mg PO BEDTIME montelukast 10 mg PO DAILY omeprazole 40 mg PO DAILY 90 days Tobacco use date assessed: 01/30/24 Dental Screening Dental Screen Date: 01/30/24 Did you have a dental visit in the last 12 months?: No Did you have a dental problem in the last 6 months where you did not have access to dental care?: No Was dental information given to patient?: Patient has dentist HPI Annual PE HPI Details 20-year-old lady with past medical history of hyperlipidemia, chronic GERD with gastritis seen on upper GI series, history of cholecystitis and cholelithiasis status post cholecystectomy, mild intermittent asthma , obesity, here today for physical exam. She has been following a low-cholesterol diet, walks her dogs for exercise but no regular cardio workout. She still has chronic heartburn, controlled with omeprazole and avoiding triggers for her heartburn , but it flares up once she stops taking the medication. She has never had an upper endoscopy, was supposed to have it done 2 years ago but had to cancel appointment as she has got . Has recurrent sores in vulvar area some times under breast and axillary are, diagnosed to have hidradenitis suppurativa in the past and was prescribed clindamycin gel which has been helping control occurrence, but lesions never completely resolve. Asthma is controlled, gets infrequent attacks, takes montelukast and cetirizine for her allergic rhinitis which has been helping. She has positive family history for Wong syndrome, tested negative for the mutation, but mother had colon cancer and patient states that she had a colonoscopy at [facility] 19 which came back negative, was told due have early colon cancer screening, starting at age 30. [facility], [facility] Medical History (Updated 01/30/24 @ 09:06 by Eugenie Franco MD) Impaired fasting glucose Vulval hidradenitis suppurativa History of vitamin D deficiency Hyperlipidemia Hx of ovarian cyst Positive test Vitamin D deficiency COVID-19 long hauler manifesting chronic dyspnea Chronic GERD Mild intermittent asthma Dysmenorrhea History of anal fissures Plantar wart Obesity (BMI 30-39.9) Allergic rhinitis Surgical History S/P laparoscopic cholecystectomy History of laparoscopic cholecystectomy Hx of colonoscopy History of wisdom tooth extraction Family History Father Depression CVD (cardiovascular disease) Myocardial infarction Mental health disorder Mother Wong syndrome Colon cancer Maternal Grandmother Wong syndrome Colon cancer Dermatomyositis Maternal Grandfather HTN (hypertension) Hypercholesterolemia Brother No problems noted. Social History Housing: Apartment Alcohol intake: current Alcohol intake frequency: holidays/special occasions only Alcohol type: wine Patient Tobacco Use Status: Never used Tobacco e-Cigarette/Vaping Use: Never Used Substance Use Type: Marijuana Current occupational status: employed Gender identity: Female Cognitive needs: No Hearing needs: No Vision needs: Yes Female Reproductive History Menstrual Age of Menarche: 11 Date of last menstrual period: 01/16/24 control method: condoms Other: She goes to [facility] for routine Pap and pelvic exam Questionnaire PHQ-9 Over the last 2 weeks, how often have you been bothered by any of the following problems? 1. Little interest or pleasure in doing things: not at all 2. Feeling down, depressed, or hopeless: not at all 3. Trouble falling or staying asleep, or sleeping too much: not at all 4. Feeling tired or having little energy: several days 5. Poor appetite or overeating: not at all 6. Feeling bad about yourself - or that you are a failure or have let yourself or your family down: not at all 7. Trouble concentrating on things, such as reading the newspaper or watching television: not at all 8. Moving or speaking so slowly that other people could have noticed. Or the opposite - being so fidgety or restless that you have been moving around a lot more than usual: not at all 9. Thoughts that you would be better off or of hurting yourself in some way: not at all Total score: 1 Depression Screening Interpretation: Negative Depression Screening Done: Yes 66822 - PHQ-9 Billing: Yes Source: Developed by Drs. Kwabena Bernabe, Marjorie Cooper, Jose Mcneill and colleagues, with an educational cari from [employer]. Thrive Questionnaire Date Thrive assessed: 01/30/24 I am a: Patient What is your living situation today?: I have a steady place to live Within the past 12 months, did the food you bought not last and you didn't have the money to get more?: Sometimes True Within the past 12 months, did you worry whether your food would run out before you got money to buy more?: Sometimes True Do you have trouble paying for medicines?: No Do you have trouble getting transportation to medical appointments?: No Do you have trouble paying your heating and electricity bill?: Yes Do you have trouble taking care of your child, family member or friend?: No Do you have trouble with day-to-day activities such as bathing, preparing meals, shopping, managing finances, etc.?: No Are you currently unemployed and looking for a job?: No Are you interested in more education?: No Please select the resources that you would like help with: Food and Utilities Currently or been in a relationship where the following occur: No concerns reported THRIVE Score: 3 AUDIT C Alcohol Use Questionnaire (AUDIT-C) 1. How often do you have a drink containing alcohol?: Monthly or less 2. How many drinks containing alcohol do you have on a typical day when you are drinking?: 1 or 2 3. How often do you have six or more drinks on one occasion?: Never Total Score: 1 AMANDA-7 AMB Questionnaire AMANDA-7 Date AMANDA - 7 assessed: 01/30/24 Feeling nervous, anxious, or on edge: 0 = Not at all Not being able to stop or control worryin = Not at all Worrying too much about different things: 0 = Not at all Trouble relaxin = Not at all Being so restless that it is hard to sit still: 0 = Not at all Becoming easily annoyed or irritable: 1 = Several days Feeling afraid as if something awful might happen: 0 = Not at all Total AMANDA-7 score (0-4 normal; 5-9 mild; 10-14 moderate; 15-21 severe): 1 Source: Developed by Drs. Kwabena Bernabe, Marjorie Cooper, Jose Mcneill and colleagues, with an educational cari from [employer]. AMANDA-7 Assessment Billing AMANDA-7 Assessment Tool: AMANDA-7 Assessment 23799 Review of Systems Const Denies chills, Denies difficulty sleeping, Denies fever(s), Denies malaise and Reports weight loss Eyes Details: Goes to [facility] for her routine eye exam Reports requires corrective lenses ENT Details: Dental caries, currently sees her dentist and is scheduled for root canal Reports no additional complaints Card Denies chest pain, Denies dyspnea and Denies dyspnea on exertion Resp Denies cough, Denies dyspnea, Denies dyspnea on exertion and Denies wheezing GI Reports as per HPI, Denies abdominal pain, Denies melena, Denies hematochezia, Denies change in bowel habits, Reports heartburn (Takes famotidine and omeprazole) and Reports diarrhea (When she eats anything fatty or greasy/fried foods) Denies abnormal vaginal bleeding, Denies hematuria, Denies difficulty voiding, Denies nocturia, Denies genital pruritis, Denies nipple discharge, Denies dysmenorrhea, Denies dysuria, Denies urinary incontinence, Denies urinary urgency and Denies vaginal discharge Musc Denies back pain and Denies limited range of motion Skin/Breast Reports as per HPI, Denies breast skin changes, Denies breast pain, Denies breast mass and Denies nipple discharge Neuro Denies focal weakness and Denies convulsions Psych Denies depression and Denies mood swings Endo Reports no additional complaints Sal/Lymph Reports no additional complaints Aller/Immun Reports seasonal rhinorrhea (Controlled with cetirizine and montelukast) and Denies wheezing Physical exam (Primary Care) Vital Signs: Last Vital Signs Pulse 82 01/30/24 08:07 BP 102/68 01/30/24 08:07 Pulse Ox 97 01/30/24 08:07 Oxygen Delivery Method Room Air 01/30/24 08:07 BMI result Body Mass Index 41.8 BMI Assessment/Plan discussion: High BMI High, discussed plan: lifestyle, weight reduction, dietary and physical activity Tobacco/Smoking Status: Tobacco use Status Tobacco use date assessed 01/30/24 01/30/24 08:11 Patient Tobacco Use Status Never used Tobacco 01/30/24 08:08 e-Cigarette/Vaping Use Never Used 01/30/24 08:08 PHQ-9: PHQ-9 Score PHQ-9: Total score 1 01/30/24 09:07 Depression Screening Interpretation: Negative Thrive Assessment: Date of Thrive Assessment Date Thrive assessed 01/30/24 01/30/24 08:08 Currently or been in a relationship where the following occur: No concerns reported Const General: comfortable and no acute distress Orientation/consciousness: patient oriented x3 HENMT Ears: hearing grossly normal bilaterally, external ears normal, TM's normal bilaterally and EAC's normal General nose exam: Normal external nose present and No nasal discharge present Mouth: oropharynx normal and moist mucous membranes Eyes General: appearance normal, both eyes and all related structures Conjunctivae: conjunctivae normal Pupils: Equal, round and reactive pupils present EOM: EOMs intact bilaterally Neck Other: Nonpalpable thyroid gland Neck: Yes full ROM, Yes no lymphadenopathy and Yes supple Chest Chest palpation & inspection: normal inspection of the chest Breast/axilla inspection: normal inspection of the breasts Breast/axilla palpation: normal palpation of the breasts Resp Effort & Inspection: normal respiratory effort and able to speak in complete sentences Auscultation: clear to auscultation bilaterally Cardio Rate: regular rate Rhythm: regular rhythm Heart sounds: S1 normal heart sound present and S2 normal heart sound present GI Inspection: Yes normal to inspection Palpation (GI): Soft to palpation, nontender and no masses Auscultation: normal bowel sounds General: Yes deferred (Goes to OBGYN at [facility] in [place]) Back/Spine/Pelvis Cervical Spine: cervical ROM normal Thoracic/Lumbar Spine: thoracic and lumbar spine normal to inspection Skin Other: Hyperpigmented flat lesions/scars on vulvar area and medial aspects of both thighs Neuro General: patient oriented x3, gait normal, moves all extremities, Normal light touch and pain sensation and no focal motor deficits Cranial nerves: Yes Equal, round and reactive pupils present Cognition (Neuro): normal cognition Gait exam (Neuro): Normal gait present Motor exam (neuro): 5/5 motor strength present throughout Extrem General: Yes normal to inspection, Yes full ROM, Yes no joint enlargement, Yes no clubbing, cyanosis or edema and Yes normal gait Psych Appearance: grossly normal and well kempt Mental Status: mental status grossly normal Speech and movement: Normal speech and movement present Affect: normal affect Office Procedures Flu Questionnaire Does the patient have a severe egg allergy?: No Does the patient have severe life threatening allergies?: No Does the patient have a fever or illness today?: No Has the patient ever had Guillain-[place] Syndrome?: No Has the patient ever had any past reaction to a flu shot?: No Immunizations Fluarix Triv [id number] (PF) 45 mcg (15 mcg x 3)/0.5 mL IM syringe Performing Provider: Eugenie Franco MD [place] [facility] Administered by: Dagmar Bower CMA on 01/30/24 08:52 Dose Route Admin Location Dispensed Lot Number Expiration Date [facility] Lining Closer 0.5 mL IM Right Deltoid 0.5 mL [id number] 10/07/24 [id number] [employer] VIS Given Date VIS Provided VIS Publication Date 01/30/24 Single Vaccine 20 Eligibility Eligibility Date Funding Source Not [facility] Eligible 01/30/24 Private Results Reviewed Results Reviewed: en: Magali Marcus Age/Sex: 28/F : 1995 Unit#: [id number] Attend Dr: Eugenie Franco MD Re01/27/24 Status: DEP [facility]F [facility] Disch: SPEC : [id number] ALISON: 01/27/24 STATUS: COMP REQ : [id number] RECD: 01/27/24-[address]: Eugenie Franco MD COMP: 01/27/241227 ENTERED: 01/27/[address] [facility] [address]: ORDERED: Glu Fasting, AST, ALT, Lipid Panel, Vitamin D 25-OH Test Result Flag Reference FBS 102 H 60-99 mg/dL A fasting glucose from 100-125 mg/dl is considered impaired (pre-diabetes). AST (GOT) 17 5-31 U/L ALT (GPT) 18 0-31 U/L Triglyceride 101 <150 mg/dL Desirable Triglyceride: less than 150 mg/dL Borderline High Triglyceride 150-199 mg/dL High Triglyceride: 200-499 mg/dL Very High Triglyceride: greater than or equal to 5OO mg/dL Cholesterol 189 <200 mg/dL Desirable Cholesterol: less than 200 mg/dL Borderline High Cholesterol: 200-239 mg/dL High Cholesterol: greater than 239 mg/dL LDL Calculated 128 H <100 mg/dL Desirable LDL: less than 100 mg/dL Near Optimal/Above Optimal LDL: 110-129 mg/dL Borderline High LDL: 130-159 mg/dL High LDL: 160-189 mg/dL Very High LDL: greater than or equal to 190 mg/dL HDL 41 >40 mg/dL Desirable HDL: greater than 40 mg/dL Note: This HDL assay may give artificially low results in patients with liver disease. Vit D 25-OH Tot 41.3 >30 ng/mL Health Based Reference Values* < 20 ng/mL Deficient 20-30 ng/mL Insufficient > 30 ng/mL Sufficient Coding Level of Care Code Est Pt Prev Care 18-39y(43892) Diagnoses Annual visit for general adult medical examination with abnormal findings Z00.01 Chronic gastritis without bleeding, unspecified gastritis type K29.50 Chronicity: chronic Gastritis bleeding: without bleeding Gastritis type: unspecified gastritis Chronic GERD K21.9 Vulval hidradenitis suppurativa L73.2 Obesity, morbid, BMI 40.0-49.9 E66.01 Mild intermittent asthma without complication J45.20 Asthma complication type: uncomplicated Seasonal allergic rhinitis, unspecified trigger J30.2 Allergic rhinitis seasonality: seasonal Allergic rhinitis trigger: unspecified Advanced directives, counseling/discussion Z71.89 Impaired fasting glucose R73.01 Additional Codes AMANDA-7 Assessment Billing - AMANDA-7 Assessment Tool: AMANDA-7 Assessment 94952 ([id number]) Assessment & Plan Assessment & Plan (1) Annual visit for general adult medical examination with abnormal findings: Code(s): Z00.01 - Encounter for general adult medical examination with abnormal findings Plan: Recent fasting lab results reviewed wit patient which showed fasting lipids within normal limits, but fasting glucose in the prediabetic range. Continue with regular dental visit every 6 months and regular eye exams, at least every 2 years, goes to [facility]. Take adequate calcium in diet and vitamin-D 3 at 2000 IU per cap once a day, in addition to weight-bearing exercises to help maintain good muscle tone and weight control. Instructed to do self-breast exam, and recommended to get yearly mammogram, starting at age 40. Has had 2 COVID vaccine does not want to get the booster, flu vaccine given today, up-to-date with her Tdap. The patient reminded to get a repeat screening colonoscopy at age 30 due to positive family history for colon cancer (2) Gastritis: Code(s): K29.70 - Gastritis, unspecified, without bleeding Category: Medical Qualifiers: Chronicity: chronic Gastritis bleeding: without bleeding Gastritis type: unspecified gastritis Qualified Code(s): K29.50 - Unspecified chronic gastritis without bleeding Plan: Seen on upper GI series done earlier this year. Continues to take omeprazole and famotidine, with recurring if she stops taking the medication, referred to GI Clinic further evaluation management (3) Chronic GERD: Code(s): K21.9 - Gastro-esophageal reflux disease without esophagitis Category: Medical Plan: Currently takes omeprazole and famotidine, heartburn recurs once she stops taking the medication . referred to GI Clinic for further evaluation manage (4) Vulval hidradenitis suppurativa: Code(s): L73.2 - Hidradenitis suppurativa Category: Medical Plan: Keep areas clean and dry at all times, continue using clindamycin gel as directed. Referred to dermatology for further evaluation and management (5) Obesity, morbid, BMI 40.0-49.9: Code(s): E66.01 - Morbid (severe) obesity due to excess calories Category: Medical Plan: Continue with adherence to healthy eating habits, recommended doing cardio exercises at least 15 minutes every day,, and do weight bearing exercises which helps with weight loss. Patient not interested in doing any bariatric surgery or starting weight loss medication (6) Mild intermittent asthma: Code(s): J45.20 - Mild intermittent asthma, uncomplicated Category: Medical Qualifiers: Asthma complication type: uncomplicated Qualified Code(s): J45.20 - Mild intermittent asthma, uncomplicated Plan: Has infrequent exacerbations, currently taking albuterol inhaler 2 inhalations every 6 hours as needed for episodes of bronchospasm and wheezing.. Flu shot given today (7) Allergic rhinitis: Code(s): J30.9 - Allergic rhinitis, unspecified Category: Medical Qualifiers: Allergic rhinitis seasonality: seasonal Allergic rhinitis trigger: unspecified Qualified Code(s): J30.2 - Other seasonal allergic rhinitis Plan: Controlled with taking montelukast and cetirizine (8) Advanced directives, counseling/discussion: Code(s): Z71.89 - Other specified counseling Plan: Initiated the conversation about Advanced Directives. Advanced Directives help patients prepare for current and future decisions about their medical treatment and place of care. Discussed with patient that it is a process where a patients current condition and prognosis are reviewed, their wishes for information regarding their illness are elicited, and likely medical dilemmas are presented and options discussed. Healthcare proxy form completed today. The form can be amended as needed, reviewed yearly and make changes as needed (9) Impaired fasting glucose: Code(s): R73.01 - Impaired fasting glucose Category: Medical Plan: Your previous fasting blood sugars were elevated above 100 mg/dL. Impaired glucose metabolism increases the risk for developing diabetes mellitus type 2, as well as heart attack and stroke later on. Lifestyle changes that promotes weight loss, healthy eating habits, and regular exercise are important, and can prevent the progression to diabetes Orders: Orders Influenza [id number] Immunization Today Z23 - Encounter for immunization Referrals Dermatology Referral L73.2 - Hidradenitis suppurativa Gastroenterology Referral K21.9 - Gastro-esophageal reflux disease without esophagitis, K29.70 - Gastritis, unspecified, without bleeding
== END 2024-01-30 11:57 | disposition home or self-care (01) ==
PROVIDERS: PCP Internal Medicine; Visit Provider Internal Medicine
DX: Z00.01 Encounter for general adult medical examination with abnormal findings (principal); K29.50 Unspecified chronic gastritis without bleeding; E66.01 Morbid (severe) obesity due to excess calories; Z68.41 Body mass index [BMI] 40.0-44.9, adult; K21.9 Gastro-esophageal reflux disease without esophagitis; L73.2 Hidradenitis suppurativa; J45.20 Mild intermittent asthma, uncomplicated; J30.2 Other seasonal allergic rhinitis; Z71.89 Other specified counseling; R73.01 Impaired fasting glucose

== ENCOUNTER → 2024-01-30 08:04 | Outpatient (BNVA) | payer OTHER, SELFPAY | PROVIDERS: PCP Internal Medicine; Visit Provider Internal Medicine | DX: Z00.01 Encounter for general adult medical examination with abnormal findings (principal); K29.50 Unspecified chronic gastritis without bleeding; K21.9 Gastro-esophageal reflux disease without esophagitis; L73.2 Hidradenitis suppurativa; E66.01 Morbid (severe) obesity due to excess calories; J45.20 Mild intermittent asthma, uncomplicated; J30.2 Other seasonal allergic rhinitis; R73.01 Impaired fasting glucose; Z79.899 Other long term (current) drug therapy; Z71.89 Other specified counseling; Z23 Encounter for immunization | CPT/HCPCS: 90471; 90656; 96127; 99395 ==

== ENCOUNTER 2024-06-07 13:31 | Outpatient (AMB) | payer OTHER, SELFPAY ==
[2024-06-07 13:34] VITALS: BP 136/78; PULSE 84; O2SAT 100; BMI 41.5
--- NOTE | 2024-06-07 13:34 | MHC.OFFVIS ---
Vital Signs 06/07/24 13:34 Height 5 ft 3 in Weight 234 lb 9.149 oz BMI 41.5 BP 136/78 Blood Pressure Location Rt brachial Position Sitting Pulse 84 Pulse Source Pulse Oximeter Pulse Oximetry (%) 100 Oxygen Delivery Method Room Air Intake Visit Reasons: Follow up GERD/previously PT Intake Note: ESTABLISHED PATIENT for GERD + IBS mgmt. CARLITOS 12/2021. Re-Est Chief Complaint; C/O persistent GERD sx w/ epigastric pain. Pt states that she is actively attempting to avoid triggers and recently had BA FL done per PCP. Finds that they are very dependent on omeprazole and famotidine and if they are not taking the Rxs they find their sx are intolerable. Pt does acknowledge that she was supposed to get H Pylori Stool Test done at last visit but was never able to get this done. Denies additional concerns. 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 So this is why she she did not have the radiology study. She did not do well on the protonix so she is back to the omeprazole. I advise her to use TUMS as her progresses. Her diarrhea has been less often. She had trouble keeping up with the qid dosing, so I eduate her that she can use it as needed. She is avoiding fatty foods. She saw the surgeon, and she can not have a cholecystectomy r/t above. It is also not worth doing the H pylori test since we would not be able to treat with antibiotics at this time. She is due to deliver in August so will get her back in 6 months which is June and work around her due date and other doctors appointments as needed. I did advise her to keep Tums on hand and that her industrial millwright may want to switch her from proton pump inhibitor to an H2 at some point in her depending on their judgment. (2) Chronic GERD: Code(s): K21.9 - Gastro-esophageal reflux disease without esophagitis (3) Gallstones: Code(s): K80.20 - Calculus of gallbladder without cholecystitis without obstruction (4) Morbid (severe) obesity due to excess calories: Code(s): E66.01 - Morbid (severe) obesity due to excess calories Medications: Refilled omeprazole 40 mg PO DAILY 90 days 90 caps 2RF TODAY'S VISIT Patient is here today for requested visit. Seen in the past by Ashley Burleson NP. Never was able to get H pylori testing done. Patient was had a baby and has not followed up for while. Her symptoms right now are getting worse. She continues to have epigastric pain, abdominal bloating. Reports acid reflux is getting worse as well as she is starting to get dyspepsia without dysphagia or odynophagia. Patient denies any nausea or vomiting. Denies any melena, hematochezia, unintentional weight loss or ribbon like stools. Patient is trying to figure out which food causing her to have worsening symptoms. Patient denies any other GI concerning symptoms. PCP send patient for upper GI series last year and possible gastritis noted no reflux seen. [facility] Medical History Impaired fasting glucose Vulval hidradenitis suppurativa History of vitamin D deficiency Hyperlipidemia Hx of ovarian cyst Positive test Vitamin D deficiency COVID-19 long hauler manifesting chronic dyspnea Chronic GERD Mild intermittent asthma Dysmenorrhea History of anal fissures Plantar wart Obesity (BMI 30-39.9) Allergic rhinitis Surgical History S/P laparoscopic cholecystectomy History of laparoscopic cholecystectomy Hx of colonoscopy History of wisdom tooth extraction Family History Father Depression CVD (cardiovascular disease) Myocardial infarction Mental health disorder Mother Wong syndrome Colon cancer Maternal Grandmother Wong syndrome Colon cancer Dermatomyositis Maternal Grandfather HTN (hypertension) Hypercholesterolemia Brother No problems noted. Social History Housing: Apartment Alcohol intake: current Alcohol intake frequency: holidays/special occasions only Alcohol type: wine Patient Tobacco Use Status: Never used Tobacco e-Cigarette/Vaping Use: Never Used Substance Use Type: Marijuana Current occupational status: employed Gender identity: Female Cognitive needs: No Hearing needs: No Vision needs: Yes Female Reproductive History Menstrual Age of Menarche: 11 Review of Systems Const Denies weight gain and Denies weight loss ENT Reports no additional complaints, Denies dysphagia and Denies odynophagia Card Reports no additional complaints Resp Reports no additional complaints GI Reports abdominal pain (Epigastric), Denies belching, Denies melena, Reports bloating, Denies change in bowel habits, Denies dysphagia, Denies excessive flatus, Denies dyspepsia, Reports heartburn, Denies diarrhea, Denies loose stools, Denies nausea, Denies odynophagia and Denies vomiting Reports no additional complaints Musc Reports no additional complaints Neuro Reports no additional complaints Psych Reports no additional complaints Endo Reports no additional complaints Physical Exam Vital Signs: Last Vital Signs Pulse 84 06/07/24 13:34 BP 136/78 06/07/24 13:34 Pulse Ox 100 06/07/24 13:34 Oxygen Delivery Method Room Air 06/07/24 13:34 BMI result Body Mass Index 41.5 Const General: healthy appearing and no acute distress Nutritional Appearance: obese Orientation/consciousness: patient oriented x3 Resp Effort & Inspection: normal respiratory effort, able to speak in complete sentences, no tracheal deviation and symmetric chest movement Auscultation: clear to auscultation bilaterally Cardio Rate: regular rate GI Inspection: Yes normal to inspection, No distended and Yes obesity Palpation (GI): Soft to palpation, not firm, nontender and No hepatosplenomegaly present Auscultation: normal bowel sounds General: Yes no CVA tenderness Back/Spine/Pelvis Back: no CVA tenderness Skin General skin exam: elasticity normal, turgor normal and dry skin Neuro General: patient oriented x3 Psych Appearance: grossly normal Mental Status: mental status grossly normal Results Reviewed Results Reviewed: UPPER GI SERIES 09/14/2023 IMPRESSION: 1. Thickened appearance of the gastric rugal folds that suggests gastritis. Otherwise, unremarkable upper GI series Assessment & Plan Assessment & Plan (1) Postprandial epigastric pain: Code(s): R10.13 - Epigastric pain (2) Chronic GERD: Code(s): K21.9 - Gastro-esophageal reflux disease without esophagitis Category: Medical (3) Postprandial abdominal bloating: Code(s): R14.0 - Abdominal distension (gaseous) Plan Patient will hold omeprazole for now and will start taking H2 dariel. Will start her on Pepcid twice a day and she can return for H pylori breath test. Will check transglutaminase to rule out celiac, check lipase for chronic pancreatitis, repeat liver panel, vitamin-D, B12 and folate. After breath test patient can go back in start taking omeprazole in the morning. In addition she can try to take famotidine at bedtime. Patient was encouraged to increase fluid intake and activity to promote better bowel motility. Avoid lactose. GERD precautions. Discussed also with patient low FODMAP diet. List of food recommended as well as list of food to avoid given to patient. This hopefully will eliminate her symptoms of bloating. Patient was encouraged to make sure that she feels like she empties her bowels completely if she will have trouble moving her bowels to call our office. May also try [id number] MiraLax or senna. Follow-up in the office in 6 weeks. Patient is agreeable to current plan of care verbalizes understanding of instructions. She was given the opportunity to ask questions and all questions answered. Thank you for allowing me to participate in her care Orders: Orders Transglutaminase IgA 06/12/24 R10.9 - Unspecified abdominal pain Liver Panel 06/12/24 R74.01 - Elevation of levels of liver transaminase levels Vitamin D 25-OH (D2 and D3) 06/12/24 E55.9 - Vitamin D deficiency, unspecified Vitamin B12 and Folate 06/12/24 R19.7 - Diarrhea, unspecified H Pylori Breath Test 06/07/24 K21.9 - Gastro-esophageal reflux disease without esophagitis Lipase 06/12/24 R10.9 - Unspecified abdominal pain Medications: New famotidine (Pepcid) 20 mg PO BID 40 tabs 0RF K29.70 - Gastritis, unspecified, without bleeding Coding Level of Care Code Est Pt Level 4 (70255) Complex EM visit Add On G2211 Diagnoses Postprandial epigastric pain R10.13 Chronic GERD K21.9 Postprandial abdominal bloating R14.0 Time Spent (min) 45 Comment 30 minutes spent with patient and additional 15 minutes spent reviewing her records
--- OUTSIDE RECORDS SUMMARY | 2024-06-07 15:40 | XMS_ITS | Clinical Summary ---
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 Role Phone Unavailable Primary Care Provider Unavailabl e Social History Tobacco Use Types Packs/Day Years Used Date Smoking Tobacco: Never Assessed Comments Unknown Sex and Gender Information Value Date Recorded Sex Assigned at Not on file Legal Sex Female 8:45 PM EST Gender Identity Not on file Sexual Orientation Not on file Plan of Treatment Health Maintenance Due Date Last Done Comments DTaP,Tdap,and Td Vaccines (1 - Tdap) 06/11/2014 Hepatitis B Vaccines (1 of 3 - 19+ 3-dose series) 06/11/2014 Cervical Cancer Screening: P ap Smear 06/11/2016 Depression Screening 03/12/2022 HIV Screening 03/12/2022 Hepatitis C Screening 03/12/2022 Social Influencers of Health Screening 03/12/2022 COVID-19 Vaccine (2023-2 5 season) 2023 Influenza Vaccine (#1) 2023 HIB Vaccines Aged Out No longer eligi ble based on patient's age to complete this topic HPV Vaccines Aged Out No longer eligi ble based on patient's age to complete this topic Hepatitis A Vaccines Aged Out No long er eligible based on patient's age to complete this topic IPV Vaccines Aged Out No longer eligi ble based on patient's age to complete this topic MMR Vaccines Aged Out No longer eligi ble based on patient's age to complete this topic Meningococcal ACWY Vaccine Aged Out N o longer eligible based on patient's age to complete this topic Meningococcal B Vacine Aged Out No lo nger eligible based on patient's age to complete this topic Pneumococcal Vaccine: Pediat rics (0 to 5 Years) and At-Risk Patients (6 to 64 Years) Aged Out No longer eligible b ased on patient's age to complete this topic RSV Immunization Patients Un martín 20 months Aged Out No longer eligible b ased on patient's age to complete this topic Varicella Vaccines Aged Out No longer eligible based on patient's age to complete this topic
== END 2024-06-07 14:08 | disposition home or self-care (01) ==
PROVIDERS: PCP Internal Medicine; Visit Provider Nurse Practitioner Family
DX: R10.13 Epigastric pain (principal); K21.9 Gastro-esophageal reflux disease without esophagitis; R14.0 Abdominal distension (gaseous)
CPT/HCPCS: 99214; G2211

== ENCOUNTER → 2024-06-07 13:31 | Outpatient (BNVA) | payer OTHER, SELFPAY | PROVIDERS: PCP Internal Medicine; Visit Provider Nurse Practitioner Family | DX: K21.9 Gastro-esophageal reflux disease without esophagitis (principal); R10.13 Epigastric pain; R14.0 Abdominal distension (gaseous) | CPT/HCPCS: 99212 ==

== ENCOUNTER 2024-06-12 14:11 | Outpatient (REF) | payer OTHER, SELFPAY ==
--- OUTSIDE RECORDS SUMMARY | 2024-06-12 17:05 | XMS_ITS | Clinical Summary ---
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
[2024-06-12 17:11] LABS: Alanine Aminotransferase 13 U/L (0-31); Alkaline Phosphatase 70 U/L (39-117); Aspartate Amino Transferase 16 U/L (5-31); Bilirubin Direct < 0.2 mg/dL (0.0-0.5); Bilirubin Total 0.2 mg/dL (0.0-1.0); Folate 9.7 ng/mL (> or = 4.0); Lipase 25 U/L (8-78); Total Protein 7.6 g/dL (6.5-8.0); Vitamin B12 366 pg/mL (200-900)
[2024-06-13 20:29] LABS: Transglutaminase IgA <1.0 U/mL
[2024-06-17 16:33] LABS: Vitamin D 25-OH, D2 <4 ng/mL; Vitamin D 25-OH, D3 18 ng/mL; Vitamin D 25-OH, Total 18 ng/mL (30-100)
== END 2024-06-12 14:12 | disposition home or self-care (01) ==
LOC: HO.HMGCLDS 14:11
PROVIDERS: PCP Internal Medicine; Visit Provider Nurse Practitioner Family
DX: R10.9 Unspecified abdominal pain (principal); R74.01 Elevation of levels of liver transaminase levels; R19.7 Diarrhea, unspecified; E55.9 Vitamin D deficiency, unspecified
CPT/HCPCS: 36415; 80076; 82306; 82607; 82746; 83690; 86364

== ENCOUNTER → 2024-06-24 13:31 | Outpatient (BNVA) | payer OTHER, SELFPAY | PROVIDERS: PCP Internal Medicine; Visit Provider Nurse Practitioner Family ==

== ENCOUNTER 2024-06-24 13:55 | Outpatient (REF) | payer OTHER, SELFPAY ==
[2024-06-27 11:45] LABS: H Pylori Breath Test Negative (Negative)
== END 2024-06-24 13:56 | disposition home or self-care (01) ==
LOC: HO.LNP 13:55
PROVIDERS: Visit Provider Nurse Practitioner Family
DX: K21.9 Gastro-esophageal reflux disease without esophagitis (principal)
CPT/HCPCS: 83013

== ENCOUNTER 2025-02-24 08:50 | Outpatient (AMB) | payer OTHER, SELFPAY ==
[2025-02-24 08:56] VITALS: BP 92/60; PULSE 77; RESP 16; TEMP 37.1; O2SAT 99; BMI 39.5
--- NOTE | 2025-02-24 08:56 | A.OFFPC_ITS ---
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[employer] Required: No Allergies amoxicillin (AMOXICILLIN) Allergy (Unknown, Verified 02/24/25 09:33) RASH, hives azithromycin (AZITHROMYCIN) Adverse Reaction (Unknown, Verified 02/24/25 09:33) N/V/D Penicillins (PCN) Adverse Reaction (Verified 02/24/25 09:33) Diarrhea Medication List - Last Reconciled 02/24/25 by Eugenie Franco MD acetaminophen (Tylenol Extra Strength) 500 mg PO Q6H PRN albuterol sulfate 90 mcg/actuation 2 puffs inhalation Q6H cetirizine (All Day Allergy (cetirizine)) 10 mg PO DAILY famotidine 40 mg PO BID montelukast 10 mg PO DAILY Tobacco use date assessed: 02/24/25 Dental Screening Dental Screen Date: 02/24/25 Did you have a dental visit in the last 12 months?: Yes Did you have a dental problem in the last 6 months where you did not have access to dental care?: No Was dental information given to patient?: Patient has dentist HPI Annual PE HPI Details The patient is a 29-year-old female presenting today for a physical exam . The patient's second was recently terminated after testing revealed the fetus had Trisomy 21. An initial NIPT blood test showed a 59% chance of Down syndrome, which was later confirmed by amniocentesis. The patient reports that the first attempt at amniocentesis was a dry tap, requiring a second procedure. There is no family history of Down syndrome. Since the procedure, she has experienced light, persistent bleeding. She has one healthy 2-year-old son and plans to try to conceive again in a few months. The patient reports a new, intermittent issue with an odor and itching in her umbilicus. Regarding weight management, she weighed 234 lbs in May, got down to 214 lbs before her recent , and is now 223 lbs. The patient smokes marijuana but denies tobacco use. Her past medical history includes asthma, controlled on montelukast, uses Albuterol inhaler as needed . She has GERD controlled with taking Famotidine 40 mg BID. She has a history of cholecystectomy and reports bloating if she eats fatty foods. She has recurrent boils , diagnosed with hidradenitis suppurativa in vulvar area, but lost a previous dermatology referral, requesting another referral to be placed. She has family history of Wong syndrome, had one colonoscopy at age 18 or 19 and was informed she does not carry the gene . Her last Pap smear was normal. She declined getting recommended influenza and pneumonia vaccine. [facility] Medical History Vitamin D deficiency History of Impaired fasting glucose Vulval hidradenitis suppurativa History of vitamin D deficiency Hyperlipidemia Hx of ovarian cyst Positive test COVID-19 long hauler manifesting chronic dyspnea Chronic GERD Mild intermittent asthma Dysmenorrhea History of anal fissures Plantar wart Obesity (BMI 30-39.9) Allergic rhinitis Surgical History S/P laparoscopic cholecystectomy History of laparoscopic cholecystectomy Hx of colonoscopy History of wisdom tooth extraction Family History Father Depression CVD (cardiovascular disease) Myocardial infarction Mental health disorder Mother Wong syndrome Colon cancer Maternal Grandmother Wong syndrome Colon cancer Dermatomyositis Maternal Grandfather HTN (hypertension) Hypercholesterolemia Brother No problems noted. Social History Housing: Apartment Alcohol intake: current Alcohol intake frequency: holidays/special occasions only Alcohol type: wine Patient Tobacco Use Status: Never used Tobacco e-Cigarette/Vaping Use: Never Used Substance Use Type: Marijuana Current occupational status: employed Gender identity: Female Cognitive needs: No Hearing needs: No Vision needs: Yes Female Reproductive History Menstrual Age of Menarche: 11 Questionnaire PHQ-9 Over the last 2 weeks, how often have you been bothered by any of the following problems? 1. Little interest or pleasure in doing things: not at all 2. Feeling down, depressed, or hopeless: not at all 3. Trouble falling or staying asleep, or sleeping too much: not at all 4. Feeling tired or having little energy: not at all 5. Poor appetite or overeating: several days 6. Feeling bad about yourself - or that you are a failure or have let yourself or your family down: not at all 7. Trouble concentrating on things, such as reading the newspaper or watching television: not at all 8. Moving or speaking so slowly that other people could have noticed. Or the opposite - being so fidgety or restless that you have been moving around a lot more than usual: not at all 9. Thoughts that you would be better off or of hurting yourself in some way: not at all Total score: 1 Depression Screening Interpretation: Negative Depression Screening Done: Yes 13766 - PHQ-9 Billing: Yes Source: Developed by Drs. Kwabena Bernabe, Marjorie Cooper, Jose Mcneill and colleagues, with an educational cari from [employer]. Thrive Questionnaire Date Thrive assessed: 02/24/25 I am a: Patient What is your living situation today?: I have a steady place to live Within the past 12 months, did the food you bought not last and you didn't have the money to get more?: I choose not to answer this question Within the past 12 months, did you worry whether your food would run out before you got money to buy more?: I choose not to answer this question Do you have trouble paying for medicines?: No Do you have trouble getting transportation to medical appointments?: No Do you have trouble paying your heating and electricity bill?: No Do you have trouble taking care of your child, family member or friend?: No Do you have trouble with day-to-day activities such as bathing, preparing meals, shopping, managing finances, etc.?: No Are you currently unemployed and looking for a job?: No Are you interested in more education?: No Please select the resources that you would like help with: None Currently or been in a relationship where the following occur: No concerns reported THRIVE Score: 0 AUDIT C Alcohol Use Questionnaire (AUDIT-C) 1. How often do you have a drink containing alcohol?: Monthly or less 2. How many drinks containing alcohol do you have on a typical day when you are drinking?: 1 or 2 3. How often do you have six or more drinks on one occasion?: Never Total Score: 1 Score Reviewed/Action Taken: Yes AMANDA-7 AMB Questionnaire AMANDA-7 Date AMANDA - 7 assessed: 02/24/25 Feeling nervous, anxious, or on edge: 0 = Not at all Not being able to stop or control worryin = Not at all Worrying too much about different things: 1 = Several days Trouble relaxin = Not at all Being so restless that it is hard to sit still: 0 = Not at all Becoming easily annoyed or irritable: 1 = Several days Feeling afraid as if something awful might happen: 0 = Not at all Total AMANDA-7 score (0-4 normal; 5-9 mild; 10-14 moderate; 15-21 severe): 2 Source: Developed by Drs. Kwabena Bernabe, Marjorie Cooper, Jose Mcneill and colleagues, with an educational cari from [employer]. AMANDA-7 Assessment Billing AMANDA-7 Assessment Tool: AMANDA-7 Assessment 57895 Review of Systems Const Denies chills, Denies difficulty sleeping, Denies fever(s), Denies malaise and Reports weight loss Eyes Details: Goes to [facility] for her routine eye exam Reports requires corrective lenses ENT Details: Dental caries, currently sees her dentist and is scheduled for root canal Card Denies chest pain, Denies dyspnea and Denies dyspnea on exertion Resp Denies cough, Denies dyspnea, Denies dyspnea on exertion and Denies wheezing GI Denies abdominal pain, Denies melena, Denies hematochezia, Denies change in bowel habits, Reports heartburn (Takes famotidine and omeprazole) and Reports diarrhea (When she eats anything fatty or greasy/fried foods) Denies nipple discharge Musc Denies back pain and Denies limited range of motion Skin/Breast Denies breast skin changes, Denies breast pain, Denies breast mass and Denies nipple discharge Neuro Denies focal weakness and Denies convulsions Psych Denies depression and Denies mood swings Endo Reports no additional complaints Sal/Lymph Reports no additional complaints Aller/Immun Reports seasonal rhinorrhea (Controlled with cetirizine and montelukast) and Denies wheezing Physical exam (Primary Care) Vital Signs: Last Vital Signs Temp 98.7 F 02/24/25 08:56 Pulse 77 02/24/25 08:56 Resp 16 02/24/25 08:56 BP 92/60 02/24/25 08:56 Pulse Ox 99 02/24/25 08:56 Oxygen Delivery Method Room Air 02/24/25 08:56 BMI result Body Mass Index 39.5 BMI Assessment/Plan discussion: High BMI High, discussed plan: lifestyle, weight reduction, dietary and physical activity Tobacco/Smoking Status: Tobacco use Status Tobacco use date assessed 02/24/25 02/24/25 09:01 Patient Tobacco Use Status Never used Tobacco 02/24/25 09:01 e-Cigarette/Vaping Use Never Used 02/24/25 09:01 PHQ-9: PHQ-9 Score PHQ-9: Total score 1 03/02/25 21:17 Depression Screening Interpretation: Negative Thrive Assessment: Date of Thrive Assessment Date Thrive assessed 02/24/25 02/24/25 09:01 Currently or been in a relationship where the following occur: No concerns reported Const General: comfortable and no acute distress Orientation/consciousness: patient oriented x3 HENMT Ears: hearing grossly normal bilaterally, external ears normal, TM's normal bilaterally and EAC's normal General nose exam: Normal external nose present Mouth: oropharynx normal and moist mucous membranes Eyes General: appearance normal, both eyes and all related structures Conjunctivae: conjunctivae normal Pupils: Equal, round and reactive pupils present EOM: EOMs intact bilaterally Neck Other: Nonpalpable thyroid gland Neck: Yes full ROM, Yes no lymphadenopathy and Yes supple Chest Chest palpation & inspection: normal inspection of the chest Breast/axilla inspection: normal inspection of the breasts Breast/axilla palpation: normal palpation of the breasts Resp Effort & Inspection: normal respiratory effort and able to speak in complete sentences Auscultation: clear to auscultation bilaterally Cardio Rate: regular rate Rhythm: regular rhythm Heart sounds: S1 normal heart sound present and S2 normal heart sound present GI Inspection: Yes normal to inspection Palpation (GI): Soft to palpation, nontender and no masses Auscultation: normal bowel sounds General: Yes deferred (Goes to OBGYN at [facility] in [place]) Back/Spine/Pelvis Cervical Spine: cervical ROM normal Thoracic/Lumbar Spine: thoracic and lumbar spine normal to inspection Skin Other: Hyperpigmented flat lesions/scars on vulvar area and medial aspects of both thighs Neuro General: patient oriented x3, gait normal, moves all extremities, Normal light touch and pain sensation and no focal motor deficits Cranial nerves: Yes Equal, round and reactive pupils present Cognition (Neuro): normal cognition Gait exam (Neuro): Normal gait present Motor exam (neuro): 5/5 motor strength present throughout Extrem General: Yes normal to inspection, Yes full ROM, Yes no joint enlargement, Yes no clubbing, cyanosis or edema and Yes normal gait Psych Appearance: grossly normal and well kempt Mental Status: mental status grossly normal Speech and movement: Normal speech and movement present Affect: normal affect Coding Level of Care Code Est Pt Prev Care 18-39y(11946) Diagnoses Seasonal allergic rhinitis, unspecified trigger J30.2 Allergic rhinitis seasonality: seasonal Allergic rhinitis trigger: unspecified Obesity, morbid, BMI 40.0-49.9 E66.01 Mild intermittent asthma without complication J45.20 Asthma complication type: uncomplicated Chronic GERD K21.9 Vitamin D deficiency E55.9 Impaired fasting glucose R73.01 Vulval hidradenitis suppurativa L73.2 Annual visit for general adult medical examination with abnormal findings Z00.01 Additional Codes AMANDA-7 Assessment Billing - AMANDA-7 Assessment Tool: AMANDA-7 Assessment 44775 ([id number]) PHQ-9 - 64724 - PHQ-9 Billing: Yes ([id number]) Assessment & Plan Assessment & Plan (1) Allergic rhinitis: Code(s): J30.9 - Allergic rhinitis, unspecified Category: Medical Qualifiers: Allergic rhinitis seasonality: seasonal Allergic rhinitis trigger: unspecified Qualified Code(s): J30.2 - Other seasonal allergic rhinitis Plan: Takes montelukast and cetirizine (2) Obesity, morbid, BMI 40.0-49.9: Code(s): E66.01 - Morbid (severe) obesity due to excess calories Category: Medical Plan: Recommended focusing on improving health instead of dieting. Mediterranean diet is a healthy diet that helps, limit food high in fat, sugar, and calories. Eat slowly, pay attention to portion sizes, plan your meals ahead of time, start regular physical activity, at least 150 minutes of moderate intensity exercise, or 90 minutes per week of vigorous exercise. (3) Mild intermittent asthma: Code(s): J45.20 - Mild intermittent asthma, uncomplicated Category: Medical Qualifiers: Asthma complication type: uncomplicated Qualified Code(s): J45.20 - Mild intermittent asthma, uncomplicated Plan: Currently using albuterol inhaler rarely, continued on montelukast, declined recommended flu and pneumonia vaccine (4) Chronic GERD: Code(s): K21.9 - Gastro-esophageal reflux disease without esophagitis Category: Medical Plan: Followed at [facility], currently on famotidine 40 mg twice a day (5) Vitamin D deficiency: Code(s): E55.9 - Vitamin D deficiency, unspecified Category: Medical Plan: Advised to start taking [id number] vitamin D3 2000 units daily (6) Impaired fasting glucose: Code(s): R73.01 - Impaired fasting glucose Category: Medical Plan: Your previous fasting blood sugars were elevated above 100 mg/dL. Impaired glucose metabolism increases the risk for developing diabetes mellitus type 2, as well as heart attack and stroke later on. Lifestyle changes that promotes weight loss, healthy eating habits, and regular exercise are important, and can prevent the progression to diabetes (7) Vulval hidradenitis suppurativa: Code(s): L73.2 - Hidradenitis suppurativa Category: Medical Plan: Dermatology consult ordered (8) Annual visit for general adult medical examination with abnormal findings: Code(s): Z00.01 - Encounter for general adult medical examination with abnormal findings Plan: Will check appropriate labs. Recommended dental visit every 6 months and regular eye exams, at least every 2 years. Take adequate calcium in diet and vitamin-D 3 at 2000 IU per cap once a day, in addition to weight-bearing exercises to help maintain good muscle tone and weight control. Instructed to do self-breast exam, and recommended to get yearly mammogram, starting at age 40. Goes to [facility] for her routine Pap and pelvic exam. Declined recommended flu and pneumonia vaccine. Orders: Orders Vitamin D 25-OH Total 02/24/25 E55.9 - Vitamin D deficiency, unspecified, E66.01 - Morbid (severe) obesity due to excess calories, J45.20 - Mild intermittent asthma, uncomplicated, K21.9 - Gastro-esophageal reflux disease without esophagitis, L73.2 - Hidradenitis suppurativa, R73.01 - Impaired fasting glucose, Z00.01 - Encounter for general adult medical examination with abnormal findings Aspartate Amino Transferase 02/24/25 E55.9 - Vitamin D deficiency, unspecified, E66.01 - Morbid (severe) obesity due to excess calories, J45.20 - Mild intermittent asthma, uncomplicated, K21.9 - Gastro-esophageal reflux disease without esophagitis, L73.2 - Hidradenitis suppurativa, R73.01 - Impaired fasting glucose, Z00.01 - Encounter for general adult medical examination with abnormal findings Lipid Panel 02/24/25 E55.9 - Vitamin D deficiency, unspecified, E66.01 - Morbid (severe) obesity due to excess calories, J45.20 - Mild intermittent asthma, uncomplicated, K21.9 - Gastro-esophageal reflux disease without esophagitis, L73.2 - Hidradenitis suppurativa, R73.01 - Impaired fasting glucose, Z00.01 - Encounter for general adult medical examination with abnormal findings Complete Blood Count Auto Diff 02/24/25 E55.9 - Vitamin D deficiency, unspecified, E66.01 - Morbid (severe) obesity due to excess calories, J45.20 - Mild intermittent asthma, uncomplicated, K21.9 - Gastro-esophageal reflux disease without esophagitis, L73.2 - Hidradenitis suppurativa, R73.01 - Impaired fasting glucose, Z00.01 - Encounter for general adult medical examination with abnormal findings Vitamin B12 and Folate 02/24/25 E55.9 - Vitamin D deficiency, unspecified, E66.01 - Morbid (severe) obesity due to excess calories, J45.20 - Mild intermittent asthma, uncomplicated, K21.9 - Gastro-esophageal reflux disease without esophagitis, L73.2 - Hidradenitis suppurativa, R73.01 - Impaired fasting glucose, Z00.01 - Encounter for general adult medical examination with abnormal findings Alanine Aminotransferase 02/24/25 E55.9 - Vitamin D deficiency, unspecified, E66.01 - Morbid (severe) obesity due to excess calories, J45.20 - Mild intermittent asthma, uncomplicated, K21.9 - Gastro-esophageal reflux disease without esophagitis, L73.2 - Hidradenitis suppurativa, R73.01 - Impaired fasting glucose, Z00.01 - Encounter for general adult medical examination with abnormal findings Basic Metabolic Panel Fasting 02/24/25 E55.9 - Vitamin D deficiency, unspecified, E66.01 - Morbid (severe) obesity due to excess calories, J45.20 - Mild intermittent asthma, uncomplicated, K21.9 - Gastro-esophageal reflux disease without esophagitis, L73.2 - Hidradenitis suppurativa, R73.01 - Impaired fasting glucose, Z00.01 - Encounter for general adult medical examination with abnormal findings Referrals Dermatology Referral L73.2 - Hidradenitis suppurativa Medications: Changed From famotidine Take it 1 hour before supper or 2 hours after supper 40 mg PO BEDTIME 90 tabs 1RF To famotidine Take it 1 hour before supper or 2 hours after supper 40 mg PO BID
== END 2025-02-24 09:47 | disposition home or self-care (01) ==
LOC: HO.HMCC 08:51
PROVIDERS: PCP Internal Medicine; Visit Provider Internal Medicine
DX: Z00.01 Encounter for general adult medical examination with abnormal findings (principal); J30.2 Other seasonal allergic rhinitis; Z68.39 Body mass index [BMI] 39.0-39.9, adult; E66.01 Morbid (severe) obesity due to excess calories; J45.20 Mild intermittent asthma, uncomplicated; K21.9 Gastro-esophageal reflux disease without esophagitis; E55.9 Vitamin D deficiency, unspecified; R73.01 Impaired fasting glucose; L73.2 Hidradenitis suppurativa

== ENCOUNTER → 2025-02-24 08:50 | Outpatient (BNVA) | payer OTHER, SELFPAY | PROVIDERS: PCP Internal Medicine; Visit Provider Internal Medicine | DX: Z00.01 Encounter for general adult medical examination with abnormal findings (principal); J45.909 Unspecified asthma, uncomplicated; K21.9 Gastro-esophageal reflux disease without esophagitis; E66.01 Morbid (severe) obesity due to excess calories; J45.20 Mild intermittent asthma, uncomplicated; E55.9 Vitamin D deficiency, unspecified; R73.01 Impaired fasting glucose; L73.2 Hidradenitis suppurativa; Z68.39 Body mass index [BMI] 39.0-39.9, adult | CPT/HCPCS: 96127; 99395 ==